=== PATIENT | male | born 1960 | race African-American/Black ===

== ENCOUNTER 2017-07-06 15:54 | Emergency (ER) | payer BC ==
[2017-07-06] MEDS ORDERED: LIDOCAINE 2% JELLY 6ML IN APPLICATOR. (16:34)
[2017-07-06 16:53] LABS: ADD MAN DIFF? NO
[2017-07-06 16:54] LABS: BASO % 1 % (0-3); EOS # 0.1 x10^3/uL (0.0-0.7); EOS % 1 % (0-3); HEMOGLOBIN 13.5 g/dL (13.0-17.5); LYMPH # 1.6 x10^3/uL (1.0-4.8); LYMPH % 26 % (24-48); MEAN CORPUSCULAR HEMOGLOBIN 28 pg (25-35); MEAN CORPUSCULAR HGB CONC 33 g/dL (31-37); MEAN CORPUSCULAR VOLUME 86 fL (79-100); MONO % 16 % (0-9); NEUT # 3.4 x10^3uL (1.8-7.7); NEUT % 56 % (31-73); PLATELET COUNT 221 x10^3/uL (140-400); RED BLOOD COUNT 4.79 x10^6/uL (4.30-5.70); RED CELL DISTRIBUTION WIDTH 14.8 % (11.5-14.5); WHITE BLOOD COUNT 6.2 x10^3/uL (4.0-11.0)
[2017-07-06] MEDS: ONDANSETRON PF 4 MG/2 ML VIAL. IV (16:56)
[2017-07-06] MEDS: fentaNYL PF VIAL 100 MCG/2 ML VIAL IV (16:58)
[2017-07-06] MEDS: LIDOCAINE WITH 8.4% SOD BICARB 3 ML DISP.SYRIN. INJ (17:04)
[2017-07-06 17:08] LABS: ANION GAP 4 (6-14); BLOOD UREA NITROGEN 16 mg/dL (8-26); BUN/CREATININE RATIO 20 (6-20); CALCIUM 9.3 mg/dL (8.5-10.1); CARBON DIOXIDE 34 mmol/L (21-32); CHLORIDE 99 mmol/L (98-107); CREATININE 0.8 mg/dL (0.7-1.3); GFR 120.6; GLUCOSE 297 mg/dL (70-99); POTASSIUM 3.7 mmol/L (3.5-5.1); SODIUM 137 mmol/L (136-145)
[2017-07-06 17:14] LABS: ALBUMIN 3.5 g/dL (3.4-5.0); ALBUMIN/GLOBULIN RATIO 0.7 (1.0-1.7); ALK PHOS 61 U/L (46-116); ALT (SGPT) 31 U/L (16-63); AST (SGOT) 20 U/L (15-37); TOTAL BILIRUBIN 0.6 mg/dL (0.2-1.0); TOTAL PROTEIN 8.4 g/dL (6.4-8.2)
[2017-07-06 18:06] LABS: BILIRUBIN,URINE NEGATIVE (NEG); COLOR,URINE YELLOW; GLUCOSE,URINE 100 mg/dL (NEG); NITRITE,URINE NEGATIVE (NEG); PROTEIN,URINE 30 mg/dL (NEG-TRACE)
[2017-07-06 18:16] LABS: CLARITY,URINE HAZY
[2017-07-06 18:18] LABS: BACTERIA,URINE MODERATE /HPF (0-FEW); RBC,URINE >40 /HPF (0-2); SQUAMOUS EPITHELIAL CELL,UR FEW /LPF
== END 2017-07-06 18:18 | disposition home or self-care (01) ==
LOC: ER 15:54
DX: N47.1 Phimosis (principal); N47.5 Adhesions of prepuce and glans penis; I10 Essential (primary) hypertension; R73.9 Hyperglycemia, unspecified; E66.9 Obesity, unspecified; Z90.49 Acquired absence of other specified parts of digestive tract; Z68.41 Body mass index [BMI] 40.0-44.9, adult
CPT/HCPCS: 36415; 51702; 54450; 80053; 81001; 85025; 87086; 96374; 96375; 99284-25; J2405; J3010

== ENCOUNTER 2017-11-28 12:06 | Inpatient (IN) | payer BC ==
[2017-11-28 14:29] LABS: ADD MAN DIFF? NO
[2017-11-28 14:31] LABS: BASO # 0.1 x10^3/uL (0.0-0.2); BASO % 1 % (0-3); EOS # 0.1 x10^3/uL (0.0-0.7); EOS % 1 % (0-3); HEMATOCRIT 40.7 % (39.0-53.0); HEMOGLOBIN 13.7 g/dL (13.0-17.5); LYMPH # 1.7 x10^3/uL (1.0-4.8); LYMPH % 24 % (24-48); MEAN CORPUSCULAR HEMOGLOBIN 29 pg (25-35); MEAN CORPUSCULAR HGB CONC 34 g/dL (31-37); MEAN CORPUSCULAR VOLUME 85 fL (79-100); MONO % 14 % (0-9); NEUT # 4.2 x10^3uL (1.8-7.7); NEUT % 60 % (31-73); PLATELET COUNT 219 x10^3/uL (140-400); RED BLOOD COUNT 4.77 x10^6/uL (4.30-5.70); RED CELL DISTRIBUTION WIDTH 14.4 % (11.5-14.5)
[2017-11-28 14:38] LABS: ANION GAP 5 (6-14); BLOOD UREA NITROGEN 16 mg/dL (8-26); BUN/CREATININE RATIO 20 (6-20); CALCIUM 9.8 mg/dL (8.5-10.1); CARBON DIOXIDE 30 mmol/L (21-32); CHLORIDE 101 mmol/L (98-107); CREATININE 0.8 mg/dL (0.7-1.3); GFR 120.1; GLUCOSE 267 mg/dL (70-99); POTASSIUM 3.8 mmol/L (3.5-5.1); SODIUM 136 mmol/L (136-145)
[2017-11-28 14:44] LABS: ALBUMIN 3.5 g/dL (3.4-5.0); ALBUMIN/GLOBULIN RATIO 0.7 (1.0-1.7); ALK PHOS 66 U/L (46-116); ALT (SGPT) 24 U/L (16-63); AST (SGOT) 15 U/L (15-37); TOTAL BILIRUBIN 0.7 mg/dL (0.2-1.0); TOTAL PROTEIN 8.5 g/dL (6.4-8.2)
[2017-11-28] MEDS: ONDANSETRON PF 4 MG/2 ML VIAL. IV (14:58)
[2017-11-28] MEDS: MORPHINE SULFATE 10 MG/ML VIAL. IV (14:59)
[2017-11-28] MEDS ORDERED: fentaNYL PF VIAL 100 MCG/2 ML VIAL ×2 (15:33→16:17)
[2017-11-28] MEDS ORDERED: MIDAZOLAM HCL/PF 2 MG/2 ML VIAL. (15:33)
[2017-11-28 15:36] LABS: PROTHROMBIN TIME PATIENT 12.9 SEC (11.7-14.0)
[2017-11-28] MEDS ORDERED: LIDOCAINE WITH 8.4% SOD BICARB 3 ML DISP.SYRIN. (15:41)
[2017-11-28] MEDS ORDERED: IOHEXOL 240 MG/ML 50ML VIAL. (15:41)
[2017-11-28] MEDS: IOHEXOL 240 MG/ML 50ML VIAL. IJ (16:30)
[2017-11-28] MEDS: MIDAZOLAM HCL/PF 2 MG/2 ML VIAL. IV (16:30)
[2017-11-28] MEDS: fentaNYL PF VIAL 100 MCG/2 ML VIAL IV (16:30)
[2017-11-28] MEDS ORDERED: CONTRAST GIVEN. MC (16:30)
[2017-11-28] MEDS: LIDOCAINE WITH 8.4% SOD BICARB 3 ML DISP.SYRIN. IJ (16:30)
[2017-11-28 17:48] LABS: BILIRUBIN,URINE NEGATIVE (NEG); CLARITY,URINE CLEAR; COLOR,URINE YELLOW; GLUCOSE,URINE 500 mg/dL (NEG); NITRITE,URINE NEGATIVE (NEG); PH,URINE 6.5; PROTEIN,URINE NEGATIVE (NEG-TRACE)
[2017-11-28 18:00] LABS: BACTERIA,URINE FEW /HPF (0-FEW); RBC,URINE >40 /HPF (0-2)
[2017-11-28] MEDS ORDERED: ZOLPIDEM 5 MG TABLET. PO (18:00)
[2017-11-28] MEDS ORDERED: DOCUSATE SODIUM 100 MG CAPSULE. PO (18:00)
[2017-11-28] MEDS ORDERED: oxyCODONE IR 5 MG TABLET PO (18:00)
[2017-11-28] MEDS ORDERED: DEXTROSE 50% 25 GM / 50ML DISP.SYRIN. IV (18:00)
[2017-11-28] MEDS ORDERED: fentaNYL PF VIAL 100 MCG/2 ML VIAL IV (18:00)
[2017-11-28 18:19] LABS: POC GLUCOSE 268 mg/dL (70-99)
[2017-11-28] MEDS: amLODIPine BESYLATE 5 MG TABLET PO (18:41)
[2017-11-28 20:54] LABS: POC GLUCOSE 283 mg/dL (70-99)
[2017-11-29 07:40] LABS: ADD MAN DIFF? NO
[2017-11-29 07:46] LABS: BASO % 0 % (0-3); EOS % 1 % (0-3); HEMATOCRIT 40.1 % (39.0-53.0); HEMOGLOBIN 13.8 g/dL (13.0-17.5); LYMPH # 1.4 x10^3/uL (1.0-4.8); LYMPH % 20 % (24-48); MEAN CORPUSCULAR HEMOGLOBIN 30 pg (25-35); MEAN CORPUSCULAR HGB CONC 34 g/dL (31-37); MEAN CORPUSCULAR VOLUME 86 fL (79-100); MONO # 0.9 x10^3/uL (0.0-1.1); MONO % 13 % (0-9); NEUT # 4.8 x10^3uL (1.8-7.7); NEUT % 66 % (31-73); PLATELET COUNT 233 x10^3/uL (140-400); RED BLOOD COUNT 4.68 x10^6/uL (4.30-5.70); RED CELL DISTRIBUTION WIDTH 14.6 % (11.5-14.5); WHITE BLOOD COUNT 7.2 x10^3/uL (4.0-11.0)
[2017-11-29 08:10] LABS: POC GLUCOSE 263 mg/dL (70-99)
[2017-11-29 08:14] LABS: ANION GAP 2 (6-14); BLOOD UREA NITROGEN 12 mg/dL (8-26); CALCIUM 9.5 mg/dL (8.5-10.1); CARBON DIOXIDE 36 mmol/L (21-32); CHLORIDE 101 mmol/L (98-107); CREATININE 0.9 mg/dL (0.7-1.3); GFR 104.9; GLUCOSE 280 mg/dL (70-99); POTASSIUM 3.9 mmol/L (3.5-5.1); SODIUM 139 mmol/L (136-145)
[2017-11-29] MEDS: amLODIPine BESYLATE 5 MG TABLET PO (08:14)
[2017-11-29] MEDS: INSULIN LISPRO 300 UNITS/3 ML INSULN.PEN. SQ ×2 (08:24→12:00)
[2017-11-29 19:37] LABS: POC GLUCOSE 262 mg/dL (70-99)
== END 2017-11-29 13:30 | disposition home or self-care (01) | DRG 696 ==
LOC: 4 NORTH 17:42 → ER 12:06 → 4 NORTH 16:40
PROC: BT101ZZ Fluoroscopy of Bladder using Low Osmolar Contrast (ICD-10-PCS; principal; 2017-11-28)
PROC: 0T9B30Z Drainage of Bladder with Drainage Device, Percutaneous Approach (ICD-10-PCS; 2017-11-28)
DX: R33.9 Retention of urine, unspecified (principal); I10 Essential (primary) hypertension; N13.9 Obstructive and reflux uropathy, unspecified; N47.1 Phimosis
CPT/HCPCS: 36415; 51102; 51600; 51701; 76942; 80048; 80053; 81001; 82962; 85025; 85610; 96374; 96375; 99152; 99153; 99285; 99285-25; C1892; J1815; J1956; J2250; J2270; J2405; J3010; Q9966

== ENCOUNTER → 2018-01-19 | Day surgery (SDC) | payer BC ==
[~2018-01-19] VITALS: Ht 185.4 cm; Wt 147.0 kg
[~2018-01-19] MED LIST: AMLO2.5T2 PO; BACITRACIN TOPICAL OINT 14GM TUBE. TP ONE; BUPIVACAINE 0.5% 50 ML VIAL. ONE; CIPR250T30 PO; DESFLURANE > 120 MINUTES IH ONE; DEXAMETHASONE SOD PHOS 20 MG/5 ML VIAL. ONE; FAMOTIDINE 20 MG/2 ML VIAL ONE; HYDR-971 PO; HYDROcodone/APAP 5/325MG 1 TAB TABLET PO ONE; IV RINGERS,LACTATED 1000ML 1,000 ML IV SCH; LABETALOL 20 MG/4 ML DISP.SYRIN. IVP PRN; LIDOCAINE 1% PF 2 ML VIAL. ID PRN; LIDOCAINE 2% JELLY 6ML IN APPLICATOR. ONE; LIDOCAINE 2% PF Vial for OR 5 ML VIAL. ONE; LISI-338 PO; METF500T9 PO; MIDAZOLAM HCL/PF 2 MG/2 ML VIAL. ONE; MORPHINE SULFATE 2 MG/ML VIAL. IV PRN; ONDANSETRON PF 4 MG/2 ML VIAL. IV PRN; ONDANSETRON PF 4 MG/2 ML VIAL. ONE; OXYB5TAB7 PO; PROCHLORPERAZINE 10 MG/2 ML VIAL. IV PRN; PROPOFOL 20 ML IV ONE; SCOPOLAMINE 1.5MG PATCH. TD ONE; SUCCINYLCHOLINE 200 MG/10 ML VIAL. ONE; SULF1TAB23 PO; fentaNYL PF VIAL 100 MCG/2 ML VIAL IV PRN; fentaNYL PF VIAL 100 MCG/2 ML VIAL ONE
[2018-01-19] MEDS: fentaNYL PF VIAL 100 MCG/2 ML VIAL IV PRN ×2 (15:42→15:59)
--- NOTE | 2018-01-19 15:46 | PDOC ---
BRIEF OPERATIVE NOTE Pre-Op Diagnosis phimosis Post-Op Diagnosis phimosis, urethral strictures Procedure Performed dorsal slit, cystoscopy, suprapubic tube exchange Surgeon Lanre Altamirano Nuclear Medicine Tech none Anesthesia Type: General Blood Loss 20 cc Specimens Obtained prepuce Findings phimosis, dense glanular adhesions, bulbar and membranous urethral stricture, vitiligo vs lichen sclerosis Complications none Operative Note dictated LANRE ALTAMIRANO MD Jan 19, 2018 15:46
--- NOTE | 2018-01-19 15:53 | DISCH ---
DISCHARGE INSTRUCTIONS Condition on Discharge Condition on Discharge: Stable Activity After Discharge Activity Instructions for Disc: Activity as tolerated Bathing Instructions: Shower-keep dressing dry (After your dressing is removed in 48 hrs.) Lifting Instructions after Dis: Add. restrict see below (No restrictions ) Driving Instructions after Dis: Do not drive today, Other, see below (Do not drive if taking narcotic pain medications) Weight Bearing Status after Di: No restrictions Diet after Discharge Diet after Discharge: Regular Wound Incision Care Wound/Incision Care: Ice to area for comfort, Other, see below (Remove dressing in 48 hrs unless it feels too tight. Clean the operative site daily with soap and water. Apply veseline to the incision. ) Wound Care Equipment: Dressings Checks after Discharge DC Comment: Record voided volumes and post-void residuals by uncapping your tube. Contacting the DR. after DC Call your doctor for: Fever, uncontrolled pain, bleeding, concerns for infection, trouble urinating, or other concerns. Follow-Up Follow up with: Dr. Altamirano in 2 weeks. LANRE ALTAMIRANO MD Jan 19, 2018 15:53
--- NOTE | 2018-01-19 16:36 | OP ---
DATE OF SURGERY: 01/19/2018 PREOPERATIVE DIAGNOSIS: Phimosis. POSTOPERATIVE DIAGNOSES: 1. Phimosis. 2. Urethral stricture. ANESTHESIA: General. COMPLICATIONS: None. BLOOD LOSS: 20 mL. INDICATIONS: The patient is a 57-year-old male who presented urgently to the Emergency Room with a very tight phimosis. He underwent a suprapubic tube placement at that time and presents today for the above-mentioned procedures. DESCRIPTION OF PROCEDURE: The patient was met in the preoperative holding area where his procedure, risks, benefits, alternatives were reviewed in detail. Informed consent was obtained. He was brought back to the operating room and placed supine on the operating table. A timeout was called, identifying the correct patient, procedure, preoperative antibiotics. All members of the surgical team were in agreement. General anesthesia was induced and he was repositioned into dorsal lithotomy, prepped and draped in a sterile fashion. Next, Koki clamps were placed at the 12 o'clock position on his prepuce and held in place for roughly 2 minutes. These were then divided sharply. We continue this until we reached as proximally on the glans as possible. He did have very dense adhesions to the glans itself and we were really only able to expose the anterior surface and some of the lateral surfaces towards the meatus. The skin edges were oversewn with 3-0 chromic. Hemostasis was excellent. A piece of the prepuce was sent to pathology labeled prepuce. Next, we placed a 17-Vietnamese rigid cystoscope atraumatically through his meatus into his urethra. There were no abnormalities noted within the anterior urethra. In the distal bulbar urethra, there were some ring-like strictures of which the scope was able to traverse and dilate. Pictures of these were taken. He also had a membranous urethral stricture that was also able to be dilated with the scope. His prostate was nonobstructing; however, he had a very high bladder neck. This made cystoscopy somewhat challenging. The floor of his bladder as well as some of the sidewalls were covered in bullous edema and his bladder was extremely friable and bled very easily as best we can tell from cystoscopy with 30 and 70 degree lenses. There were no mucosal lesions concerning for malignancy. There were no stones or other debris. We were unable to identify his ureteral orifices on the trigone. Attempts at placing an 18-Vietnamese Councill catheter through the suprapubic tube tract were unsuccessful. A sensor wire was then fed through the tract and into the bladder under direct vision. Over the wire, a 16-Vietnamese self-made Councill catheter was placed without difficulty. The balloon was inflated with 10 mL of sterile water and hubbed at the anterior bladder surface. The scope was then looked out under direct vision. Next, we applied Dermabond to his incisions and covered these incisions as well as his glans and bacitracin ointment. A gauze and Coban dressing were applied loosely to the penis and the suprapubic tube was secured with a silk. The suprapubic tube was plugged. He was then awoken and transferred to the PACU in stable condition with plans to undergo a voiding trial at home and if he is able to void without issue, we will remove his suprapubic tube. He has followup appointment in roughly 2 weeks. LANRE ALTAMIRANO MD DR: REGINALDO/mike JOB#: [id number] / [id number] СЕРГЕЙ
[2018-01-19 16:55] VITALS: BP 177/99
--- NOTE | 2018-01-23 09:10 | PATHOLOGY ---
[facility] Accession Number: [id number] . 01 Material submitted: . PREPUCE TISSUE . 02 Diagnosis: Segment of skin, prepuce: - Balanitis xerotica obliterans. [facility]/01/22/2018 . 02 Comment: There is no evidence of malignancy. (JPM/db; 01/22/18) . 02 Electronically signed: . Maurizio Dunn MD, Pathologist NPI- [id number] . 01 Gross description: . The specimen is received in formalin, labeled "Arturo JR, Carlos and prepuce", is a U-shaped soft tissue measuring 3.0 x 1.5 x 0.6 cm. There is a rim of redmond-white skin measuring up to 0.7 cm. One surface is inked blue, opposite black and one tip is inked green. The specimen is serially section and entirely submitted in A1-A3 with tips in A3. Photographs are taken. . . ([facility]; 01/20/2018) [facility]S . 02 Pathologist provided ICD-10: N48.0 . 02 CPT . 093403 Performed at: 01 [facility] [address], [place] [id number] MD Quinton Sunshine MD Phone: [phone] Performed at: 02 [facility] [address] [place], [place] [id number] MD Maurizio Dunn MD Phone: [phone]
== END | disposition home or self-care (01) ==
LOC: SURG 11:09
PROVIDERS: ATTEND Urology
DX: Z46.6 Encounter for fitting and adjustment of urinary device (principal); N48.0 Leukoplakia of penis; N47.1 Phimosis; N35.9 Urethral stricture, unspecified; I10 Essential (primary) hypertension; E11.9 Type 2 diabetes mellitus without complications; Z83.3 Family history of diabetes mellitus; Z82.49 Family history of ischemic heart disease and other diseases of the circulatory system; Z90.49 Acquired absence of other specified parts of digestive tract; E66.9 Obesity, unspecified; Z68.41 Body mass index [BMI] 40.0-44.9, adult; Z72.89 Other problems related to lifestyle; Z98.890 Other specified postprocedural states; Z79.84 Long term (current) use of oral hypoglycemic drugs; Z79.899 Other long term (current) drug therapy
CPT/HCPCS: 51705; 54161; 82962; C1713; J0330; J1100; J2001; J2250; J2405; J2704; J3010; J7120; S0028; 88304; A7015; J3490; A4461

== ENCOUNTER 2018-10-28 18:48 | Inpatient (IN) | payer BC, SELFPAY ==
[~2018-10-28] VITALS: Ht 185.4 cm; Wt 163.5 kg
[~2018-10-28 18:48] MED LIST changes: -BACITRACIN TOPICAL OINT 14GM TUBE. TP ONE; -BUPIVACAINE 0.5% 50 ML VIAL. ONE; -DESFLURANE > 120 MINUTES IH ONE; -DEXAMETHASONE SOD PHOS 20 MG/5 ML VIAL. ONE; -FAMOTIDINE 20 MG/2 ML VIAL ONE; +HYDR-3164 PO; -HYDR-971 PO; -HYDROcodone/APAP 5/325MG 1 TAB TABLET PO ONE; -IV RINGERS,LACTATED 1000ML 1,000 ML IV SCH; -LABETALOL 20 MG/4 ML DISP.SYRIN. IVP PRN; -LIDOCAINE 1% PF 2 ML VIAL. ID PRN; -LIDOCAINE 2% JELLY 6ML IN APPLICATOR. ONE; -LIDOCAINE 2% PF Vial for OR 5 ML VIAL. ONE; -MIDAZOLAM HCL/PF 2 MG/2 ML VIAL. ONE; -MORPHINE SULFATE 2 MG/ML VIAL. IV PRN; -ONDANSETRON PF 4 MG/2 ML VIAL. IV PRN; -ONDANSETRON PF 4 MG/2 ML VIAL. ONE; -PROCHLORPERAZINE 10 MG/2 ML VIAL. IV PRN; -PROPOFOL 20 ML IV ONE; -SCOPOLAMINE 1.5MG PATCH. TD ONE; -SUCCINYLCHOLINE 200 MG/10 ML VIAL. ONE; -fentaNYL PF VIAL 100 MCG/2 ML VIAL IV PRN; -fentaNYL PF VIAL 100 MCG/2 ML VIAL ONE
[2018-10-28] MEDS ORDERED: FUROSEMIDE 40 MG/4 ML VIAL. IVP ONE (19:15)
[2018-10-28 19:22] LABS: BASO % 1 % (0-3); EOS % 1 % (0-3); HEMOGLOBIN 13.2 g/dL (13.0-17.5); LYMPH # 1.2 x10^3/uL (1.0-4.8); LYMPH % 17 % (24-48); MEAN CORPUSCULAR HEMOGLOBIN 27 pg (25-35); MEAN CORPUSCULAR HGB CONC 31 g/dL (31-37); MEAN CORPUSCULAR VOLUME 86 fL (79-100); MONO # 1.4 x10^3/uL (0.0-1.1); MONO % 21 % (0-9); NEUT # 4.3 x10^3uL (1.8-7.7); NEUT % 62 % (31-73); PLATELET COUNT 279 x10^3/uL (140-400); RED BLOOD COUNT 4.86 x10^6/uL (4.30-5.70); RED CELL DISTRIBUTION WIDTH 16.9 % (11.5-14.5)
[2018-10-28 19:30] LABS: CALCIUM 9.3 mg/dL (8.5-10.1); CREATININE 1.4 mg/dL (0.7-1.3); GFR 62.8; POTASSIUM 5.2 mmol/L (3.5-5.1)
[2018-10-28 19:35] LABS: ALBUMIN/GLOBULIN RATIO 0.7 (1.0-1.7); TOTAL BILIRUBIN 1.3 mg/dL (0.2-1.0); TOTAL PROTEIN 7.2 g/dL (6.4-8.2)
--- NOTE | 2018-10-28 19:37 | PHYS DOC ---
Past Medical History Past Medical History: Hypertension, Other Additional Past Medical Histor: URINARY RETENTION Past Surgical History: Appendectomy Additional Past Surgical Histo: RIGHT KNEE Alcohol Use: Rarely Drug Use: None Adult General Chief Complaint Chief Complaint: SHORTNESS OF BREATH HPI HPI Patient is a 58-year-old male who presents with complaint of shortness of breath. Patient states that he feels like the shortness of breath is probably been present for around the last few weeks. He states that shortness of breath is worsened with exertion and he states that he is having to sleep partially sitting up because he becomes so short of breath when he tries to lie flat. He denies any chest pain. He does admit to some fluttery feelings in his chest however. He denies any nausea, vomiting or diaphoresis. He does state that he has noticed increase in swelling in his legs. Patient states that nothing is improving his symptoms.[] Review of Systems Review of Systems Constitutional: Denies fever or chills [] Respiratory: Positive shortness of breath [] Cardiovascular: No additional information not addressed in HPI [] GI: Denies abdominal pain, nausea, vomiting or diarrhea [] Integument: Denies rash or skin lesions [] Neurologic: Denies headache, focal weakness or sensory changes [] All other systems were reviewed and found to be within normal limits, except as documented in this note. Current Medications Current Medications Current Medications Medications (Trade) Dose Ordered Sig/Ayush Start Time Stop Time Status Last Admin Dose Admin Furosemide (Lasix) 60 mg 1X ONCE 10/28/18 19:15 10/28/18 19:16 DC 10/28/18 19:31 60 MG Info (CONTRAST GIVEN -- Rx MONITORING) 1 each PRN DAILY PRN 10/28/18 21:15 10/30/18 21:14 Iohexol (Omnipaque 350 Mg/ml) 100 ml 1X ONCE 10/28/18 21:15 10/28/18 21:16 DC 10/28/18 21:15 100 ML Allergies Allergies Allergies Coded Allergies Type Severity Reaction Last Updated Verified No Known Drug Allergies 01/19/18 No Physical Exam Physical Exam Constitutional: Well developed, well nourished, no acute distress, non-toxic appearance. [] HENT: Normocephalic, atraumatic, bilateral external ears normal, oropharynx moist, no oral exudates, nose normal. [] Eyes: PERRLA, EOMI, conjunctiva normal, no discharge. [] Neck: Normal range of motion, no tenderness, supple, no stridor. [] Cardiovascular:Heart rate regular rhythm, no murmur [] Lungs & Thorax: Rales are noted in the lung bases to auscultation [] Abdomen: Bowel sounds normal, soft, no tenderness. [] Skin: Warm, dry, no erythema, no rash. [] Extremities: No tenderness, no cyanosis, no clubbing, ROM intact, with 3+ lower extremity pitting edema. [] Neurologic: Alert and oriented X 3, no focal deficits noted. [] Current Patient Data Vital Signs Vital Signs Date Time Temp Pulse Resp B/P (MAP) Pulse Ox O2 Delivery O2 Flow Rate FiO2 10/28/18 19:00 97.9 102 24 157/85 (109) 93 Nasal Cannula 4.0 97.9 Lab Values Laboratory Tests Test 10/28/18 19:05 10/28/18 20:07 White Blood Count 7.0 x10^3/uL (4.0-11.0) Red Blood Count 4.86 x10^6/uL (4.30-5.70) Hemoglobin 13.2 g/dL (13.0-17.5) Hematocrit 42.0 % (39.0-53.0) Mean Corpuscular Volume 86 fL (79-100) Mean Corpuscular Hemoglobin 27 pg (25-35) Mean Corpuscular Hemoglobin Concent 31 g/dL (31-37) Red Cell Distribution Width 16.9 % (11.5-14.5) H Platelet Count 279 x10^3/uL (140-400) Neutrophils (%) (Auto) 62 % (31-73) Lymphocytes (%) (Auto) 17 % (24-48) L Monocytes (%) (Auto) 21 % (0-9) H Eosinophils (%) (Auto) 1 % (0-3) Basophils (%) (Auto) 1 % (0-3) Neutrophils # (Auto) 4.3 x10^3uL (1.8-7.7) Lymphocytes # (Auto) 1.2 x10^3/uL (1.0-4.8) Monocytes # (Auto) 1.4 x10^3/uL (0.0-1.1) H Eosinophils # (Auto) 0.0 x10^3/uL (0.0-0.7) Basophils # (Auto) 0.0 x10^3/uL (0.0-0.2) Segmented Neutrophils % 58 % (35-66) Band Neutrophils % 2 % (0-9) Lymphocytes % 22 % (24-48) L Monocytes % 15 % (0-10) H Eosinophils % 2 % (0-5) Basophils % 1 % (0-3) Platelet Estimate Adequate (ADEQUATE) Polychromasia Slight D-Dimer (Melva) 5.30 ug/mlFEU (0.00-0.50) H Sodium Level 141 mmol/L (136-145) Potassium Level 5.2 mmol/L (3.5-5.1) H Chloride Level 100 mmol/L (98-107) Carbon Dioxide Level 35 mmol/L (21-32) H Anion Gap 6 (6-14) Blood Urea Nitrogen 44 mg/dL (8-26) H Creatinine 1.4 mg/dL (0.7-1.3) H Estimated GFR (Cockcroft-Gault) 62.8 BUN/Creatinine Ratio 31 (6-20) H Glucose Level 65 mg/dL (70-99) L Calcium Level 9.3 mg/dL (8.5-10.1) Total Bilirubin 1.3 mg/dL (0.2-1.0) H Aspartate Amino Transferase (AST) 34 U/L (15-37) Alanine Aminotransferase (ALT) 44 U/L (16-63) Alkaline Phosphatase 76 U/L (46-116) Troponin I Quantitative < 0.017 ng/mL (0.000-0.055) QE-Vif-O-Type Natriuretic Peptide 5329 pg/mL (0-124) H Total Protein 7.2 g/dL (6.4-8.2) Albumin 3.0 g/dL (3.4-5.0) L Albumin/Globulin Ratio 0.7 (1.0-1.7) L Urine Collection Type Unknown Urine Color Yellow Urine Clarity Clear Urine pH 5.5 Urine Specific [place] 1.010 Urine Protein Negative mg/dL (NEG-TRACE) Urine Glucose (UA) Negative mg/dL (NEG) Urine Ketones (Stick) Negative mg/dL (NEG) Urine Blood Negative (NEG) Urine Nitrite Negative (NEG) Urine Bilirubin Negative (NEG) Urine Urobilinogen Dipstick 2.0 mg/dL (0.2 mg/dL) Urine Leukocyte Esterase Negative (NEG) Urine RBC 0 /HPF (0-2) Urine WBC 1-4 /HPF (0-4) Urine Squamous Epithelial Cells Mod /LPF Urine Bacteria 0 /HPF (0-FEW) Urine Hyaline Casts Many /HPF Urine Mucus Mod /LPF Laboratory Tests 10/28/18 19:05 Laboratory Tests 10/28/18 19:05 EKG EKG [] Interpretation Time: EKG demonstrates sinus rhythm with rate of 99. Radiology/Procedures Radiology/Procedures [] Impressions: PROCEDURE: CT ANGIOGRAPHY CHEST PQRS Compliance statement: One or more of the following individualized dose reduction techniques were utilized for this examination: 1. Automated exposure control. 2. Adjustment of the mA and/or kV according to patient size. 3. Use of iterative reconstruction technique. Indication:Shortness of breath. TECHNIQUE: CT angiogram of the chest with IV contrast with multiplanar MIP reformats. COMPARISON: None FINDINGS: Suboptimal PE study due to contrast bolus timing. No central filling defects in the pulmonary arteries. Evaluation of segmental and subsegmental pulmonary arteries is limited. Heart is moderately enlarged in size. No pericardial effusion. Moderate right pleural effusion. No enlarged axillary, mediastinal or hilar adenopathy. Motion artifact is seen in the lungs limiting optimal evaluation. Consolidation is seen in the right lung base. Small volume ascites is seen. Small amount of perigastric fluid is seen, nonspecific. No suspicious bony lesion. IMPRESSION: 1. Suboptimal PE study due to contrast bolus timing and breathing motion artifact. No central embolus. Laceration of segmental and subsegmental pulmonary arteries is limited. 2. Small to moderate volume right pleural effusion with consolidation in the right lung base which may be secondary to passive atelectasis from adjacent pleural effusion or pneumonia. 3. Small volume perihepatic ascites, nonspecific. Electronically signed by: Michael Camargo DO (10/28/2018 9:53 PM) [facility] Course & Med Decision Making Course & Med Decision Making Pertinent Labs and Imaging studies reviewed. (See chart for details) [] Dragon Disclaimer Dragon Disclaimer This electronic medical record was generated, in whole or in part, using a voice recognition dictation system. Departure Departure Impression: Primary Impression: CHF (congestive heart failure) Additional Impression: Hypoxemia Disposition: ADMITTED INPATIENT Admitting Physician: Other (Dr. Dean) Condition: IMPROVED Referrals: UNKNOWN PCP NAME (PCP) Problem Qualifiers Primary Impression: CHF (congestive heart failure) Heart failure type: unspecified Heart failure chronicity: unspecified Qualified Codes: I50.9 - Heart failure, unspecified SUNIL REICH Jr. DO October 28, 2018 19:37
--- NOTE | 2018-10-28 19:41 | RAD ---
Single view chest dated 10/28/2018. No comparison available. CLINICAL INDICATION: Dyspnea. FINDINGS: Single upright portable exam performed. Heart size mildly enlarged. Elevation of right hemidiaphragm. Lungs are clear, without focal consolidation. Vascular interstitium within normal limits. No pleural effusion or pneumothorax. IMPRESSION: No acute radiographic abnormality. Electronically signed by: Nathaniel Louise MD (10/28/2018 7:38 PM) [facility]
[2018-10-28 20:08] LABS: % BASOS 1 % (0-3)
[2018-10-28 20:09] LABS: % BANDS 2 % (0-9); % EOS 2 % (0-5); % LYMPHS 22 % (24-48); % MONOS 15 % (0-10); % SEGS 58 % (35-66); PLT ESTIMATE ADEQUATE (ADEQUATE)
[2018-10-28 20:10] LABS: POLYCHROMASIA SLIGHT
[2018-10-28 20:18] LABS: BILIRUBIN,URINE NEGATIVE (NEG); CLARITY,URINE CLEAR; COLOR,URINE YELLOW; NITRITE,URINE NEGATIVE (NEG); PH,URINE 5.5; PROTEIN,URINE NEGATIVE (NEG-TRACE)
[2018-10-28 20:26] LABS: HYALINE CASTS, URINE MANY /HPF; SQUAMOUS EPITHELIAL CELL,UR MOD /LPF
[2018-10-28 20:28] LABS: BACTERIA,URINE 0 /HPF (0-FEW); RBC,URINE 0 /HPF (0-2)
[2018-10-28] MEDS ORDERED: CONTRAST GIVEN. MC PRN (21:15)
[2018-10-28] MEDS ORDERED: IOHEXOL 350 MG/ML 100 ML VIAL. IV ONE (21:15)
--- NOTE | 2018-10-28 21:56 | RAD ---
PQRS Compliance statement: One or more of the following individualized dose reduction techniques were utilized for this examination: 1. Automated exposure control. 2. Adjustment of the mA and/or kV according to patient size. 3. Use of iterative reconstruction technique. Indication:Shortness of breath. TECHNIQUE: CT angiogram of the chest with IV contrast with multiplanar MIP reformats. COMPARISON: None FINDINGS: Suboptimal PE study due to contrast bolus timing. No central filling defects in the pulmonary arteries. Evaluation of segmental and subsegmental pulmonary arteries is limited. Heart is moderately enlarged in size. No pericardial effusion. Moderate right pleural effusion. No enlarged axillary, mediastinal or hilar adenopathy. Motion artifact is seen in the lungs limiting optimal evaluation. Consolidation is seen in the right lung base. Small volume ascites is seen. Small amount of perigastric fluid is seen, nonspecific. No suspicious bony lesion. IMPRESSION: 1. Suboptimal PE study due to contrast bolus timing and breathing motion artifact. No central embolus. Laceration of segmental and subsegmental pulmonary arteries is limited. 2. Small to moderate volume right pleural effusion with consolidation in the right lung base which may be secondary to passive atelectasis from adjacent pleural effusion or pneumonia. 3. Small volume perihepatic ascites, nonspecific. Electronically signed by: Michael Camargo DO (10/28/2018 9:53 PM) [facility]
[2018-10-28] MEDS ORDERED: MORPHINE SULFATE 2 MG/ML VIAL. IV PRN (22:15)
[2018-10-28] MEDS ORDERED: ACETAMINOPHEN 325 MG TABLET. PO PRN (22:15)
[2018-10-28] MEDS ORDERED: ONDANSETRON PF 4 MG/2 ML VIAL. IV PRN (22:15)
[2018-10-29] MEDS ORDERED: hydrALAZINE 20 MG/ML VIAL. IVP ONE (00:30)
[2018-10-29] MEDS ORDERED: GLIM1TAB PO (01:40)
[2018-10-29] MEDS ORDERED: FURO40TA4 PO (01:40)
[2018-10-29] MEDS ORDERED: POTA20TA82 PO (01:40)
[2018-10-29] MEDS ORDERED: METF500T9 PO (01:40)
[2018-10-29] MEDS ORDERED: AMLO5TAB10 PO (01:40)
[2018-10-29] MEDS ORDERED: LISI1TAB5 PO (01:40)
[2018-10-29 04:19] LABS: BASO # 0.1 x10^3/uL (0.0-0.2); BASO % 1 % (0-3); EOS # 0.1 x10^3/uL (0.0-0.7); EOS % 1 % (0-3); HEMATOCRIT 40.7 % (39.0-53.0); HEMOGLOBIN 12.8 g/dL (13.0-17.5); LYMPH # 1.1 x10^3/uL (1.0-4.8); LYMPH % 15 % (24-48); MEAN CORPUSCULAR HEMOGLOBIN 27 pg (25-35); MEAN CORPUSCULAR HGB CONC 31 g/dL (31-37); MEAN CORPUSCULAR VOLUME 86 fL (79-100); MONO # 1.6 x10^3/uL (0.0-1.1); MONO % 21 % (0-9); NEUT # 4.7 x10^3uL (1.8-7.7); NEUT % 62 % (31-73); PLATELET COUNT 272 x10^3/uL (140-400); RED BLOOD COUNT 4.71 x10^6/uL (4.30-5.70); RED CELL DISTRIBUTION WIDTH 16.5 % (11.5-14.5); WHITE BLOOD COUNT 7.5 x10^3/uL (4.0-11.0)
[2018-10-29 04:26] LABS: ALBUMIN/GLOBULIN RATIO 0.7 (1.0-1.7); CALCIUM 9.3 mg/dL (8.5-10.1); CREATININE 1.2 mg/dL (0.7-1.3); POTASSIUM 4.5 mmol/L (3.5-5.1); TOTAL BILIRUBIN 1.3 mg/dL (0.2-1.0); TOTAL PROTEIN 7.2 g/dL (6.4-8.2)
--- NOTE | 2018-10-29 06:55 | EKG ---
[facility] [address] [place] [address] Test Date: 2018-10-28 Test Time: 19:03:08 Pat Name: JOHN MUNOZ Department: Room: Gender: Linux Developer: : 1960 Requested By: SUNIL REICH Order Number: [id number] Reading MD: Measurements Intervals [place] Rate: 99 P: 45 CO: 182 QRS: 104 QRSD: 76 T: 39 QT: 340 QTc: 442 Interpretive Statements SINUS RHYTHM RIGHTWARD AXIS LOW LIMB LEAD VOLTAGE QRS(T) CONTOUR ABNORMALITY CONSIDER INFERIOR MYOCARDIAL DAMAGE POSSIBLY ABNORMAL ECG RI6.01 No previous ECG available for comparison
[2018-10-29 07:00] VITALS: BP 104/76
[2018-10-29 08:33] LABS: MAGNESIUM 2.1 mg/dL (1.8-2.4)
[2018-10-29 08:34] LABS: CHOLESTEROL/HDL RATIO 4.4
[2018-10-29] MEDS ORDERED: PERFLUTREN PROTEIN-A MICROSPHR 0.22 MG/ML 3 ML VIAL. IV ONE ×2 (10:54→11:00)
[2018-10-29 11:00] VITALS: BP 114/70
--- NOTE | 2018-10-29 11:08 | PDOC2 ---
CARDIAC CONSULT DATE OF CONSULT Date of Consult DATE: 10/29/18 TIME: 10:42 REASON FOR CONSULT Reason for Consult: CHF REFERRING PHYSICIAN Referring Physician: Ru SOURCE Source: Chart review, Patient HISTORY OF PRESENT ILLNESS HISTORY OF PRESENT ILLNESS This is a pleasant 58 yo male admitted for complains of shortness of breath, Reports that he has been SOA lately and in the last week he has been more SOA. Positive for KMIBROUGH, orthonea and PND. He has never been tested for FLAKITO. Denies any chest pain, but has occasional palpitations. Denies any dizziness or passing out. He did fall about a week ago without injuries from slipping but no losing consciousness. Reports no past CAD, VTE or any liver disease. He has diabetes and HTN and takes his meds regularly. BG around 140s at home but does not check his BP regularly. He is unemplyed but no disability. No recent pneumonia, no fever or chills. PAST MEDICAL HISTORY Cardiovascular: HTN, Hyperlipidemia Pulmonary: No pertinent hx CENTRAL NERVOUS SYSTEM: Other (No pertinent history) GI: No pertinent hx Heme/Onc: No pertinent hx Hepatobiliary: No pertinent hx Psych: No pertinent hx Musculoskeletal: Osteoarthritis Rheumatologic: No pertinent hx Infectious disease: No pertinent hx ENT: No pertinent hx Renal/: UTI, Other (phimoes, urinary retention) Endocrine: Diabetes (2) Dermatology: No pertinent hx PAST SURGICAL HISTORY Past Surgical History: Total knee replacement (left knee) FAMILY HISTORY Family History noncontributory to CV SOCIAL HISTORY Smoke: No ALCOHOL: none Lives: with Family CURRENT MEDICATIONS CURRENT MEDICATIONS Current Medications Medications (Trade) Dose Ordered Sig/Ayush Route PRN Reason Start Time Stop Time Status Last Admin Dose Admin Furosemide (Lasix) 60 mg 1X ONCE IVP 10/28/18 19:15 10/28/18 19:16 DC 10/28/18 19:31 Iohexol (Omnipaque 350 Mg/ml) 100 ml 1X ONCE IV 10/28/18 21:15 10/28/18 21:16 DC 10/28/18 21:15 Hydralazine HCl (Apresoline Inj) 10 mg 1X ONCE IVP 10/29/18 00:30 10/29/18 00:31 DC 10/29/18 00:32 ALLERGIES ALLERGIES: Coded Allergies: No Known Drug Allergies (Unverified , 01/19/18) ROS Review of System 14 point ROS evaluated with pertinent positives noted per HPI PHYSICAL EXAM General: Alert, Oriented X3, Cooperative, mild distress HEENT: Atraumatic, Mucous membr. moist/pink Lungs: Other (basilar crackles) Heart: Regular rate, Other (distant heart sounds due to body habitus) Abdomen: Soft, Other (anasarca) Extremities: No cyanosis, Other (3-4+ bilateral Le pitting edema) Skin: Other (venous dermatitis) Neuro: Normal speech, Sensation intact Psych/Mental Status: Mood NL MUSCULOSKELETAL: Osteoarthritic changes both hands VITALS VITALS Vital Signs Date Time Temp Pulse Resp B/P (MAP) Pulse Ox O2 Delivery O2 Flow Rate FiO2 10/29/18 07:00 98.8 101 20 104/76 (85) 96 NonRebreather Mask 98.8 10/29/18 00:24 4.0 LABS Lab: Laboratory Tests Test 10/28/18 19:05 10/28/18 20:07 10/29/18 01:10 10/29/18 03:50 White Blood Count 7.0 x10^3/uL (4.0-11.0) 7.5 x10^3/uL (4.0-11.0) Red Blood Count 4.86 x10^6/uL (4.30-5.70) 4.71 x10^6/uL (4.30-5.70) Hemoglobin 13.2 g/dL (13.0-17.5) 12.8 g/dL (13.0-17.5) Hematocrit 42.0 % (39.0-53.0) 40.7 % (39.0-53.0) Mean Corpuscular Volume 86 fL (79-100) 86 fL (79-100) Mean Corpuscular Hemoglobin 27 pg (25-35) 27 pg (25-35) Mean Corpuscular Hemoglobin Concent 31 g/dL (31-37) 31 g/dL (31-37) Red Cell Distribution Width 16.9 % (11.5-14.5) 16.5 % (11.5-14.5) Platelet Count 279 x10^3/uL (140-400) 272 x10^3/uL (140-400) Neutrophils (%) (Auto) 62 % (31-73) 62 % (31-73) Lymphocytes (%) (Auto) 17 % (24-48) 15 % (24-48) Monocytes (%) (Auto) 21 % (0-9) 21 % (0-9) Eosinophils (%) (Auto) 1 % (0-3) 1 % (0-3) Basophils (%) (Auto) 1 % (0-3) 1 % (0-3) Neutrophils # (Auto) 4.3 x10^3uL (1.8-7.7) 4.7 x10^3uL (1.8-7.7) Lymphocytes # (Auto) 1.2 x10^3/uL (1.0-4.8) 1.1 x10^3/uL (1.0-4.8) Monocytes # (Auto) 1.4 x10^3/uL (0.0-1.1) 1.6 x10^3/uL (0.0-1.1) Eosinophils # (Auto) 0.0 x10^3/uL (0.0-0.7) 0.1 x10^3/uL (0.0-0.7) Basophils # (Auto) 0.0 x10^3/uL (0.0-0.2) 0.1 x10^3/uL (0.0-0.2) Segmented Neutrophils % 58 % (35-66) Band Neutrophils % 2 % (0-9) Lymphocytes % 22 % (24-48) Monocytes % 15 % (0-10) Eosinophils % 2 % (0-5) Basophils % 1 % (0-3) Platelet Estimate Adequate (ADEQUATE) Polychromasia Slight D-Dimer (Melva) 5.30 ug/mlFEU (0.00-0.50) Sodium Level 141 mmol/L (136-145) 140 mmol/L (136-145) Potassium Level 5.2 mmol/L (3.5-5.1) 4.5 mmol/L (3.5-5.1) Chloride Level 100 mmol/L (98-107) 101 mmol/L (98-107) Carbon Dioxide Level 35 mmol/L (21-32) 37 mmol/L (21-32) Anion Gap 6 (6-14) 2 (6-14) Blood Urea Nitrogen 44 mg/dL (8-26) 39 mg/dL (8-26) Creatinine 1.4 mg/dL (0.7-1.3) 1.2 mg/dL (0.7-1.3) Estimated GFR (Cockcroft-Gault) 62.8 75.0 BUN/Creatinine Ratio 31 (6-20) 33 (6-20) Glucose Level 65 mg/dL (70-99) 84 mg/dL (70-99) Calcium Level 9.3 mg/dL (8.5-10.1) 9.3 mg/dL (8.5-10.1) Total Bilirubin 1.3 mg/dL (0.2-1.0) 1.3 mg/dL (0.2-1.0) Aspartate Amino Transf (AST/SGOT) 34 U/L (15-37) 31 U/L (15-37) Alanine Aminotransferase (ALT/SGPT) 44 U/L (16-63) 45 U/L (16-63) Alkaline Phosphatase 76 U/L (46-116) 73 U/L (46-116) Troponin I Quantitative < 0.017 ng/mL (0.000-0.055) < 0.017 ng/mL (0.000-0.055) < 0.017 ng/mL (0.000-0.055) JB-Qrn-K-Type Natriuretic Peptide 5329 pg/mL (0-124) Total Protein 7.2 g/dL (6.4-8.2) 7.2 g/dL (6.4-8.2) Albumin 3.0 g/dL (3.4-5.0) 3.0 g/dL (3.4-5.0) Albumin/Globulin Ratio 0.7 (1.0-1.7) 0.7 (1.0-1.7) Urine Collection Type Unknown Urine Color Yellow Urine Clarity Clear Urine pH 5.5 Urine Specific [place] 1.010 Urine Protein Negative mg/dL (NEG-TRACE) Urine Glucose (UA) Negative mg/dL (NEG) Urine Ketones (Stick) Negative mg/dL (NEG) Urine Blood Negative (NEG) Urine Nitrite Negative (NEG) Urine Bilirubin Negative (NEG) Urine Urobilinogen Dipstick 2.0 mg/dL (0.2 mg/dL) Urine Leukocyte Esterase Negative (NEG) Urine RBC 0 /HPF (0-2) Urine WBC 1-4 /HPF (0-4) Urine Squamous Epithelial Cells Mod /LPF Urine Bacteria 0 /HPF (0-FEW) Urine Hyaline Casts Many /HPF Urine Mucus Mod /LPF Magnesium Level 2.1 mg/dL (1.8-2.4) Triglycerides Level 92 mg/dL (0-150) Cholesterol Level 118 mg/dL (0-200) LDL Cholesterol, Calculated 73 mg/dL (0-100) VLDL Cholesterol, Calculated 18 mg/dL (0-40) Non-HDL Cholesterol Calculated 91 mg/dL (0-129) HDL Cholesterol 27 mg/dL (40-60) Cholesterol/HDL Ratio 4.4 Thyroid Stimulating Hormone (TSH) 3.630 uIU/mL (0.358-3.74) Test 10/29/18 07:14 Glucose (Fingerstick) 122 mg/dL (70-99) ASSESSMENT/PLAN ASSESSMENT/PLAN 1. Acute on chronic likely diastolic dysfunction: possibly induced by uncontrolled HTN and FLAKITO. 2. Accelerated HTN: improved. 3. DM2 4. Morbid obesity with likely FLAKITO Recommendations 1. TTE, TSH, lipids, UDS, A1C 2. Will need outpt FLAKITO workup. 3. Lasix therapy. Continue with secondary prevention. May need bipap await ABG. 4. May restart BP_ regimen pending BP trend. BRISA PEDROZA PRIMARY HEALTH CARE NURSE October 29, 2018 11:08
[2018-10-29 11:33] LABS: BASE EXCESS ABG 9 mmol/L (-3-3); HCO3 ABG 41 mmol/L (21-28)
[2018-10-29] MEDS: FUROSEMIDE 40 MG/4 ML VIAL. IVP SCH ×2 (12:56→17:30)
--- NOTE | 2018-10-29 13:28 | NUR ---
SS following for discharge planning. SS reviewed pt chart. Pt is from home with spouse and is currently requiring oxygen. No discharge needs noted at this time. SS will continue to follow for discharge planning.
--- NOTE | 2018-10-29 13:30 | PDOC ---
PULMONARY PROGRESS NOTES Vitals Vital Signs Date Time Temp Pulse Resp B/P (MAP) Pulse Ox O2 Delivery O2 Flow Rate FiO2 10/29/18 11:25 21 Room Air 10/29/18 11:00 98.6 102 20 114/70 (85) 98.6 10/29/18 00:24 4.0 Labs Laboratory Tests Test 10/28/18 19:05 10/28/18 20:07 10/29/18 01:10 10/29/18 03:50 White Blood Count 7.0 x10^3/uL (4.0-11.0) 7.5 x10^3/uL (4.0-11.0) Red Blood Count 4.86 x10^6/uL (4.30-5.70) 4.71 x10^6/uL (4.30-5.70) Hemoglobin 13.2 g/dL (13.0-17.5) 12.8 g/dL (13.0-17.5) Hematocrit 42.0 % (39.0-53.0) 40.7 % (39.0-53.0) Mean Corpuscular Volume 86 fL (79-100) 86 fL (79-100) Mean Corpuscular Hemoglobin 27 pg (25-35) 27 pg (25-35) Mean Corpuscular Hemoglobin Concent 31 g/dL (31-37) 31 g/dL (31-37) Red Cell Distribution Width 16.9 % (11.5-14.5) 16.5 % (11.5-14.5) Platelet Count 279 x10^3/uL (140-400) 272 x10^3/uL (140-400) Neutrophils (%) (Auto) 62 % (31-73) 62 % (31-73) Lymphocytes (%) (Auto) 17 % (24-48) 15 % (24-48) Monocytes (%) (Auto) 21 % (0-9) 21 % (0-9) Eosinophils (%) (Auto) 1 % (0-3) 1 % (0-3) Basophils (%) (Auto) 1 % (0-3) 1 % (0-3) Neutrophils # (Auto) 4.3 x10^3uL (1.8-7.7) 4.7 x10^3uL (1.8-7.7) Lymphocytes # (Auto) 1.2 x10^3/uL (1.0-4.8) 1.1 x10^3/uL (1.0-4.8) Monocytes # (Auto) 1.4 x10^3/uL (0.0-1.1) 1.6 x10^3/uL (0.0-1.1) Eosinophils # (Auto) 0.0 x10^3/uL (0.0-0.7) 0.1 x10^3/uL (0.0-0.7) Basophils # (Auto) 0.0 x10^3/uL (0.0-0.2) 0.1 x10^3/uL (0.0-0.2) Segmented Neutrophils % 58 % (35-66) Band Neutrophils % 2 % (0-9) Lymphocytes % 22 % (24-48) Monocytes % 15 % (0-10) Eosinophils % 2 % (0-5) Basophils % 1 % (0-3) Platelet Estimate Adequate (ADEQUATE) Polychromasia Slight D-Dimer (Melva) 5.30 ug/mlFEU (0.00-0.50) Sodium Level 141 mmol/L (136-145) 140 mmol/L (136-145) Potassium Level 5.2 mmol/L (3.5-5.1) 4.5 mmol/L (3.5-5.1) Chloride Level 100 mmol/L (98-107) 101 mmol/L (98-107) Carbon Dioxide Level 35 mmol/L (21-32) 37 mmol/L (21-32) Anion Gap 6 (6-14) 2 (6-14) Blood Urea Nitrogen 44 mg/dL (8-26) 39 mg/dL (8-26) Creatinine 1.4 mg/dL (0.7-1.3) 1.2 mg/dL (0.7-1.3) Estimated GFR (Cockcroft-Gault) 62.8 75.0 BUN/Creatinine Ratio 31 (6-20) 33 (6-20) Glucose Level 65 mg/dL (70-99) 84 mg/dL (70-99) Calcium Level 9.3 mg/dL (8.5-10.1) 9.3 mg/dL (8.5-10.1) Total Bilirubin 1.3 mg/dL (0.2-1.0) 1.3 mg/dL (0.2-1.0) Aspartate Amino Transf (AST/SGOT) 34 U/L (15-37) 31 U/L (15-37) Alanine Aminotransferase (ALT/SGPT) 44 U/L (16-63) 45 U/L (16-63) Alkaline Phosphatase 76 U/L (46-116) 73 U/L (46-116) Troponin I Quantitative < 0.017 ng/mL (0.000-0.055) < 0.017 ng/mL (0.000-0.055) < 0.017 ng/mL (0.000-0.055) IG-Vjd-G-Type Natriuretic Peptide 5329 pg/mL (0-124) Total Protein 7.2 g/dL (6.4-8.2) 7.2 g/dL (6.4-8.2) Albumin 3.0 g/dL (3.4-5.0) 3.0 g/dL (3.4-5.0) Albumin/Globulin Ratio 0.7 (1.0-1.7) 0.7 (1.0-1.7) Urine Collection Type Unknown Urine Color Yellow Urine Clarity Clear Urine pH 5.5 Urine Specific [place] 1.010 Urine Protein Negative mg/dL (NEG-TRACE) Urine Glucose (UA) Negative mg/dL (NEG) Urine Ketones (Stick) Negative mg/dL (NEG) Urine Blood Negative (NEG) Urine Nitrite Negative (NEG) Urine Bilirubin Negative (NEG) Urine Urobilinogen Dipstick 2.0 mg/dL (0.2 mg/dL) Urine Leukocyte Esterase Negative (NEG) Urine RBC 0 /HPF (0-2) Urine WBC 1-4 /HPF (0-4) Urine Squamous Epithelial Cells Mod /LPF Urine Bacteria 0 /HPF (0-FEW) Urine Hyaline Casts Many /HPF Urine Mucus Mod /LPF Magnesium Level 2.1 mg/dL (1.8-2.4) Triglycerides Level 92 mg/dL (0-150) Cholesterol Level 118 mg/dL (0-200) LDL Cholesterol, Calculated 73 mg/dL (0-100) VLDL Cholesterol, Calculated 18 mg/dL (0-40) Non-HDL Cholesterol Calculated 91 mg/dL (0-129) HDL Cholesterol 27 mg/dL (40-60) Cholesterol/HDL Ratio 4.4 Thyroid Stimulating Hormone (TSH) 3.630 uIU/mL (0.358-3.74) Test 10/29/18 07:14 Glucose (Fingerstick) 122 mg/dL (70-99) Laboratory Tests Test 10/28/18 19:05 10/28/18 20:07 10/29/18 01:10 10/29/18 03:50 White Blood Count 7.0 x10^3/uL (4.0-11.0) 7.5 x10^3/uL (4.0-11.0) Red Blood Count 4.86 x10^6/uL (4.30-5.70) 4.71 x10^6/uL (4.30-5.70) Hemoglobin 13.2 g/dL (13.0-17.5) 12.8 g/dL (13.0-17.5) Hematocrit 42.0 % (39.0-53.0) 40.7 % (39.0-53.0) Mean Corpuscular Volume 86 fL (79-100) 86 fL (79-100) Mean Corpuscular Hemoglobin 27 pg (25-35) 27 pg (25-35) Mean Corpuscular Hemoglobin Concent 31 g/dL (31-37) 31 g/dL (31-37) Red Cell Distribution Width 16.9 % (11.5-14.5) 16.5 % (11.5-14.5) Platelet Count 279 x10^3/uL (140-400) 272 x10^3/uL (140-400) Neutrophils (%) (Auto) 62 % (31-73) 62 % (31-73) Lymphocytes (%) (Auto) 17 % (24-48) 15 % (24-48) Monocytes (%) (Auto) 21 % (0-9) 21 % (0-9) Eosinophils (%) (Auto) 1 % (0-3) 1 % (0-3) Basophils (%) (Auto) 1 % (0-3) 1 % (0-3) Neutrophils # (Auto) 4.3 x10^3uL (1.8-7.7) 4.7 x10^3uL (1.8-7.7) Lymphocytes # (Auto) 1.2 x10^3/uL (1.0-4.8) 1.1 x10^3/uL (1.0-4.8) Monocytes # (Auto) 1.4 x10^3/uL (0.0-1.1) 1.6 x10^3/uL (0.0-1.1) Eosinophils # (Auto) 0.0 x10^3/uL (0.0-0.7) 0.1 x10^3/uL (0.0-0.7) Basophils # (Auto) 0.0 x10^3/uL (0.0-0.2) 0.1 x10^3/uL (0.0-0.2) Segmented Neutrophils % 58 % (35-66) Band Neutrophils % 2 % (0-9) Lymphocytes % 22 % (24-48) Monocytes % 15 % (0-10) Eosinophils % 2 % (0-5) Basophils % 1 % (0-3) Platelet Estimate Adequate (ADEQUATE) Polychromasia Slight D-Dimer (Melva) 5.30 ug/mlFEU (0.00-0.50) Sodium Level 141 mmol/L (136-145) 140 mmol/L (136-145) Potassium Level 5.2 mmol/L (3.5-5.1) 4.5 mmol/L (3.5-5.1) Chloride Level 100 mmol/L (98-107) 101 mmol/L (98-107) Carbon Dioxide Level 35 mmol/L (21-32) 37 mmol/L (21-32) Anion Gap 6 (6-14) 2 (6-14) Blood Urea Nitrogen 44 mg/dL (8-26) 39 mg/dL (8-26) Creatinine 1.4 mg/dL (0.7-1.3) 1.2 mg/dL (0.7-1.3) Estimated GFR (Cockcroft-Gault) 62.8 75.0 BUN/Creatinine Ratio 31 (6-20) 33 (6-20) Glucose Level 65 mg/dL (70-99) 84 mg/dL (70-99) Calcium Level 9.3 mg/dL (8.5-10.1) 9.3 mg/dL (8.5-10.1) Total Bilirubin 1.3 mg/dL (0.2-1.0) 1.3 mg/dL (0.2-1.0) Aspartate Amino Transf (AST/SGOT) 34 U/L (15-37) 31 U/L (15-37) Alanine Aminotransferase (ALT/SGPT) 44 U/L (16-63) 45 U/L (16-63) Alkaline Phosphatase 76 U/L (46-116) 73 U/L (46-116) Troponin I Quantitative < 0.017 ng/mL (0.000-0.055) < 0.017 ng/mL (0.000-0.055) < 0.017 ng/mL (0.000-0.055) XW-Gco-W-Type Natriuretic Peptide 5329 pg/mL (0-124) Total Protein 7.2 g/dL (6.4-8.2) 7.2 g/dL (6.4-8.2) Albumin 3.0 g/dL (3.4-5.0) 3.0 g/dL (3.4-5.0) Albumin/Globulin Ratio 0.7 (1.0-1.7) 0.7 (1.0-1.7) Urine Collection Type Unknown Urine Color Yellow Urine Clarity Clear Urine pH 5.5 Urine Specific [place] 1.010 Urine Protein Negative mg/dL (NEG-TRACE) Urine Glucose (UA) Negative mg/dL (NEG) Urine Ketones (Stick) Negative mg/dL (NEG) Urine Blood Negative (NEG) Urine Nitrite Negative (NEG) Urine Bilirubin Negative (NEG) Urine Urobilinogen Dipstick 2.0 mg/dL (0.2 mg/dL) Urine Leukocyte Esterase Negative (NEG) Urine RBC 0 /HPF (0-2) Urine WBC 1-4 /HPF (0-4) Urine Squamous Epithelial Cells Mod /LPF Urine Bacteria 0 /HPF (0-FEW) Urine Hyaline Casts Many /HPF Urine Mucus Mod /LPF Magnesium Level 2.1 mg/dL (1.8-2.4) Triglycerides Level 92 mg/dL (0-150) Cholesterol Level 118 mg/dL (0-200) LDL Cholesterol, Calculated 73 mg/dL (0-100) VLDL Cholesterol, Calculated 18 mg/dL (0-40) Non-HDL Cholesterol Calculated 91 mg/dL (0-129) HDL Cholesterol 27 mg/dL (40-60) Cholesterol/HDL Ratio 4.4 Thyroid Stimulating Hormone (TSH) 3.630 uIU/mL (0.358-3.74) Test 10/29/18 07:14 Glucose (Fingerstick) 122 mg/dL (70-99) Medications Active Scripts Medications Dose Route/Sig Max Daily Dose Days Date Category Amlodipine Besylate 5 Mg Tablet 5 Mg PO DAILY 10/29/18 Reported Metformin Hcl Er (Metformin Hcl) 500 Mg Tab.er.24h 500 Mg PO DAILYWBKFT 10/29/18 Reported Lisinopril-Hctz 20-12.5 Mg Tab (Lisinopril/Hydrochlorothiazide) 1 Each Tablet 1 Tab PO DAILY 10/29/18 Reported Amaryl (Glimepiride) 1 Mg Tablet 2 Tab PO DAILY 10/29/18 Reported Furosemide 40 Mg Tablet 40 Mg PO DAILY 10/29/18 Reported Potassium Chloride 20 Meq Tablet.er 20 Meq PO DAILY 10/29/18 Reported Metformin Hcl Er (Metformin Hcl) 500 Mg Tab.er.24h 500 Mg PO BIDWMEALS 11/29/17 Rx Lisinopril 5 Mg Tablet 1 Tab PO DAILY 11/29/17 Rx Norvasc (Amlodipine Besylate) 2.5 Mg Tablet 1 Tab PO DAILY 11/29/17 Rx Impression . NOTE DICTATED D/W RT BIPAP DIURESE PER JACQUELIN BAKER MD October 29, 2018 13:30
[2018-10-29 14:05] LABS: PCO2 ABG 98 mmHg (35-46); PO2 ABG < 42 mmHg (65-108); SAT O2 ABG 59 % (92-99)
[2018-10-29 14:07] LABS: FIO2 ABG 21
--- NOTE | 2018-10-29 14:44 | PDOC1 ---
History and Physical Date of Admission Date of Admission DATE: 10/29/18 TIME: 14:31 Identification/Chief Complaint Chief Complaint sob Problems: (1) CHF (congestive heart failure) Source Source: Chart review, Patient History of Present Illness History of Present Illness 58 year old reports sob since 5-6 days especially while walking. more sob while laying flat. no chest pain, nausea vomiting. no prior cardiac hx, dvt or PE. known diabetic and HTN. reports non-compliance with meds. does not check BP or sugars. no other complaints. denies hx of CHF or COPD. no prior hx of FLAKITO. CT chest done showin. Suboptimal PE study due to contrast bolus timing and breathing motion artifact. No central embolus. Laceration of segmental and subsegmental pulmonary arteries is limited. 2. Small to moderate volume right pleural effusion with consolidation in the right lung base which may be secondary to passive atelectasis from adjacent pleural effusion or pneumonia. 3. Small volume perihepatic ascites, nonspecific. bnp>5k. negative troponins. hospitalist called for admission. Past Medical History Cardiovascular: HTN, Hyperlipidemia Pulmonary: No pertinent hx CENTRAL NERVOUS SYSTEM: Other (No pertinent history) GI: No pertinent hx Heme/Onc: No pertinent hx Hepatobiliary: No pertinent hx Psych: No pertinent hx Musculoskeletal: Osteoarthritis Rheumatologic: No pertinent hx Infectious disease: No pertinent hx ENT: No pertinent hx Renal/: UTI, Other (phimoes, urinary retention) Endocrine: Diabetes (2) Dermatology: No pertinent hx Past Surgical History Past Surgical History: Total knee replacement (left knee) Family History Family History DM Social History Smoke: No ALCOHOL: none Drugs: None Current Problem List Problem List Problems Medical Problems: (1) CHF (congestive heart failure) Status: Acute (2) Hypoxemia Status: Acute Current Medications Current Medications Current Medications Furosemide (Lasix) 60 mg 1X ONCE IVP Last administered on 10/28/18at 19:31; Start 10/28/18 at 19:15; Stop 10/28/18 at 19:16; Status DC Iohexol (Omnipaque 350 Mg/ml) 100 ml 1X ONCE IV Last administered on 10/28/18at 21:15; Start 10/28/18 at 21:15; Stop 10/28/18 at 21:16; Status DC Info (CONTRAST GIVEN -- Rx MONITORING) 1 each PRN DAILY PRN MC SEE COMMENTS; Start 10/28/18 at 21:15; Stop 10/30/18 at 21:14 Ondansetron HCl (Zofran) 4 mg PRN Q8HRS PRN IV NAUSEA/VOMITING 1ST CHOICE; Start 10/28/18 at 22:15; Stop 10/29/18 at 22:14 Morphine Sulfate (Morphine Sulfate) 2 mg PRN Q2HR PRN IV SEVERE PAIN; Start 10/28/18 at 22:15; Stop 10/29/18 at 22:14 Acetaminophen (Tylenol) 650 mg PRN Q4HRS PRN PO FEVER; Start 10/28/18 at 22:15; Stop 10/29/18 at 22:14 Hydralazine HCl (Apresoline Inj) 10 mg 1X ONCE IVP Last administered on 10/29/18at 00:32; Start 10/29/18 at 00:30; Stop 10/29/18 at 00:31; Status DC Perflutren Protein Type A Microsphe (Optison) 0.66 mg STK-MED ONCE IV ; Start 10/29/18 at 10:54; Stop 10/29/18 at 10:55; Status DC Furosemide (Lasix) 40 mg BID92 IVP Last administered on 10/29/18at 12:56; Start 10/29/18 at 11:00 Glimepiride (Amaryl) 2 mg DAILY08 PO ; Start 10/29/18 at 17:00 Metformin HCl (Glucophage Xr) 500 mg DAILYWBKFT PO ; Start 11/01/18 at 08:00 Active Scripts Active Metformin Hcl Er (Metformin Hcl) 500 Mg Tab.er.24h 500 Mg PO BIDWMEALS Lisinopril 5 Mg Tablet 1 Tab PO DAILY Norvasc (Amlodipine Besylate) 2.5 Mg Tablet 1 Tab PO DAILY Reported Amlodipine Besylate 5 Mg Tablet 5 Mg PO DAILY Metformin Hcl Er (Metformin Hcl) 500 Mg Tab.er.24h 500 Mg PO DAILYWBKFT Lisinopril-Hctz 20-12.5 Mg Tab (Lisinopril/Hydrochlorothiazide) 1 Each Tablet 1 Tab PO DAILY Amaryl (Glimepiride) 1 Mg Tablet 2 Tab PO DAILY Furosemide 40 Mg Tablet 40 Mg PO DAILY Potassium Chloride 20 Meq Tablet.er 20 Meq PO DAILY Allergies Allergies: Coded Allergies: No Known Drug Allergies (Unverified , 01/19/18) ROS Review of System CONSTITUTIONAL: No fever or chills EYES: No recent changes SKIN: No rash or itching CARDIOVASCULAR: No chest pain, syncope, palpitations, or edema RESPIRATORY: No SOB or cough GASTROINTESTINAL: No nausea, vomiting or abdominal pain NEUROLOGICAL: No headaches or weakness ENDOCRINE: No cold or heat intolerance GENITOURINARY: No urgency or frequency of urination MUSCULOSKELETAL: No back pain or joint pain LYMPHATICS: No enlarged lymph nodes PSYCHIATRIC: No anxiety or depression Physical Exam Physical Exam GENERAL: No apparent distress. Alert and oriented, obese HEENT: Head normocephalic, atraumatic. NECK: Supple LUNGS: Clear to auscultation. HEART: RRR, S1, S2 present, pulses intact ABDOMEN: Soft, positive bowel sounds. EXTREMITIES: b/l le swelling NEUROLOGIC: Normal speech, normal tone PSYCHIATRIC: Normal affect, normal mood. SKIN: No ulceration. Vitals Vitals Vital Signs Date Time Temp Pulse Resp B/P (MAP) Pulse Ox O2 Delivery O2 Flow Rate FiO2 10/29/18 11:25 21 Room Air 10/29/18 11:00 98.6 102 20 114/70 (85) 98.6 10/29/18 00:24 4.0 Labs Labs Laboratory Tests Test 10/28/18 19:05 10/28/18 20:07 10/29/18 01:10 10/29/18 03:50 White Blood Count 7.0 x10^3/uL (4.0-11.0) 7.5 x10^3/uL (4.0-11.0) Red Blood Count 4.86 x10^6/uL (4.30-5.70) 4.71 x10^6/uL (4.30-5.70) Hemoglobin 13.2 g/dL (13.0-17.5) 12.8 g/dL (13.0-17.5) Hematocrit 42.0 % (39.0-53.0) 40.7 % (39.0-53.0) Mean Corpuscular Volume 86 fL (79-100) 86 fL (79-100) Mean Corpuscular Hemoglobin 27 pg (25-35) 27 pg (25-35) Mean Corpuscular Hemoglobin Concent 31 g/dL (31-37) 31 g/dL (31-37) Red Cell Distribution Width 16.9 % (11.5-14.5) 16.5 % (11.5-14.5) Platelet Count 279 x10^3/uL (140-400) 272 x10^3/uL (140-400) Neutrophils (%) (Auto) 62 % (31-73) 62 % (31-73) Lymphocytes (%) (Auto) 17 % (24-48) 15 % (24-48) Monocytes (%) (Auto) 21 % (0-9) 21 % (0-9) Eosinophils (%) (Auto) 1 % (0-3) 1 % (0-3) Basophils (%) (Auto) 1 % (0-3) 1 % (0-3) Neutrophils # (Auto) 4.3 x10^3uL (1.8-7.7) 4.7 x10^3uL (1.8-7.7) Lymphocytes # (Auto) 1.2 x10^3/uL (1.0-4.8) 1.1 x10^3/uL (1.0-4.8) Monocytes # (Auto) 1.4 x10^3/uL (0.0-1.1) 1.6 x10^3/uL (0.0-1.1) Eosinophils # (Auto) 0.0 x10^3/uL (0.0-0.7) 0.1 x10^3/uL (0.0-0.7) Basophils # (Auto) 0.0 x10^3/uL (0.0-0.2) 0.1 x10^3/uL (0.0-0.2) Segmented Neutrophils % 58 % (35-66) Band Neutrophils % 2 % (0-9) Lymphocytes % 22 % (24-48) Monocytes % 15 % (0-10) Eosinophils % 2 % (0-5) Basophils % 1 % (0-3) Platelet Estimate Adequate (ADEQUATE) Polychromasia Slight D-Dimer (Melva) 5.30 ug/mlFEU (0.00-0.50) Sodium Level 141 mmol/L (136-145) 140 mmol/L (136-145) Potassium Level 5.2 mmol/L (3.5-5.1) 4.5 mmol/L (3.5-5.1) Chloride Level 100 mmol/L (98-107) 101 mmol/L (98-107) Carbon Dioxide Level 35 mmol/L (21-32) 37 mmol/L (21-32) Anion Gap 6 (6-14) 2 (6-14) Blood Urea Nitrogen 44 mg/dL (8-26) 39 mg/dL (8-26) Creatinine 1.4 mg/dL (0.7-1.3) 1.2 mg/dL (0.7-1.3) Estimated GFR (Cockcroft-Gault) 62.8 75.0 BUN/Creatinine Ratio 31 (6-20) 33 (6-20) Glucose Level 65 mg/dL (70-99) 84 mg/dL (70-99) Calcium Level 9.3 mg/dL (8.5-10.1) 9.3 mg/dL (8.5-10.1) Total Bilirubin 1.3 mg/dL (0.2-1.0) 1.3 mg/dL (0.2-1.0) Aspartate Amino Transf (AST/SGOT) 34 U/L (15-37) 31 U/L (15-37) Alanine Aminotransferase (ALT/SGPT) 44 U/L (16-63) 45 U/L (16-63) Alkaline Phosphatase 76 U/L (46-116) 73 U/L (46-116) Troponin I Quantitative < 0.017 ng/mL (0.000-0.055) < 0.017 ng/mL (0.000-0.055) < 0.017 ng/mL (0.000-0.055) JU-Hdo-M-Type Natriuretic Peptide 5329 pg/mL (0-124) Total Protein 7.2 g/dL (6.4-8.2) 7.2 g/dL (6.4-8.2) Albumin 3.0 g/dL (3.4-5.0) 3.0 g/dL (3.4-5.0) Albumin/Globulin Ratio 0.7 (1.0-1.7) 0.7 (1.0-1.7) Urine Collection Type Unknown Urine Color Yellow Urine Clarity Clear Urine pH 5.5 Urine Specific [place] 1.010 Urine Protein Negative mg/dL (NEG-TRACE) Urine Glucose (UA) Negative mg/dL (NEG) Urine Ketones (Stick) Negative mg/dL (NEG) Urine Blood Negative (NEG) Urine Nitrite Negative (NEG) Urine Bilirubin Negative (NEG) Urine Urobilinogen Dipstick 2.0 mg/dL (0.2 mg/dL) Urine Leukocyte Esterase Negative (NEG) Urine RBC 0 /HPF (0-2) Urine WBC 1-4 /HPF (0-4) Urine Squamous Epithelial Cells Mod /LPF Urine Bacteria 0 /HPF (0-FEW) Urine Hyaline Casts Many /HPF Urine Mucus Mod /LPF Magnesium Level 2.1 mg/dL (1.8-2.4) Triglycerides Level 92 mg/dL (0-150) Cholesterol Level 118 mg/dL (0-200) LDL Cholesterol, Calculated 73 mg/dL (0-100) VLDL Cholesterol, Calculated 18 mg/dL (0-40) Non-HDL Cholesterol Calculated 91 mg/dL (0-129) HDL Cholesterol 27 mg/dL (40-60) Cholesterol/HDL Ratio 4.4 Thyroid Stimulating Hormone (TSH) 3.630 uIU/mL (0.358-3.74) Test 10/29/18 07:14 10/29/18 10:55 Glucose (Fingerstick) 122 mg/dL (70-99) O2 Saturation 59 % (92-99) Arterial Blood pH 7.24 (7.35-7.45) Arterial Blood pCO2 at Patient Temp 98 mmHg (35-46) Arterial Blood pO2 at Patient Temp < 42 mmHg (65-108) Arterial Blood HCO3 41 mmol/L (21-28) Arterial Blood Base Excess 9 mmol/L (-3-3) FiO2 21 Laboratory Tests Test 10/28/18 19:05 10/28/18 20:07 10/29/18 01:10 10/29/18 03:50 White Blood Count 7.0 x10^3/uL (4.0-11.0) 7.5 x10^3/uL (4.0-11.0) Red Blood Count 4.86 x10^6/uL (4.30-5.70) 4.71 x10^6/uL (4.30-5.70) Hemoglobin 13.2 g/dL (13.0-17.5) 12.8 g/dL (13.0-17.5) Hematocrit 42.0 % (39.0-53.0) 40.7 % (39.0-53.0) Mean Corpuscular Volume 86 fL (79-100) 86 fL (79-100) Mean Corpuscular Hemoglobin 27 pg (25-35) 27 pg (25-35) Mean Corpuscular Hemoglobin Concent 31 g/dL (31-37) 31 g/dL (31-37) Red Cell Distribution Width 16.9 % (11.5-14.5) 16.5 % (11.5-14.5) Platelet Count 279 x10^3/uL (140-400) 272 x10^3/uL (140-400) Neutrophils (%) (Auto) 62 % (31-73) 62 % (31-73) Lymphocytes (%) (Auto) 17 % (24-48) 15 % (24-48) Monocytes (%) (Auto) 21 % (0-9) 21 % (0-9) Eosinophils (%) (Auto) 1 % (0-3) 1 % (0-3) Basophils (%) (Auto) 1 % (0-3) 1 % (0-3) Neutrophils # (Auto) 4.3 x10^3uL (1.8-7.7) 4.7 x10^3uL (1.8-7.7) Lymphocytes # (Auto) 1.2 x10^3/uL (1.0-4.8) 1.1 x10^3/uL (1.0-4.8) Monocytes # (Auto) 1.4 x10^3/uL (0.0-1.1) 1.6 x10^3/uL (0.0-1.1) Eosinophils # (Auto) 0.0 x10^3/uL (0.0-0.7) 0.1 x10^3/uL (0.0-0.7) Basophils # (Auto) 0.0 x10^3/uL (0.0-0.2) 0.1 x10^3/uL (0.0-0.2) Segmented Neutrophils % 58 % (35-66) Band Neutrophils % 2 % (0-9) Lymphocytes % 22 % (24-48) Monocytes % 15 % (0-10) Eosinophils % 2 % (0-5) Basophils % 1 % (0-3) Platelet Estimate Adequate (ADEQUATE) Polychromasia Slight D-Dimer (Melva) 5.30 ug/mlFEU (0.00-0.50) Sodium Level 141 mmol/L (136-145) 140 mmol/L (136-145) Potassium Level 5.2 mmol/L (3.5-5.1) 4.5 mmol/L (3.5-5.1) Chloride Level 100 mmol/L (98-107) 101 mmol/L (98-107) Carbon Dioxide Level 35 mmol/L (21-32) 37 mmol/L (21-32) Anion Gap 6 (6-14) 2 (6-14) Blood Urea Nitrogen 44 mg/dL (8-26) 39 mg/dL (8-26) Creatinine 1.4 mg/dL (0.7-1.3) 1.2 mg/dL (0.7-1.3) Estimated GFR (Cockcroft-Gault) 62.8 75.0 BUN/Creatinine Ratio 31 (6-20) 33 (6-20) Glucose Level 65 mg/dL (70-99) 84 mg/dL (70-99) Calcium Level 9.3 mg/dL (8.5-10.1) 9.3 mg/dL (8.5-10.1) Total Bilirubin 1.3 mg/dL (0.2-1.0) 1.3 mg/dL (0.2-1.0) Aspartate Amino Transf (AST/SGOT) 34 U/L (15-37) 31 U/L (15-37) Alanine Aminotransferase (ALT/SGPT) 44 U/L (16-63) 45 U/L (16-63) Alkaline Phosphatase 76 U/L (46-116) 73 U/L (46-116) Troponin I Quantitative < 0.017 ng/mL (0.000-0.055) < 0.017 ng/mL (0.000-0.055) < 0.017 ng/mL (0.000-0.055) HO-Bpx-N-Type Natriuretic Peptide 5329 pg/mL (0-124) Total Protein 7.2 g/dL (6.4-8.2) 7.2 g/dL (6.4-8.2) Albumin 3.0 g/dL (3.4-5.0) 3.0 g/dL (3.4-5.0) Albumin/Globulin Ratio 0.7 (1.0-1.7) 0.7 (1.0-1.7) Urine Collection Type Unknown Urine Color Yellow Urine Clarity Clear Urine pH 5.5 Urine Specific [place] 1.010 Urine Protein Negative mg/dL (NEG-TRACE) Urine Glucose (UA) Negative mg/dL (NEG) Urine Ketones (Stick) Negative mg/dL (NEG) Urine Blood Negative (NEG) Urine Nitrite Negative (NEG) Urine Bilirubin Negative (NEG) Urine Urobilinogen Dipstick 2.0 mg/dL (0.2 mg/dL) Urine Leukocyte Esterase Negative (NEG) Urine RBC 0 /HPF (0-2) Urine WBC 1-4 /HPF (0-4) Urine Squamous Epithelial Cells Mod /LPF Urine Bacteria 0 /HPF (0-FEW) Urine Hyaline Casts Many /HPF Urine Mucus Mod /LPF Magnesium Level 2.1 mg/dL (1.8-2.4) Triglycerides Level 92 mg/dL (0-150) Cholesterol Level 118 mg/dL (0-200) LDL Cholesterol, Calculated 73 mg/dL (0-100) VLDL Cholesterol, Calculated 18 mg/dL (0-40) Non-HDL Cholesterol Calculated 91 mg/dL (0-129) HDL Cholesterol 27 mg/dL (40-60) Cholesterol/HDL Ratio 4.4 Thyroid Stimulating Hormone (TSH) 3.630 uIU/mL (0.358-3.74) Test 10/29/18 07:14 10/29/18 10:55 Glucose (Fingerstick) 122 mg/dL (70-99) O2 Saturation 59 % (92-99) Arterial Blood pH 7.24 (7.35-7.45) Arterial Blood pCO2 at Patient Temp 98 mmHg (35-46) Arterial Blood pO2 at Patient Temp < 42 mmHg (65-108) Arterial Blood HCO3 41 mmol/L (21-28) Arterial Blood Base Excess 9 mmol/L (-3-3) FiO2 21 VTE Prophylaxis Ordered VTE Prophylaxis Devices: Yes VTE Pharmacological Prophylaxi: Yes Assessment/Plan Assessment/Plan ASSESSMENT Probable Acute on chronic Diastolic Heart Failure in setting of undiagnosed FLAKITO/UC HTN DM2 Morbid obesity Probable FLAKITO PLAN - admit to tele bed - check TTE - continue IV lasix. BP normal, will hold home BP meds as on IV lasix BID - SSI, continue home DM meds - check tsh and a1c - cards and pulm consult - needs outpatient sleep study - dvt ppx: lovenox - full code Problem Qualifiers (1) CHF (congestive heart failure): Heart failure type: unspecified Heart failure chronicity: unspecified Qualified Codes: I50.9 - Heart failure, unspecified BIJU MEAD MD October 29, 2018 14:44
[2018-10-29 15:00] VITALS: BP 115/71
[2018-10-29 16:16] LABS: HEMOGLOBIN A1C 6.4 % (4.8-5.6)
[2018-10-29] MEDS: GLIMEPIRIDE 2 MG TABLET. PO SCH (17:30)
[2018-10-29 19:11] VITALS: BP 157/97
[2018-10-29 20:44] LABS: AMPHETAMINE/METHAMPHETAMINE NEG (NEG); BARBITURATES NEG (NEG); BENZODIAZEPINES NEG (NEG); CANNABINOIDS NEG (NEG); COCAINE NEG (NEG); METHADONE NEG (NEG); OPIATES NEG (NEG); PHENCYCLIDINE NEG (NEG)
[2018-10-29 23:13] VITALS: BP 169/87
[2018-10-30 03:15] VITALS: BP 147/83
--- NOTE | 2018-10-30 03:54 | CONS ---
DATE OF CONSULTATION: 10/29/2018 ATTENDING PHYSICIAN: Sundar Dean. REASON FOR CONSULTATION: The patient seen in Pulmonary consultation at the request of Dr. Dean for abnormal arterial blood gas. HISTORY OF PRESENT ILLNESS: The patient is a 58-year-old morbid obese individual who presented with shortness of air, felt like he was unable to take a deep breath. It has been ongoing now for a few weeks. Worsen with exertion, not been able to sleep. He was partially sitting up and sleeping. He cannot lay down flat. He also had some fluttering in his chest. No nausea, vomiting or diarrhea. No fever. He did have some increasing lower extremity edema. The patient was evaluated in the Emergency Room. A CT angiogram was obtained. Limited views revealed no significant central pulmonary emboli and he did have a small moderate right-sided effusion. He also had some perihepatic ascites. Part of his workup included a blood gas revealing significant acidosis with a pCO2 of 98. The patient is currently on BiPAP. He is sleepy but arousable. He has become more responsive since his BiPAP. This is according to the RN and RT. In fact, he had the BiPAP off to eat. While I was interviewing him, he was back on BiPAP and relatively sleepy but arousable, following commands and instructions. PAST MEDICAL HISTORY: Otherwise remarkable for hypertension and urinary retention. PAST SURGICAL HISTORY: He has had previous appendectomy and right knee surgeries. ALLERGIES: No known drug allergies. REVIEW OF SYSTEMS: As indicated in the history of present illness, otherwise other systems could not be adequately reviewed. CURRENT MEDICATIONS: List was reviewed. SOCIAL HISTORY: Socially, unknown if he is currently smoking. FAMILY HISTORY: Unknown. PHYSICAL EXAMINATION: VITAL SIGNS: Stable. O2 saturation was greater than 92%, currently on BiPAP. HEENT: Eyes, the sclerae were nonicteric. NECK: Jugular venous distention could not be assessed secondary to body habitus. CHEST: Full expansion. LUNGS: Adequate airway flow with no wheezes. CARDIOVASCULAR: Regular rate and rhythm with S1 and S2. No S3. ABDOMEN: Obese. EXTREMITIES: 1+ edema with obesity. NEUROLOGICAL: The patient was sleepy but arousable. Follow commands. LABORATORY STUDIES: Labs were reviewed. White count was normal. Hemoglobin and hematocrit were noted. Electrolytes were noted. BUN is elevated. Creatinine was normal. Albumin was low. RADIOLOGICAL DATA: CT as indicated above. IMPRESSION: 1. Xyouf-sd-xqmwuwn hypoxemic hypercapnic respiratory failure. 2. Morbid obesity. 3. Suspect obstructive sleep apnea. 4. Effusion, right greater than left. 5. Suspect chronic acute cor pulmonale. 6. Protein malnutrition, present upon admission. 7. Morbid obesity. PLAN: 1. Continue current BiPAP. Repeat arterial blood gas. 2. Diurese per Cardiology. 3. Outpatient polysomnogram. I do appreciate the privilege in sharing in the patient's care. JACQUELIN ROCHA MD DR: JH/mike JOB#: [id number] / [id number]
[2018-10-30 05:47] LABS: CALCIUM 9.5 mg/dL (8.5-10.1); GFR 92.5; POTASSIUM 4.1 mmol/L (3.5-5.1)
[2018-10-30] MEDS ORDERED: DEXTROSE 50% 25 GM / 50ML DISP.SYRIN. IV ONE ×2 (06:21→07:00)
[2018-10-30 07:00] VITALS: BP 135/71
[2018-10-30] MEDS: GLIMEPIRIDE 2 MG TABLET. PO SCH (08:00)
[2018-10-30] MEDS: FUROSEMIDE 40 MG/4 ML VIAL. IVP SCH ×2 (09:53→15:31)
--- NOTE | 2018-10-30 09:53 | PDOC ---
PROGRESS NOTES Chief Complaint Chief Complaint Past Medical History Cardiovascular: HTN, Hyperlipidemia Pulmonary: No pertinent hx CENTRAL NERVOUS SYSTEM: Other (No pertinent history) GI: No pertinent hx Heme/Onc: No pertinent hx Hepatobiliary: No pertinent hx Psych: No pertinent hx Musculoskeletal: Osteoarthritis Rheumatologic: No pertinent hx Infectious disease: No pertinent hx ENT: No pertinent hx Renal/: UTI, Other (phimoes, urinary retention) Endocrine: Diabetes (2) Dermatology: No pertinent hx Past Surgical History Past Surgical History: Total knee replacement (left knee) Family History Family History DM Social History Smoke: No ALCOHOL: none Drugs: None History of Present Illness History of Present Illness Assessment/Plan Assessment/Plan ASSESSMENT Probable Acute on chronic Diastolic Heart Failure in setting of undiagnosed FLAKITO/UC HTN Acute on chronic heart failure. Probably diastolic dysfunction. DM2 Morbid obesity Probable FLAKITO SEVERE HYPERCAPNEA PCO2=98 phimosis PLAN - CVC tele bed - check TTE - continue IV lasix. BP normal, will hold home BP meds as on IV lasix BID - SSI, continue home DM meds - check tsh and a1c - cards and pulm consult - needs outpatient sleep study - dvt ppx: lovenox - full code 45 min pt exam, chart review, > 50% of time spent with exam, chart review pt care coordination Vitals Vitals Vital Signs Date Time Temp Pulse Resp B/P (MAP) Pulse Ox O2 Delivery O2 Flow Rate FiO2 10/30/18 07:52 99 BiPAP/CPAP 10/30/18 03:15 97.5 94 24 147/83 (104) 97.5 10/29/18 08:00 5.0 Physical Exam General: Alert, Oriented X3, Cooperative, mild distress Heart: Regular rate, Normal S1, Other (distant heart sounds due to body habitus) Lungs: Clear, Other (diminshed) Abdomen: Soft, Other (anasarca) Extremities: No cyanosis, Other (3-4+ bilateral Le pitting edema) Skin: Other (venous dermatitis/ phimosis) Labs LABS One or more of the following individualized dose reduction techniques were utilized for this examination: 1. Automated exposure control. 2. Adjustment of the mA and/or kV according to patient size. 3. Use of iterative reconstruction technique. Indication:Shortness of breath. TECHNIQUE: CT angiogram of the chest with IV contrast with multiplanar MIP reformats. COMPARISON: None FINDINGS: Suboptimal PE study due to contrast bolus timing. No central filling defects in the pulmonary arteries. Evaluation of segmental and subsegmental pulmonary arteries is limited. Heart is moderately enlarged in size. No pericardial effusion. Moderate right pleural effusion. No enlarged axillary, mediastinal or hilar adenopathy. Motion artifact is seen in the lungs limiting optimal evaluation. Consolidation is seen in the right lung base. Small volume ascites is seen. Small amount of perigastric fluid is seen, nonspecific. No suspicious bony lesion. IMPRESSION: 1. Suboptimal PE study due to contrast bolus timing and breathing motion artifact. No central embolus. Laceration of segmental and subsegmental pulmonary arteries is limited. 2. Small to moderate volume right pleural effusion with consolidation in the right lung base which may be secondary to passive atelectasis from adjacent pleural effusion or pneumonia. 3. Small volume perihepatic ascites, nonspecific. Electronically signed by: Michael Coelho DO (10/28/2018 9:53 PM) [facility] DICTATED and SIGNED BY: MICHAEL COELHO DO DATE: 10/28/182152 Laboratory Tests Test 10/29/18 10:55 10/29/18 17:12 10/29/18 20:20 10/29/18 20:41 O2 Saturation 59 % (92-99) Arterial Blood pH 7.24 (7.35-7.45) Arterial Blood pCO2 at Patient Temp 98 mmHg (35-46) Arterial Blood pO2 at Patient Temp < 42 mmHg (65-108) Arterial Blood HCO3 41 mmol/L (21-28) Arterial Blood Base Excess 9 mmol/L (-3-3) FiO2 21 Glucose (Fingerstick) 92 mg/dL (70-99) 78 mg/dL (70-99) Urine Opiates Screen Neg (NEG) Urine Methadone Screen Neg (NEG) Urine Barbiturates Neg (NEG) Urine Phencyclidine Screen Neg (NEG) Urine Amphetamine/Methamphetamine Neg (NEG) Urine Benzodiazepines Screen Neg (NEG) Urine Cocaine Screen Neg (NEG) Urine Cannabinoids Screen Neg (NEG) Urine Ethyl Alcohol Neg (NEG) Test 10/30/18 05:00 10/30/18 06:17 10/30/18 06:54 10/30/18 07:36 Sodium Level 144 mmol/L (136-145) Potassium Level 4.1 mmol/L (3.5-5.1) Chloride Level 101 mmol/L (98-107) Carbon Dioxide Level 40 mmol/L (21-32) Anion Gap 3 (6-14) Blood Urea Nitrogen 30 mg/dL (8-26) Creatinine 1.0 mg/dL (0.7-1.3) Estimated GFR (Cockcroft-Gault) 92.5 Glucose Level 42 mg/dL (70-99) Calcium Level 9.5 mg/dL (8.5-10.1) Magnesium Level 2.0 mg/dL (1.8-2.4) Glucose (Fingerstick) 55 mg/dL (70-99) 78 mg/dL (70-99) 86 mg/dL (70-99) Assessment and Plan Assessmemt and Plan Problems Medical Problems: (1) CHF (congestive heart failure) Status: Acute (2) Hypoxemia Status: Acute Comment Review of Relevant I have reviewed the following items neil (where applicable) has been applied. Labs Laboratory Tests Test 10/28/18 19:05 10/28/18 20:07 10/29/18 01:10 10/29/18 03:50 White Blood Count 7.0 x10^3/uL (4.0-11.0) 7.5 x10^3/uL (4.0-11.0) Red Blood Count 4.86 x10^6/uL (4.30-5.70) 4.71 x10^6/uL (4.30-5.70) Hemoglobin 13.2 g/dL (13.0-17.5) 12.8 g/dL (13.0-17.5) Hematocrit 42.0 % (39.0-53.0) 40.7 % (39.0-53.0) Mean Corpuscular Volume 86 fL (79-100) 86 fL (79-100) Mean Corpuscular Hemoglobin 27 pg (25-35) 27 pg (25-35) Mean Corpuscular Hemoglobin Concent 31 g/dL (31-37) 31 g/dL (31-37) Red Cell Distribution Width 16.9 % (11.5-14.5) 16.5 % (11.5-14.5) Platelet Count 279 x10^3/uL (140-400) 272 x10^3/uL (140-400) Neutrophils (%) (Auto) 62 % (31-73) 62 % (31-73) Lymphocytes (%) (Auto) 17 % (24-48) 15 % (24-48) Monocytes (%) (Auto) 21 % (0-9) 21 % (0-9) Eosinophils (%) (Auto) 1 % (0-3) 1 % (0-3) Basophils (%) (Auto) 1 % (0-3) 1 % (0-3) Neutrophils # (Auto) 4.3 x10^3uL (1.8-7.7) 4.7 x10^3uL (1.8-7.7) Lymphocytes # (Auto) 1.2 x10^3/uL (1.0-4.8) 1.1 x10^3/uL (1.0-4.8) Monocytes # (Auto) 1.4 x10^3/uL (0.0-1.1) 1.6 x10^3/uL (0.0-1.1) Eosinophils # (Auto) 0.0 x10^3/uL (0.0-0.7) 0.1 x10^3/uL (0.0-0.7) Basophils # (Auto) 0.0 x10^3/uL (0.0-0.2) 0.1 x10^3/uL (0.0-0.2) Segmented Neutrophils % 58 % (35-66) Band Neutrophils % 2 % (0-9) Lymphocytes % 22 % (24-48) Monocytes % 15 % (0-10) Eosinophils % 2 % (0-5) Basophils % 1 % (0-3) Platelet Estimate Adequate (ADEQUATE) Polychromasia Slight D-Dimer (Melva) 5.30 ug/mlFEU (0.00-0.50) Sodium Level 141 mmol/L (136-145) 140 mmol/L (136-145) Potassium Level 5.2 mmol/L (3.5-5.1) 4.5 mmol/L (3.5-5.1) Chloride Level 100 mmol/L (98-107) 101 mmol/L (98-107) Carbon Dioxide Level 35 mmol/L (21-32) 37 mmol/L (21-32) Anion Gap 6 (6-14) 2 (6-14) Blood Urea Nitrogen 44 mg/dL (8-26) 39 mg/dL (8-26) Creatinine 1.4 mg/dL (0.7-1.3) 1.2 mg/dL (0.7-1.3) Estimated GFR (Cockcroft-Gault) 62.8 75.0 BUN/Creatinine Ratio 31 (6-20) 33 (6-20) Glucose Level 65 mg/dL (70-99) 84 mg/dL (70-99) Calcium Level 9.3 mg/dL (8.5-10.1) 9.3 mg/dL (8.5-10.1) Total Bilirubin 1.3 mg/dL (0.2-1.0) 1.3 mg/dL (0.2-1.0) Aspartate Amino Transf (AST/SGOT) 34 U/L (15-37) 31 U/L (15-37) Alanine Aminotransferase (ALT/SGPT) 44 U/L (16-63) 45 U/L (16-63) Alkaline Phosphatase 76 U/L (46-116) 73 U/L (46-116) Troponin I Quantitative < 0.017 ng/mL (0.000-0.055) < 0.017 ng/mL (0.000-0.055) < 0.017 ng/mL (0.000-0.055) VH-Tsa-U-Type Natriuretic Peptide 5329 pg/mL (0-124) Total Protein 7.2 g/dL (6.4-8.2) 7.2 g/dL (6.4-8.2) Albumin 3.0 g/dL (3.4-5.0) 3.0 g/dL (3.4-5.0) Albumin/Globulin Ratio 0.7 (1.0-1.7) 0.7 (1.0-1.7) Urine Collection Type Unknown Urine Color Yellow Urine Clarity Clear Urine pH 5.5 Urine Specific [place] 1.010 Urine Protein Negative mg/dL (NEG-TRACE) Urine Glucose (UA) Negative mg/dL (NEG) Urine Ketones (Stick) Negative mg/dL (NEG) Urine Blood Negative (NEG) Urine Nitrite Negative (NEG) Urine Bilirubin Negative (NEG) Urine Urobilinogen Dipstick 2.0 mg/dL (0.2 mg/dL) Urine Leukocyte Esterase Negative (NEG) Urine RBC 0 /HPF (0-2) Urine WBC 1-4 /HPF (0-4) Urine Squamous Epithelial Cells Mod /LPF Urine Bacteria 0 /HPF (0-FEW) Urine Hyaline Casts Many /HPF Urine Mucus Mod /LPF Hemoglobin A1c 6.4 % (4.8-5.6) Magnesium Level 2.1 mg/dL (1.8-2.4) Triglycerides Level 92 mg/dL (0-150) Cholesterol Level 118 mg/dL (0-200) LDL Cholesterol, Calculated 73 mg/dL (0-100) VLDL Cholesterol, Calculated 18 mg/dL (0-40) Non-HDL Cholesterol Calculated 91 mg/dL (0-129) HDL Cholesterol 27 mg/dL (40-60) Cholesterol/HDL Ratio 4.4 Thyroid Stimulating Hormone (TSH) 3.630 uIU/mL (0.358-3.74) Test 10/29/18 07:14 10/29/18 10:55 10/29/18 17:12 10/29/18 20:20 Glucose (Fingerstick) 122 mg/dL (70-99) 92 mg/dL (70-99) O2 Saturation 59 % (92-99) Arterial Blood pH 7.24 (7.35-7.45) Arterial Blood pCO2 at Patient Temp 98 mmHg (35-46) Arterial Blood pO2 at Patient Temp < 42 mmHg (65-108) Arterial Blood HCO3 41 mmol/L (21-28) Arterial Blood Base Excess 9 mmol/L (-3-3) FiO2 21 Urine Opiates Screen Neg (NEG) Urine Methadone Screen Neg (NEG) Urine Barbiturates Neg (NEG) Urine Phencyclidine Screen Neg (NEG) Urine Amphetamine/Methamphetamine Neg (NEG) Urine Benzodiazepines Screen Neg (NEG) Urine Cocaine Screen Neg (NEG) Urine Cannabinoids Screen Neg (NEG) Urine Ethyl Alcohol Neg (NEG) Test 10/29/18 20:41 10/30/18 05:00 10/30/18 06:17 10/30/18 06:54 Glucose (Fingerstick) 78 mg/dL (70-99) 55 mg/dL (70-99) 78 mg/dL (70-99) Sodium Level 144 mmol/L (136-145) Potassium Level 4.1 mmol/L (3.5-5.1) Chloride Level 101 mmol/L (98-107) Carbon Dioxide Level 40 mmol/L (21-32) Anion Gap 3 (6-14) Blood Urea Nitrogen 30 mg/dL (8-26) Creatinine 1.0 mg/dL (0.7-1.3) Estimated GFR (Cockcroft-Gault) 92.5 Glucose Level 42 mg/dL (70-99) Calcium Level 9.5 mg/dL (8.5-10.1) Magnesium Level 2.0 mg/dL (1.8-2.4) Test 10/30/18 07:36 Glucose (Fingerstick) 86 mg/dL (70-99) Laboratory Tests Test 10/29/18 10:55 10/29/18 17:12 10/29/18 20:20 10/29/18 20:41 O2 Saturation 59 % (92-99) Arterial Blood pH 7.24 (7.35-7.45) Arterial Blood pCO2 at Patient Temp 98 mmHg (35-46) Arterial Blood pO2 at Patient Temp < 42 mmHg (65-108) Arterial Blood HCO3 41 mmol/L (21-28) Arterial Blood Base Excess 9 mmol/L (-3-3) FiO2 21 Glucose (Fingerstick) 92 mg/dL (70-99) 78 mg/dL (70-99) Urine Opiates Screen Neg (NEG) Urine Methadone Screen Neg (NEG) Urine Barbiturates Neg (NEG) Urine Phencyclidine Screen Neg (NEG) Urine Amphetamine/Methamphetamine Neg (NEG) Urine Benzodiazepines Screen Neg (NEG) Urine Cocaine Screen Neg (NEG) Urine Cannabinoids Screen Neg (NEG) Urine Ethyl Alcohol Neg (NEG) Test 10/30/18 05:00 10/30/18 06:17 10/30/18 06:54 10/30/18 07:36 Sodium Level 144 mmol/L (136-145) Potassium Level 4.1 mmol/L (3.5-5.1) Chloride Level 101 mmol/L (98-107) Carbon Dioxide Level 40 mmol/L (21-32) Anion Gap 3 (6-14) Blood Urea Nitrogen 30 mg/dL (8-26) Creatinine 1.0 mg/dL (0.7-1.3) Estimated GFR (Cockcroft-Gault) 92.5 Glucose Level 42 mg/dL (70-99) Calcium Level 9.5 mg/dL (8.5-10.1) Magnesium Level 2.0 mg/dL (1.8-2.4) Glucose (Fingerstick) 55 mg/dL (70-99) 78 mg/dL (70-99) 86 mg/dL (70-99) Medications Current Medications Furosemide (Lasix) 60 mg 1X ONCE IVP Last administered on 10/28/18at 19:31; Start 10/28/18 at 19:15; Stop 10/28/18 at 19:16; Status DC Iohexol (Omnipaque 350 Mg/ml) 100 ml 1X ONCE IV Last administered on 10/28/18at 21:15; Start 10/28/18 at 21:15; Stop 10/28/18 at 21:16; Status DC Info (CONTRAST GIVEN -- Rx MONITORING) 1 each PRN DAILY PRN MC SEE COMMENTS; Start 10/28/18 at 21:15; Stop 10/30/18 at 21:14 Ondansetron HCl (Zofran) 4 mg PRN Q8HRS PRN IV NAUSEA/VOMITING 1ST CHOICE; Start 10/28/18 at 22:15; Stop 10/29/18 at 22:14; Status DC Morphine Sulfate (Morphine Sulfate) 2 mg PRN Q2HR PRN IV SEVERE PAIN; Start 10/28/18 at 22:15; Stop 10/29/18 at 22:14; Status DC Acetaminophen (Tylenol) 650 mg PRN Q4HRS PRN PO FEVER; Start 10/28/18 at 22:15; Stop 10/29/18 at 22:14; Status DC Hydralazine HCl (Apresoline Inj) 10 mg 1X ONCE IVP Last administered on 10/29/18at 00:32; Start 10/29/18 at 00:30; Stop 10/29/18 at 00:31; Status DC Perflutren Protein Type A Microsphe (Optison) 0.66 mg STK-MED ONCE IV ; Start 10/29/18 at 10:54; Stop 10/29/18 at 10:55; Status DC Furosemide (Lasix) 40 mg BID92 IVP Last administered on 10/29/18at 17:30; Start 10/29/18 at 11:00 Glimepiride (Amaryl) 2 mg DAILY08 PO Last administered on 10/29/18at 17:30; Start 10/29/18 at 17:00 Metformin HCl (Glucophage Xr) 500 mg DAILYWBKFT PO ; Start 11/01/18 at 08:00 Enoxaparin Sodium (Lovenox Per Pharmacy Prophylaxis Dosing) 1 each PRN DAILY PRN MC SEE COMMENTS; Start 10/29/18 at 14:45 Enoxaparin Sodium (Lovenox 60mg Syringe) 60 mg Q12HR SQ Last administered on 10/29/18at 20:39; Start 10/29/18 at 21:00 Dextrose (Dextrose 50%-Water Syringe) 25 gm STK-MED ONCE IV ; Start 10/30/18 at 06:21; Stop 10/30/18 at 06:22; Status DC Dextrose (Dextrose 50%-Water Syringe) 25 gm 1X ONCE IV Last administered on 10/30/18at 07:05; Start 10/30/18 at 07:00; Stop 10/30/18 at 07:01; Status DC Perflutren Protein Type A Microsphe (Optison) 0.66 mg STK-MED ONCE IV ; Start 10/29/18 at 11:00; Stop 10/30/18 at 08:46; Status DC Active Scripts Active Metformin Hcl Er (Metformin Hcl) 500 Mg Tab.er.24h 500 Mg PO BIDWMEALS Lisinopril 5 Mg Tablet 1 Tab PO DAILY Norvasc (Amlodipine Besylate) 2.5 Mg Tablet 1 Tab PO DAILY Reported Amlodipine Besylate 5 Mg Tablet 5 Mg PO DAILY Metformin Hcl Er (Metformin Hcl) 500 Mg Tab.er.24h 500 Mg PO DAILYWBKFT Lisinopril-Hctz 20-12.5 Mg Tab (Lisinopril/Hydrochlorothiazide) 1 Each Tablet 1 Tab PO DAILY Amaryl (Glimepiride) 1 Mg Tablet 2 Tab PO DAILY Furosemide 40 Mg Tablet 40 Mg PO DAILY Potassium Chloride 20 Meq Tablet.er 20 Meq PO DAILY Vitals/I & O Vital Sign - Last 24 Hours 10/29/18 10/29/18 10/29/18 10/29/18 11:00 11:25 11:45 15:00 Temp 98.6 98.0 98.6 98.0 Pulse 102 96 Resp 20 20 B/P (MAP) 114/70 (85) 115/71 (86) Pulse Ox 100 21 100 O2 Delivery NonRebreather Mask Room Air BiPAP/CPAP NonRebreather Mask 10/29/18 10/29/18 10/29/18 10/29/18 16:07 19:11 19:43 20:00 Pulse 100 Resp 24 B/P (MAP) 157/97 (117) Pulse Ox 97 O2 Delivery BiPAP/CPAP BiPAP/CPAP BiPAP/CPAP Bi-pap 10/29/18 10/30/18 10/30/18 10/30/18 23:13 00:11 02:37 03:15 Temp 97.5 97.5 97.5 97.5 Pulse 98 94 Resp 24 24 B/P (MAP) 169/87 (114) 147/83 (104) Pulse Ox 99 99 94 O2 Delivery BiPAP/CPAP BiPAP/CPAP BiPAP/CPAP BiPAP/CPAP 10/30/18 10/30/18 04:56 07:52 Pulse Ox 99 O2 Delivery BiPAP/CPAP BiPAP/CPAP Intake and Output 10/29/18 10/29/18 10/30/18 14:59 22:59 06:59 Intake Total 360 ml 474 ml 560 ml Output Total 1000 ml 1300 ml Balance 360 ml -526 ml -740 ml VANDANA BRITO MD October 30, 2018 09:53
[2018-10-30 11:00] VITALS: BP 151/89
--- NOTE | 2018-10-30 12:13 | PDOC ---
PULMONARY PROGRESS NOTES Subjective PT FEELS BETTER MORE AWAKE Vitals Vital Signs Date Time Temp Pulse Resp B/P (MAP) Pulse Ox O2 Delivery O2 Flow Rate FiO2 10/30/18 11:51 97 BiPAP/CPAP 10/30/18 03:15 97.5 94 24 147/83 (104) 97.5 10/29/18 08:00 5.0 ROS: No Nausea, No Chest Pain, No Abdominal Pain, No Increase Cough Lungs: Crackles Cardiovascular: S1, S2 Abdomen: Other (0BESE) Neuro Exam: Alert Extremities: Other (EDEMA) Skin: Warm Labs Laboratory Tests Test 10/28/18 19:05 10/28/18 20:07 10/29/18 01:10 10/29/18 03:50 White Blood Count 7.0 x10^3/uL (4.0-11.0) 7.5 x10^3/uL (4.0-11.0) Red Blood Count 4.86 x10^6/uL (4.30-5.70) 4.71 x10^6/uL (4.30-5.70) Hemoglobin 13.2 g/dL (13.0-17.5) 12.8 g/dL (13.0-17.5) Hematocrit 42.0 % (39.0-53.0) 40.7 % (39.0-53.0) Mean Corpuscular Volume 86 fL (79-100) 86 fL (79-100) Mean Corpuscular Hemoglobin 27 pg (25-35) 27 pg (25-35) Mean Corpuscular Hemoglobin Concent 31 g/dL (31-37) 31 g/dL (31-37) Red Cell Distribution Width 16.9 % (11.5-14.5) 16.5 % (11.5-14.5) Platelet Count 279 x10^3/uL (140-400) 272 x10^3/uL (140-400) Neutrophils (%) (Auto) 62 % (31-73) 62 % (31-73) Lymphocytes (%) (Auto) 17 % (24-48) 15 % (24-48) Monocytes (%) (Auto) 21 % (0-9) 21 % (0-9) Eosinophils (%) (Auto) 1 % (0-3) 1 % (0-3) Basophils (%) (Auto) 1 % (0-3) 1 % (0-3) Neutrophils # (Auto) 4.3 x10^3uL (1.8-7.7) 4.7 x10^3uL (1.8-7.7) Lymphocytes # (Auto) 1.2 x10^3/uL (1.0-4.8) 1.1 x10^3/uL (1.0-4.8) Monocytes # (Auto) 1.4 x10^3/uL (0.0-1.1) 1.6 x10^3/uL (0.0-1.1) Eosinophils # (Auto) 0.0 x10^3/uL (0.0-0.7) 0.1 x10^3/uL (0.0-0.7) Basophils # (Auto) 0.0 x10^3/uL (0.0-0.2) 0.1 x10^3/uL (0.0-0.2) Segmented Neutrophils % 58 % (35-66) Band Neutrophils % 2 % (0-9) Lymphocytes % 22 % (24-48) Monocytes % 15 % (0-10) Eosinophils % 2 % (0-5) Basophils % 1 % (0-3) Platelet Estimate Adequate (ADEQUATE) Polychromasia Slight D-Dimer (Melva) 5.30 ug/mlFEU (0.00-0.50) Sodium Level 141 mmol/L (136-145) 140 mmol/L (136-145) Potassium Level 5.2 mmol/L (3.5-5.1) 4.5 mmol/L (3.5-5.1) Chloride Level 100 mmol/L (98-107) 101 mmol/L (98-107) Carbon Dioxide Level 35 mmol/L (21-32) 37 mmol/L (21-32) Anion Gap 6 (6-14) 2 (6-14) Blood Urea Nitrogen 44 mg/dL (8-26) 39 mg/dL (8-26) Creatinine 1.4 mg/dL (0.7-1.3) 1.2 mg/dL (0.7-1.3) Estimated GFR (Cockcroft-Gault) 62.8 75.0 BUN/Creatinine Ratio 31 (6-20) 33 (6-20) Glucose Level 65 mg/dL (70-99) 84 mg/dL (70-99) Calcium Level 9.3 mg/dL (8.5-10.1) 9.3 mg/dL (8.5-10.1) Total Bilirubin 1.3 mg/dL (0.2-1.0) 1.3 mg/dL (0.2-1.0) Aspartate Amino Transf (AST/SGOT) 34 U/L (15-37) 31 U/L (15-37) Alanine Aminotransferase (ALT/SGPT) 44 U/L (16-63) 45 U/L (16-63) Alkaline Phosphatase 76 U/L (46-116) 73 U/L (46-116) Troponin I Quantitative < 0.017 ng/mL (0.000-0.055) < 0.017 ng/mL (0.000-0.055) < 0.017 ng/mL (0.000-0.055) PP-Dri-W-Type Natriuretic Peptide 5329 pg/mL (0-124) Total Protein 7.2 g/dL (6.4-8.2) 7.2 g/dL (6.4-8.2) Albumin 3.0 g/dL (3.4-5.0) 3.0 g/dL (3.4-5.0) Albumin/Globulin Ratio 0.7 (1.0-1.7) 0.7 (1.0-1.7) Urine Collection Type Unknown Urine Color Yellow Urine Clarity Clear Urine pH 5.5 Urine Specific [place] 1.010 Urine Protein Negative mg/dL (NEG-TRACE) Urine Glucose (UA) Negative mg/dL (NEG) Urine Ketones (Stick) Negative mg/dL (NEG) Urine Blood Negative (NEG) Urine Nitrite Negative (NEG) Urine Bilirubin Negative (NEG) Urine Urobilinogen Dipstick 2.0 mg/dL (0.2 mg/dL) Urine Leukocyte Esterase Negative (NEG) Urine RBC 0 /HPF (0-2) Urine WBC 1-4 /HPF (0-4) Urine Squamous Epithelial Cells Mod /LPF Urine Bacteria 0 /HPF (0-FEW) Urine Hyaline Casts Many /HPF Urine Mucus Mod /LPF Hemoglobin A1c 6.4 % (4.8-5.6) Magnesium Level 2.1 mg/dL (1.8-2.4) Triglycerides Level 92 mg/dL (0-150) Cholesterol Level 118 mg/dL (0-200) LDL Cholesterol, Calculated 73 mg/dL (0-100) VLDL Cholesterol, Calculated 18 mg/dL (0-40) Non-HDL Cholesterol Calculated 91 mg/dL (0-129) HDL Cholesterol 27 mg/dL (40-60) Cholesterol/HDL Ratio 4.4 Thyroid Stimulating Hormone (TSH) 3.630 uIU/mL (0.358-3.74) Test 10/29/18 07:14 10/29/18 10:55 10/29/18 17:12 10/29/18 20:20 Glucose (Fingerstick) 122 mg/dL (70-99) 92 mg/dL (70-99) O2 Saturation 59 % (92-99) Arterial Blood pH 7.24 (7.35-7.45) Arterial Blood pCO2 at Patient Temp 98 mmHg (35-46) Arterial Blood pO2 at Patient Temp < 42 mmHg (65-108) Arterial Blood HCO3 41 mmol/L (21-28) Arterial Blood Base Excess 9 mmol/L (-3-3) FiO2 21 Urine Opiates Screen Neg (NEG) Urine Methadone Screen Neg (NEG) Urine Barbiturates Neg (NEG) Urine Phencyclidine Screen Neg (NEG) Urine Amphetamine/Methamphetamine Neg (NEG) Urine Benzodiazepines Screen Neg (NEG) Urine Cocaine Screen Neg (NEG) Urine Cannabinoids Screen Neg (NEG) Urine Ethyl Alcohol Neg (NEG) Test 10/29/18 20:41 10/30/18 05:00 10/30/18 06:17 10/30/18 06:54 Glucose (Fingerstick) 78 mg/dL (70-99) 55 mg/dL (70-99) 78 mg/dL (70-99) Sodium Level 144 mmol/L (136-145) Potassium Level 4.1 mmol/L (3.5-5.1) Chloride Level 101 mmol/L (98-107) Carbon Dioxide Level 40 mmol/L (21-32) Anion Gap 3 (6-14) Blood Urea Nitrogen 30 mg/dL (8-26) Creatinine 1.0 mg/dL (0.7-1.3) Estimated GFR (Cockcroft-Gault) 92.5 Glucose Level 42 mg/dL (70-99) Calcium Level 9.5 mg/dL (8.5-10.1) Magnesium Level 2.0 mg/dL (1.8-2.4) Test 10/30/18 07:36 Glucose (Fingerstick) 86 mg/dL (70-99) Laboratory Tests Test 10/29/18 17:12 10/29/18 20:20 10/29/18 20:41 10/30/18 05:00 Glucose (Fingerstick) 92 mg/dL (70-99) 78 mg/dL (70-99) Urine Opiates Screen Neg (NEG) Urine Methadone Screen Neg (NEG) Urine Barbiturates Neg (NEG) Urine Phencyclidine Screen Neg (NEG) Urine Amphetamine/Methamphetamine Neg (NEG) Urine Benzodiazepines Screen Neg (NEG) Urine Cocaine Screen Neg (NEG) Urine Cannabinoids Screen Neg (NEG) Urine Ethyl Alcohol Neg (NEG) Sodium Level 144 mmol/L (136-145) Potassium Level 4.1 mmol/L (3.5-5.1) Chloride Level 101 mmol/L (98-107) Carbon Dioxide Level 40 mmol/L (21-32) Anion Gap 3 (6-14) Blood Urea Nitrogen 30 mg/dL (8-26) Creatinine 1.0 mg/dL (0.7-1.3) Estimated GFR (Cockcroft-Gault) 92.5 Glucose Level 42 mg/dL (70-99) Calcium Level 9.5 mg/dL (8.5-10.1) Magnesium Level 2.0 mg/dL (1.8-2.4) Test 10/30/18 06:17 10/30/18 06:54 10/30/18 07:36 Glucose (Fingerstick) 55 mg/dL (70-99) 78 mg/dL (70-99) 86 mg/dL (70-99) Medications Active Scripts Medications Dose Route/Sig Max Daily Dose Days Date Category Amlodipine Besylate 5 Mg Tablet 5 Mg PO DAILY 10/29/18 Reported Metformin Hcl Er (Metformin Hcl) 500 Mg Tab.er.24h 500 Mg PO DAILYWBKFT 10/29/18 Reported Lisinopril-Hctz 20-12.5 Mg Tab (Lisinopril/Hydrochlorothiazide) 1 Each Tablet 1 Tab PO DAILY 10/29/18 Reported Amaryl (Glimepiride) 1 Mg Tablet 2 Tab PO DAILY 10/29/18 Reported Furosemide 40 Mg Tablet 40 Mg PO DAILY 10/29/18 Reported Potassium Chloride 20 Meq Tablet.er 20 Meq PO DAILY 10/29/18 Reported Metformin Hcl Er (Metformin Hcl) 500 Mg Tab.er.24h 500 Mg PO BIDWMEALS 11/29/17 Rx Lisinopril 5 Mg Tablet 1 Tab PO DAILY 11/29/17 Rx Norvasc (Amlodipine Besylate) 2.5 Mg Tablet 1 Tab PO DAILY 11/29/17 Rx Impression . IMPRESSION: 1. Ianvu-oa-ifdnxdn hypoxemic hypercapnic respiratory failure. 2. Morbid obesity. 3. Suspect obstructive sleep apnea. 4. Effusion, right greater than left. 5. Suspect chronic acute cor pulmonale. 6. Protein malnutrition, present upon admission. 7. Morbid obesity. Plan . BIPAP 02 N/C FOR MEALS AND POOR DEPUTY SHERIFF K9 [employer] JACQUELIN FREEDMAN MD October 30, 2018 12:13
--- NOTE | 2018-10-30 12:47 | PDOC2 ---
PALLIATIVE CARE Palliative Care Note Palliative Care Consult requested by Dr. De La Paz to address goals of care Medical Assessment per medical record; Probable Acute on chronic Diastolic Heart Failure in setting of undiagnosed FLAKITO/UC HTN Acute on chronic heart failure. Probably diastolic dysfunction. DM2 Morbid obesity Probable FLAKITO SEVERE HYPERCAPNEA PCO2=98 phimosis Patient alert. Sitting up in chair. Discussed Code Status; Full Code. Plan family meeting Friday LIV SAAVEDRA October 30, 2018 12:47
--- NOTE | 2018-10-30 13:26 | PDOC2 ---
MARLENY GALLAGHER [employer]IST 10/30/18 1326: UROLOGY CONSULT Date of Consult Date of Consult DATE: 10/30/18 TIME: 13:15 Reason for Consult Reason for Consult: PT has history of retention, urinating on floor for staff currently. Abnormal phallic exam. Identification/Chief Complaint Chief Complaint Pt has history of retention, urinating on floor currently. Abnormal phallic exam. Source Source: Caregiver, Chart review, Patient History of Present Illness Reason for Visit: Pt admitted to [facility] for s CHF exacerbation. This gentleman is known to us, having presented to [facility] in January for acute urinary retention. At that time, his anatomy limited ability to place traditional Tamayo and an SP tube had to be placed by IR. He had this for about a month and [place] [facility] [place] [facility] removed it when he was able to urinate through his urethra again. He also had a dorsal slit done on 02/02/18 for troublesome foreskin. Since this time, he has had no problems voiding or with retention. He denies dysuria, hematuria or abd/flank pain. His main concern is he is having a lot of trouble with incontinence, unable to use the urinal, and having to use a bed cifuentes. Nurses have concern for retention since he has had this in the past. He does have some swelling in his private area, but this is not really painful or bothersome to him at this time. Past Medical History Cardiovascular: HTN, Hyperlipidemia Pulmonary: No pertinent hx CENTRAL NERVOUS SYSTEM: Other (No pertinent history) GI: No pertinent hx Heme/Onc: No pertinent hx Hepatobiliary: No pertinent hx Psych: No pertinent hx Musculoskeletal: Osteoarthritis Rheumatologic: No pertinent hx Infectious disease: No pertinent hx ENT: No pertinent hx Renal/: UTI, Other (phimoes, urinary retention) Endocrine: Diabetes (2) Dermatology: No pertinent hx Past Surgical History Past Surgical History: Total knee replacement (left knee) Social History No ALCOHOL: none Drugs: None Lives: with Family Current Medications Current Medications Current Medications Dextrose (Dextrose 50%-Water Syringe) 25 gm 1X ONCE IV Last administered on 10/30/18at 07:05; Start 10/30/18 at 07:00; Stop 10/30/18 at 07:01; Status DC Dextrose (Dextrose 50%-Water Syringe) 25 gm STK-MED ONCE IV ; Start 10/30/18 at 06:21; Stop 10/30/18 at 06:22; Status DC Enoxaparin Sodium (Lovenox 60mg Syringe) 60 mg Q12HR SQ Last administered on 10/30/18at 09:52; Start 10/29/18 at 21:00 Enoxaparin Sodium (Lovenox Per Pharmacy Prophylaxis Dosing) 1 each PRN DAILY PRN MC SEE COMMENTS; Start 10/29/18 at 14:45 Glimepiride (Amaryl) 2 mg DAILY08 PO Last administered on 10/29/18at 17:30; Start 10/29/18 at 17:00 Metformin HCl (Glucophage Xr) 500 mg DAILYWBKFT PO ; Start 11/01/18 at 08:00 Allergies Allergies: Coded Allergies: No Known Drug Allergies (Unverified , 01/19/18) ROS Review Of Systems: CONSTITUTIONAL: No fever or chills EYES: No recent changes SKIN: No rash or itching CARDIOVASCULAR: No chest pain, syncope, palpitations, or edema RESPIRATORY: + SOB GASTROINTESTINAL: No nausea, vomiting or abdominal pain NEUROLOGICAL: No headaches or weakness ENDOCRINE: No cold or heat intolerance GENITOURINARY: + incontinence, frequency MUSCULOSKELETAL: No back pain or joint pain LYMPHATICS: No enlarged lymph nodes PSYCHIATRIC: No anxiety or depression Physical Exam Physical Exam: General: Pleasant, no acute distress, well groomed Eyes: conjunctiva anicteric, eyes full range of motion ENT: moist oral mucosa, normal dentition Neck: Trachea midline, no masses Respiratory: unlabored breathing, not using accessory muscles, Abdomen: morbid obesity, nontender on exam, nondistended, no hepatosplenomegaly, no masses : phallus has severe phimosis and mod swelling secondary to generalized third spacing of fluid. Unable to visualize urethral meatus. Non tender with palpation. Bladder scan is 17 ml times two= no retention. Vitals VITALS Vital Signs Date Time Temp Pulse Resp B/P (MAP) Pulse Ox O2 Delivery O2 Flow Rate FiO2 10/30/18 11:51 97 BiPAP/CPAP 10/30/18 11:00 98.6 100 20 151/89 (109) 98.6 10/29/18 08:00 5.0 Labs Labs Laboratory Tests Test 10/28/18 19:05 10/28/18 20:07 10/29/18 01:10 10/29/18 03:50 White Blood Count 7.0 x10^3/uL (4.0-11.0) 7.5 x10^3/uL (4.0-11.0) Red Blood Count 4.86 x10^6/uL (4.30-5.70) 4.71 x10^6/uL (4.30-5.70) Hemoglobin 13.2 g/dL (13.0-17.5) 12.8 g/dL (13.0-17.5) Hematocrit 42.0 % (39.0-53.0) 40.7 % (39.0-53.0) Mean Corpuscular Volume 86 fL (79-100) 86 fL (79-100) Mean Corpuscular Hemoglobin 27 pg (25-35) 27 pg (25-35) Mean Corpuscular Hemoglobin Concent 31 g/dL (31-37) 31 g/dL (31-37) Red Cell Distribution Width 16.9 % (11.5-14.5) 16.5 % (11.5-14.5) Platelet Count 279 x10^3/uL (140-400) 272 x10^3/uL (140-400) Neutrophils (%) (Auto) 62 % (31-73) 62 % (31-73) Lymphocytes (%) (Auto) 17 % (24-48) 15 % (24-48) Monocytes (%) (Auto) 21 % (0-9) 21 % (0-9) Eosinophils (%) (Auto) 1 % (0-3) 1 % (0-3) Basophils (%) (Auto) 1 % (0-3) 1 % (0-3) Neutrophils # (Auto) 4.3 x10^3uL (1.8-7.7) 4.7 x10^3uL (1.8-7.7) Lymphocytes # (Auto) 1.2 x10^3/uL (1.0-4.8) 1.1 x10^3/uL (1.0-4.8) Monocytes # (Auto) 1.4 x10^3/uL (0.0-1.1) 1.6 x10^3/uL (0.0-1.1) Eosinophils # (Auto) 0.0 x10^3/uL (0.0-0.7) 0.1 x10^3/uL (0.0-0.7) Basophils # (Auto) 0.0 x10^3/uL (0.0-0.2) 0.1 x10^3/uL (0.0-0.2) Segmented Neutrophils % 58 % (35-66) Band Neutrophils % 2 % (0-9) Lymphocytes % 22 % (24-48) Monocytes % 15 % (0-10) Eosinophils % 2 % (0-5) Basophils % 1 % (0-3) Platelet Estimate Adequate (ADEQUATE) Polychromasia Slight D-Dimer (Melva) 5.30 ug/mlFEU (0.00-0.50) Sodium Level 141 mmol/L (136-145) 140 mmol/L (136-145) Potassium Level 5.2 mmol/L (3.5-5.1) 4.5 mmol/L (3.5-5.1) Chloride Level 100 mmol/L (98-107) 101 mmol/L (98-107) Carbon Dioxide Level 35 mmol/L (21-32) 37 mmol/L (21-32) Anion Gap 6 (6-14) 2 (6-14) Blood Urea Nitrogen 44 mg/dL (8-26) 39 mg/dL (8-26) Creatinine 1.4 mg/dL (0.7-1.3) 1.2 mg/dL (0.7-1.3) Estimated GFR (Cockcroft-Gault) 62.8 75.0 BUN/Creatinine Ratio 31 (6-20) 33 (6-20) Glucose Level 65 mg/dL (70-99) 84 mg/dL (70-99) Calcium Level 9.3 mg/dL (8.5-10.1) 9.3 mg/dL (8.5-10.1) Total Bilirubin 1.3 mg/dL (0.2-1.0) 1.3 mg/dL (0.2-1.0) Aspartate Amino Transf (AST/SGOT) 34 U/L (15-37) 31 U/L (15-37) Alanine Aminotransferase (ALT/SGPT) 44 U/L (16-63) 45 U/L (16-63) Alkaline Phosphatase 76 U/L (46-116) 73 U/L (46-116) Troponin I Quantitative < 0.017 ng/mL (0.000-0.055) < 0.017 ng/mL (0.000-0.055) < 0.017 ng/mL (0.000-0.055) OI-Xve-C-Type Natriuretic Peptide 5329 pg/mL (0-124) Total Protein 7.2 g/dL (6.4-8.2) 7.2 g/dL (6.4-8.2) Albumin 3.0 g/dL (3.4-5.0) 3.0 g/dL (3.4-5.0) Albumin/Globulin Ratio 0.7 (1.0-1.7) 0.7 (1.0-1.7) Urine Collection Type Unknown Urine Color Yellow Urine Clarity Clear Urine pH 5.5 Urine Specific [place] 1.010 Urine Protein Negative mg/dL (NEG-TRACE) Urine Glucose (UA) Negative mg/dL (NEG) Urine Ketones (Stick) Negative mg/dL (NEG) Urine Blood Negative (NEG) Urine Nitrite Negative (NEG) Urine Bilirubin Negative (NEG) Urine Urobilinogen Dipstick 2.0 mg/dL (0.2 mg/dL) Urine Leukocyte Esterase Negative (NEG) Urine RBC 0 /HPF (0-2) Urine WBC 1-4 /HPF (0-4) Urine Squamous Epithelial Cells Mod /LPF Urine Bacteria 0 /HPF (0-FEW) Urine Hyaline Casts Many /HPF Urine Mucus Mod /LPF Hemoglobin A1c 6.4 % (4.8-5.6) Magnesium Level 2.1 mg/dL (1.8-2.4) Triglycerides Level 92 mg/dL (0-150) Cholesterol Level 118 mg/dL (0-200) LDL Cholesterol, Calculated 73 mg/dL (0-100) VLDL Cholesterol, Calculated 18 mg/dL (0-40) Non-HDL Cholesterol Calculated 91 mg/dL (0-129) HDL Cholesterol 27 mg/dL (40-60) Cholesterol/HDL Ratio 4.4 Thyroid Stimulating Hormone (TSH) 3.630 uIU/mL (0.358-3.74) Test 10/29/18 07:14 10/29/18 10:55 10/29/18 17:12 10/29/18 20:20 Glucose (Fingerstick) 122 mg/dL (70-99) 92 mg/dL (70-99) O2 Saturation 59 % (92-99) Arterial Blood pH 7.24 (7.35-7.45) Arterial Blood pCO2 at Patient Temp 98 mmHg (35-46) Arterial Blood pO2 at Patient Temp < 42 mmHg (65-108) Arterial Blood HCO3 41 mmol/L (21-28) Arterial Blood Base Excess 9 mmol/L (-3-3) FiO2 21 Urine Opiates Screen Neg (NEG) Urine Methadone Screen Neg (NEG) Urine Barbiturates Neg (NEG) Urine Phencyclidine Screen Neg (NEG) Urine Amphetamine/Methamphetamine Neg (NEG) Urine Benzodiazepines Screen Neg (NEG) Urine Cocaine Screen Neg (NEG) Urine Cannabinoids Screen Neg (NEG) Urine Ethyl Alcohol Neg (NEG) Test 10/29/18 20:41 10/30/18 05:00 10/30/18 06:17 10/30/18 06:54 Glucose (Fingerstick) 78 mg/dL (70-99) 55 mg/dL (70-99) 78 mg/dL (70-99) Sodium Level 144 mmol/L (136-145) Potassium Level 4.1 mmol/L (3.5-5.1) Chloride Level 101 mmol/L (98-107) Carbon Dioxide Level 40 mmol/L (21-32) Anion Gap 3 (6-14) Blood Urea Nitrogen 30 mg/dL (8-26) Creatinine 1.0 mg/dL (0.7-1.3) Estimated GFR (Cockcroft-Gault) 92.5 Glucose Level 42 mg/dL (70-99) Calcium Level 9.5 mg/dL (8.5-10.1) Magnesium Level 2.0 mg/dL (1.8-2.4) Test 10/30/18 07:36 Glucose (Fingerstick) 86 mg/dL (70-99) Laboratory Tests Test 10/29/18 17:12 10/29/18 20:20 10/29/18 20:41 10/30/18 05:00 Glucose (Fingerstick) 92 mg/dL (70-99) 78 mg/dL (70-99) Urine Opiates Screen Neg (NEG) Urine Methadone Screen Neg (NEG) Urine Barbiturates Neg (NEG) Urine Phencyclidine Screen Neg (NEG) Urine Amphetamine/Methamphetamine Neg (NEG) Urine Benzodiazepines Screen Neg (NEG) Urine Cocaine Screen Neg (NEG) Urine Cannabinoids Screen Neg (NEG) Urine Ethyl Alcohol Neg (NEG) Sodium Level 144 mmol/L (136-145) Potassium Level 4.1 mmol/L (3.5-5.1) Chloride Level 101 mmol/L (98-107) Carbon Dioxide Level 40 mmol/L (21-32) Anion Gap 3 (6-14) Blood Urea Nitrogen 30 mg/dL (8-26) Creatinine 1.0 mg/dL (0.7-1.3) Estimated GFR (Cockcroft-Gault) 92.5 Glucose Level 42 mg/dL (70-99) Calcium Level 9.5 mg/dL (8.5-10.1) Magnesium Level 2.0 mg/dL (1.8-2.4) Test 10/30/18 06:17 10/30/18 06:54 10/30/18 07:36 Glucose (Fingerstick) 55 mg/dL (70-99) 78 mg/dL (70-99) 86 mg/dL (70-99) Assessment/Plan Assessment/Plan Discussed timed voiding and double voiding with each void patient and spouse and attending RN and staff. All questions answered. PVR is just 17=No retention currently. Severe phimosis and swelling limits ability to place indwelling Tamayo, not recommended currently in light of no retention. With regard to abnormal exam, he had severe phimosis in February when we first met this gentleman. Phimosis is swollen secondary to third spacing of fluid, but he is still able to urinate and eliminate well, as PVR is just 17 ml. Also, phallus is non tender on exam. Repeat UA to rule out infection. Last UA done on not concerning for infection. Recommend bariatric bedside commode to assist with elimination. All questions answered. Dr. Salinas to round on patient over the weekend. CHRISTIANO SALINAS MD 10/31/18 1633: UROLOGY CONSULT Assessment/Plan Assessment/Plan Low PVR, continue med magmt. Avoid urethra tamayo. MARLENY GALLAGHER [employer] October 30, 2018 13:26 CHRISTIANO SALINAS MD October 31, 2018 16:33
[2018-10-30 15:00] VITALS: BP 154/98
[2018-10-30 15:52] LABS: BASE EXCESS COOX 13 mmol/L (-3-3); HCO3 COOX 43 mmol/L (21-28); METHEMOGLOBIN 0.3 % (0.0-1.9); OXYHEMOGLOBIN 92.5 %; PO2 COOX 73 mmHg (65-108); SAT O2 COOX 94 % (92-99)
[2018-10-30 16:07] LABS: PCO2 COOX 80 mmHg (35-46)
--- NOTE | 2018-10-30 17:07 | PDOC ---
PROGRESS NOTES Subjective Subjective Patient seen and examined Mildly less short of breath. Objective Objective Vital Signs Date Time Temp Pulse Resp B/P (MAP) Pulse Ox O2 Delivery O2 Flow Rate FiO2 10/30/18 15:50 93 Nasal Cannula 6.0 10/30/18 15:00 98.6 94 19 154/98 (116) 98.6 Intake and Output 10/30/18 07:00 Intake Total 1394 ml Output Total 2300 ml Balance -906 ml Intake Oral 1394 ml Output Urine Total 2300 ml # Voids 1 Physical Exam Abdomen: Normal bowel sounds Heart: Regular rate General: mild distress Lungs: Other (mildly decreased breath sounds) Assessment Assessment Problems Medical Problems: (1) CHF (congestive heart failure) Status: Acute (2) Hypoxemia Status: Acute Acute on chronic heart failure. Probably diastolic dysfunction. Mildly improved on present medications. Echo download was not available. Limited images suggest normal LV systolic function. Awaiting right-sided pressures. Accelerated hypertension. Improved. We'll continue present medical treatment. Diabetes mellitus. As per the primary service. Morbid obesity. Probable obstructive sleep apnea. Followed by the pulmonary service and workup in progress. Comment Review of Relevant I have reviewed the following items neil (where applicable) has been applied. Labs Laboratory Tests Test 10/28/18 19:05 10/28/18 20:07 10/29/18 01:10 10/29/18 03:50 White Blood Count 7.0 x10^3/uL (4.0-11.0) 7.5 x10^3/uL (4.0-11.0) Red Blood Count 4.86 x10^6/uL (4.30-5.70) 4.71 x10^6/uL (4.30-5.70) Hemoglobin 13.2 g/dL (13.0-17.5) 12.8 g/dL (13.0-17.5) Hematocrit 42.0 % (39.0-53.0) 40.7 % (39.0-53.0) Mean Corpuscular Volume 86 fL (79-100) 86 fL (79-100) Mean Corpuscular Hemoglobin 27 pg (25-35) 27 pg (25-35) Mean Corpuscular Hemoglobin Concent 31 g/dL (31-37) 31 g/dL (31-37) Red Cell Distribution Width 16.9 % (11.5-14.5) 16.5 % (11.5-14.5) Platelet Count 279 x10^3/uL (140-400) 272 x10^3/uL (140-400) Neutrophils (%) (Auto) 62 % (31-73) 62 % (31-73) Lymphocytes (%) (Auto) 17 % (24-48) 15 % (24-48) Monocytes (%) (Auto) 21 % (0-9) 21 % (0-9) Eosinophils (%) (Auto) 1 % (0-3) 1 % (0-3) Basophils (%) (Auto) 1 % (0-3) 1 % (0-3) Neutrophils # (Auto) 4.3 x10^3uL (1.8-7.7) 4.7 x10^3uL (1.8-7.7) Lymphocytes # (Auto) 1.2 x10^3/uL (1.0-4.8) 1.1 x10^3/uL (1.0-4.8) Monocytes # (Auto) 1.4 x10^3/uL (0.0-1.1) 1.6 x10^3/uL (0.0-1.1) Eosinophils # (Auto) 0.0 x10^3/uL (0.0-0.7) 0.1 x10^3/uL (0.0-0.7) Basophils # (Auto) 0.0 x10^3/uL (0.0-0.2) 0.1 x10^3/uL (0.0-0.2) Segmented Neutrophils % 58 % (35-66) Band Neutrophils % 2 % (0-9) Lymphocytes % 22 % (24-48) Monocytes % 15 % (0-10) Eosinophils % 2 % (0-5) Basophils % 1 % (0-3) Platelet Estimate Adequate (ADEQUATE) Polychromasia Slight D-Dimer (Melva) 5.30 ug/mlFEU (0.00-0.50) Sodium Level 141 mmol/L (136-145) 140 mmol/L (136-145) Potassium Level 5.2 mmol/L (3.5-5.1) 4.5 mmol/L (3.5-5.1) Chloride Level 100 mmol/L (98-107) 101 mmol/L (98-107) Carbon Dioxide Level 35 mmol/L (21-32) 37 mmol/L (21-32) Anion Gap 6 (6-14) 2 (6-14) Blood Urea Nitrogen 44 mg/dL (8-26) 39 mg/dL (8-26) Creatinine 1.4 mg/dL (0.7-1.3) 1.2 mg/dL (0.7-1.3) Estimated GFR (Cockcroft-Gault) 62.8 75.0 BUN/Creatinine Ratio 31 (6-20) 33 (6-20) Glucose Level 65 mg/dL (70-99) 84 mg/dL (70-99) Calcium Level 9.3 mg/dL (8.5-10.1) 9.3 mg/dL (8.5-10.1) Total Bilirubin 1.3 mg/dL (0.2-1.0) 1.3 mg/dL (0.2-1.0) Aspartate Amino Transf (AST/SGOT) 34 U/L (15-37) 31 U/L (15-37) Alanine Aminotransferase (ALT/SGPT) 44 U/L (16-63) 45 U/L (16-63) Alkaline Phosphatase 76 U/L (46-116) 73 U/L (46-116) Troponin I Quantitative < 0.017 ng/mL (0.000-0.055) < 0.017 ng/mL (0.000-0.055) < 0.017 ng/mL (0.000-0.055) JF-[id number]-[id number]-Type Natriuretic Peptide 5329 pg/mL (0-124) Total Protein 7.2 g/dL (6.4-8.2) 7.2 g/dL (6.4-8.2) Albumin 3.0 g/dL (3.4-5.0) 3.0 g/dL (3.4-5.0) Albumin/Globulin Ratio 0.7 (1.0-1.7) 0.7 (1.0-1.7) Urine Collection Type Unknown Urine Color Yellow Urine Clarity Clear Urine pH 5.5 Urine Specific Wayne 1.010 Urine Protein Negative mg/dL (NEG-TRACE) Urine Glucose (UA) Negative mg/dL (NEG) Urine Ketones (Stick) Negative mg/dL (NEG) Urine Blood Negative (NEG) Urine Nitrite Negative (NEG) Urine Bilirubin Negative (NEG) Urine Urobilinogen Dipstick 2.0 mg/dL (0.2 mg/dL) Urine Leukocyte Esterase Negative (NEG) Urine RBC 0 /HPF (0-2) Urine WBC 1-4 /HPF (0-4) Urine Squamous Epithelial Cells Mod /LPF Urine Bacteria 0 /HPF (0-FEW) Urine Hyaline Casts Many /HPF Urine Mucus Mod /LPF Hemoglobin A1c 6.4 % (4.8-5.6) Magnesium Level 2.1 mg/dL (1.8-2.4) Triglycerides Level 92 mg/dL (0-150) Cholesterol Level 118 mg/dL (0-200) LDL Cholesterol, Calculated 73 mg/dL (0-100) VLDL Cholesterol, Calculated 18 mg/dL (0-40) Non-HDL Cholesterol Calculated 91 mg/dL (0-129) HDL Cholesterol 27 mg/dL (40-60) Cholesterol/HDL Ratio 4.4 Thyroid Stimulating Hormone (TSH) 3.630 uIU/mL (0.358-3.74) Test 10/29/18 07:14 10/29/18 10:55 10/29/18 17:12 10/29/18 20:20 Glucose (Fingerstick) 122 mg/dL (70-99) 92 mg/dL (70-99) O2 Saturation 59 % (92-99) Arterial Blood pH 7.24 (7.35-7.45) Arterial Blood pCO2 at Patient Temp 98 mmHg (35-46) Arterial Blood pO2 at Patient Temp < 42 mmHg (65-108) Arterial Blood HCO3 41 mmol/L (21-28) Arterial Blood Base Excess 9 mmol/L (-3-3) FiO2 21 Urine Opiates Screen Neg (NEG) Urine Methadone Screen Neg (NEG) Urine Barbiturates Neg (NEG) Urine Phencyclidine Screen Neg (NEG) Urine Amphetamine/Methamphetamine Neg (NEG) Urine Benzodiazepines Screen Neg (NEG) Urine Cocaine Screen Neg (NEG) Urine Cannabinoids Screen Neg (NEG) Urine Ethyl Alcohol Neg (NEG) Test 10/29/18 20:41 10/30/18 05:00 10/30/18 06:17 10/30/18 06:54 Glucose (Fingerstick) 78 mg/dL (70-99) 55 mg/dL (70-99) 78 mg/dL (70-99) Sodium Level 144 mmol/L (136-145) Potassium Level 4.1 mmol/L (3.5-5.1) Chloride Level 101 mmol/L (98-107) Carbon Dioxide Level 40 mmol/L (21-32) Anion Gap 3 (6-14) Blood Urea Nitrogen 30 mg/dL (8-26) Creatinine 1.0 mg/dL (0.7-1.3) Estimated GFR (Cockcroft-Gault) 92.5 Glucose Level 42 mg/dL (70-99) Calcium Level 9.5 mg/dL (8.5-10.1) Magnesium Level 2.0 mg/dL (1.8-2.4) Test 10/30/18 07:36 10/30/18 11:57 10/30/18 15:15 Glucose (Fingerstick) 86 mg/dL (70-99) 68 mg/dL (70-99) O2 Saturation 94 % (92-99) Arterial Blood pH 7.35 (7.35-7.45) Arterial Blood pCO2 at Patient Temp 80 mmHg (35-46) Arterial Blood pO2 at Patient Temp 73 mmHg (65-108) Arterial Blood HCO3 43 mmol/L (21-28) Arterial Blood Base Excess 13 mmol/L (-3-3) Oxyhemoglobin 92.5 % Methemoglobin 0.3 % (0.0-1.9) Carbon Monoxide, Quantitative 0.9 % (0.0-1.9) FiO2 44 Laboratory Tests Test 10/29/18 17:12 10/29/18 20:20 10/29/18 20:41 10/30/18 05:00 Glucose (Fingerstick) 92 mg/dL (70-99) 78 mg/dL (70-99) Urine Opiates Screen Neg (NEG) Urine Methadone Screen Neg (NEG) Urine Barbiturates Neg (NEG) Urine Phencyclidine Screen Neg (NEG) Urine Amphetamine/Methamphetamine Neg (NEG) Urine Benzodiazepines Screen Neg (NEG) Urine Cocaine Screen Neg (NEG) Urine Cannabinoids Screen Neg (NEG) Urine Ethyl Alcohol Neg (NEG) Sodium Level 144 mmol/L (136-145) Potassium Level 4.1 mmol/L (3.5-5.1) Chloride Level 101 mmol/L (98-107) Carbon Dioxide Level 40 mmol/L (21-32) Anion Gap 3 (6-14) Blood Urea Nitrogen 30 mg/dL (8-26) Creatinine 1.0 mg/dL (0.7-1.3) Estimated GFR (Cockcroft-Gault) 92.5 Glucose Level 42 mg/dL (70-99) Calcium Level 9.5 mg/dL (8.5-10.1) Magnesium Level 2.0 mg/dL (1.8-2.4) Test 10/30/18 06:17 10/30/18 06:54 10/30/18 07:36 10/30/18 11:57 Glucose (Fingerstick) 55 mg/dL (70-99) 78 mg/dL (70-99) 86 mg/dL (70-99) O2 Saturation 94 % (92-99) Arterial Blood pH 7.35 (7.35-7.45) Arterial Blood pCO2 at Patient Temp 80 mmHg (35-46) Arterial Blood pO2 at Patient Temp 73 mmHg (65-108) Arterial Blood HCO3 43 mmol/L (21-28) Arterial Blood Base Excess 13 mmol/L (-3-3) Oxyhemoglobin 92.5 % Methemoglobin 0.3 % (0.0-1.9) Carbon Monoxide, Quantitative 0.9 % (0.0-1.9) FiO2 44 Test 10/30/18 15:15 Glucose (Fingerstick) 68 mg/dL (70-99) Medications Current Medications Furosemide (Lasix) 60 mg 1X ONCE IVP Last administered on 10/28/18at 19:31; Start 10/28/18 at 19:15; Stop 10/28/18 at 19:16; Status DC Iohexol (Omnipaque 350 Mg/ml) 100 ml 1X ONCE IV Last administered on 10/28/18at 21:15; Start 10/28/18 at 21:15; Stop 10/28/18 at 21:16; Status DC Info (CONTRAST GIVEN -- Rx MONITORING) 1 each PRN DAILY PRN MC SEE COMMENTS; Start 10/28/18 at 21:15; Stop 10/30/18 at 21:14 Ondansetron HCl (Zofran) 4 mg PRN Q8HRS PRN IV NAUSEA/VOMITING 1ST CHOICE; Start 10/28/18 at 22:15; Stop 10/29/18 at 22:14; Status DC Morphine Sulfate (Morphine Sulfate) 2 mg PRN Q2HR PRN IV SEVERE PAIN; Start 10/28/18 at 22:15; Stop 10/29/18 at 22:14; Status DC Acetaminophen (Tylenol) 650 mg PRN Q4HRS PRN PO FEVER; Start 10/28/18 at 22:15; Stop 10/29/18 at 22:14; Status DC Hydralazine HCl (Apresoline Inj) 10 mg 1X ONCE IVP Last administered on 10/29/18at 00:32; Start 10/29/18 at 00:30; Stop 10/29/18 at 00:31; Status DC Perflutren Protein Type A Microsphe (Optison) 0.66 mg STK-MED ONCE IV ; Start 10/29/18 at 10:54; Stop 10/29/18 at 10:55; Status DC Furosemide (Lasix) 40 mg BID92 IVP Last administered on 10/30/18at 15:31; Start 10/29/18 at 11:00 Glimepiride (Amaryl) 2 mg DAILY08 PO Last administered on 10/29/18at 17:30; Start 10/29/18 at 17:00 Metformin HCl (Glucophage Xr) 500 mg DAILYWBKFT PO ; Start 11/01/18 at 08:00 Enoxaparin Sodium (Lovenox Per Pharmacy Prophylaxis Dosing) 1 each PRN DAILY PRN MC SEE COMMENTS; Start 10/29/18 at 14:45 Enoxaparin Sodium (Lovenox 60mg Syringe) 60 mg Q12HR SQ Last administered on 10/30/18at 09:52; Start 10/29/18 at 21:00 Dextrose (Dextrose 50%-Water Syringe) 25 gm STK-MED ONCE IV ; Start 10/30/18 at 06:21; Stop 10/30/18 at 06:22; Status DC Dextrose (Dextrose 50%-Water Syringe) 25 gm 1X ONCE IV Last administered on 10/30/18at 07:05; Start 10/30/18 at 07:00; Stop 10/30/18 at 07:01; Status DC Perflutren Protein Type A Microsphe (Optison) 0.66 mg STK-MED ONCE IV ; Start 10/29/18 at 11:00; Stop 10/30/18 at 08:46; Status DC Active Scripts Active Metformin Hcl Er (Metformin Hcl) 500 Mg Tab.er.24h 500 Mg PO BIDWMEALS Lisinopril 5 Mg Tablet 1 Tab PO DAILY Norvasc (Amlodipine Besylate) 2.5 Mg Tablet 1 Tab PO DAILY Reported Amlodipine Besylate 5 Mg Tablet 5 Mg PO DAILY Metformin Hcl Er (Metformin Hcl) 500 Mg Tab.er.24h 500 Mg PO DAILYWBKFT Lisinopril-Hctz 20-12.5 Mg Tab (Lisinopril/Hydrochlorothiazide) 1 Each Tablet 1 Tab PO DAILY Amaryl (Glimepiride) 1 Mg Tablet 2 Tab PO DAILY Furosemide 40 Mg Tablet 40 Mg PO DAILY Potassium Chloride 20 Meq Tablet.er 20 Meq PO DAILY Vitals/I & O Vital Sign - Last 24 Hours 10/29/18 10/29/18 10/29/18 10/29/18 19:11 19:43 20:00 23:13 Temp 97.5 97.5 Pulse 100 98 Resp 24 B/P (MAP) 157/97 (117) 169/87 (114) Pulse Ox 97 99 O2 Delivery BiPAP/CPAP BiPAP/CPAP Bi-pap BiPAP/CPAP 10/30/18 10/30/18 10/30/18 10/30/18 00:11 02:37 03:15 04:56 Temp 97.5 97.5 Pulse 94 Resp 24 B/P (MAP) 147/83 (104) Pulse Ox 99 94 O2 Delivery BiPAP/CPAP BiPAP/CPAP BiPAP/CPAP BiPAP/CPAP 10/30/18 10/30/18 10/30/18 10/30/18 07:00 07:52 08:00 11:00 Temp 98.7 98.6 98.7 98.6 Pulse 93 100 Resp 20 B/P (MAP) 135/71 (92) 151/89 (109) Pulse Ox 98 99 97 O2 Delivery BiPAP/CPAP BiPAP/CPAP Bi-pap Room Air 10/30/18 10/30/18 10/30/18 10/30/18 11:51 13:00 15:00 15:50 Temp 98.6 98.6 Pulse 94 Resp 19 B/P (MAP) 154/98 (116) Pulse Ox 97 98 96 93 O2 Delivery BiPAP/CPAP BiPAP/CPAP Nasal Cannula Nasal Cannula O2 Flow Rate 2.0 6.0 Intake and Output 10/29/18 10/29/18 10/30/18 15:00 23:00 07:00 Intake Total 360 ml 474 ml 560 ml Output Total 1000 ml 1300 ml Balance 360 ml -526 ml -740 ml MYRANDA HASKINS MD October 30, 2018 17:07
[2018-10-30 19:06] VITALS: BP 117/75
[2018-10-30 22:54] VITALS: BP 119/76
[2018-10-31 03:59] VITALS: BP 146/83
[2018-10-31 07:00] VITALS: BP 108/59
--- NOTE | 2018-10-31 07:43 | PDOC ---
PULMONARY PROGRESS NOTES Subjective sob better, used bipap last night, has occ cough, not on home 02, Vitals Vital Signs Date Time Temp Pulse Resp B/P (MAP) Pulse Ox O2 Delivery O2 Flow Rate FiO2 10/31/18 03:59 98.5 105 24 146/83 (104) 96 BiPAP/CPAP 98.5 10/30/18 22:54 5.0 ROS: No Nausea, No Chest Pain, No Abdominal Pain, No Increase Cough Lungs: Crackles Cardiovascular: S1, S2 Abdomen: Other (0BESE) Neuro Exam: Alert Extremities: Other (EDEMA) Skin: Warm Labs Laboratory Tests Test 10/29/18 10:55 10/29/18 17:12 10/29/18 20:20 10/29/18 20:41 O2 Saturation 59 % (92-99) Arterial Blood pH 7.24 (7.35-7.45) Arterial Blood pCO2 at Patient Temp 98 mmHg (35-46) Arterial Blood pO2 at Patient Temp < 42 mmHg (65-108) Arterial Blood HCO3 41 mmol/L (21-28) Arterial Blood Base Excess 9 mmol/L (-3-3) FiO2 21 Glucose (Fingerstick) 92 mg/dL (70-99) 78 mg/dL (70-99) Urine Opiates Screen Neg (NEG) Urine Methadone Screen Neg (NEG) Urine Barbiturates Neg (NEG) Urine Phencyclidine Screen Neg (NEG) Urine Amphetamine/Methamphetamine Neg (NEG) Urine Benzodiazepines Screen Neg (NEG) Urine Cocaine Screen Neg (NEG) Urine Cannabinoids Screen Neg (NEG) Urine Ethyl Alcohol Neg (NEG) Test 10/30/18 05:00 10/30/18 06:17 10/30/18 06:54 10/30/18 07:36 Sodium Level 144 mmol/L (136-145) Potassium Level 4.1 mmol/L (3.5-5.1) Chloride Level 101 mmol/L (98-107) Carbon Dioxide Level 40 mmol/L (21-32) Anion Gap 3 (6-14) Blood Urea Nitrogen 30 mg/dL (8-26) Creatinine 1.0 mg/dL (0.7-1.3) Estimated GFR (Cockcroft-Gault) 92.5 Glucose Level 42 mg/dL (70-99) Calcium Level 9.5 mg/dL (8.5-10.1) Magnesium Level 2.0 mg/dL (1.8-2.4) Glucose (Fingerstick) 55 mg/dL (70-99) 78 mg/dL (70-99) 86 mg/dL (70-99) Test 10/30/18 11:57 10/30/18 15:15 10/30/18 18:34 10/30/18 20:24 O2 Saturation 94 % (92-99) Arterial Blood pH 7.35 (7.35-7.45) Arterial Blood pCO2 at Patient Temp 80 mmHg (35-46) Arterial Blood pO2 at Patient Temp 73 mmHg (65-108) Arterial Blood HCO3 43 mmol/L (21-28) Arterial Blood Base Excess 13 mmol/L (-3-3) Oxyhemoglobin 92.5 % Methemoglobin 0.3 % (0.0-1.9) Carbon Monoxide, Quantitative 0.9 % (0.0-1.9) FiO2 44 Glucose (Fingerstick) 68 mg/dL (70-99) 91 mg/dL (70-99) 87 mg/dL (70-99) Laboratory Tests Test 10/30/18 11:57 10/30/18 15:15 10/30/18 18:34 10/30/18 20:24 O2 Saturation 94 % (92-99) Arterial Blood pH 7.35 (7.35-7.45) Arterial Blood pCO2 at Patient Temp 80 mmHg (35-46) Arterial Blood pO2 at Patient Temp 73 mmHg (65-108) Arterial Blood HCO3 43 mmol/L (21-28) Arterial Blood Base Excess 13 mmol/L (-3-3) Oxyhemoglobin 92.5 % Methemoglobin 0.3 % (0.0-1.9) Carbon Monoxide, Quantitative 0.9 % (0.0-1.9) FiO2 44 Glucose (Fingerstick) 68 mg/dL (70-99) 91 mg/dL (70-99) 87 mg/dL (70-99) Medications Active Scripts Medications Dose Route/Sig Max Daily Dose Days Date Category Amlodipine Besylate 5 Mg Tablet 5 Mg PO DAILY 10/29/18 Reported Metformin Hcl Er (Metformin Hcl) 500 Mg Tab.er.24h 500 Mg PO DAILYWBKFT 10/29/18 Reported Lisinopril-Hctz 20-12.5 Mg Tab (Lisinopril/Hydrochlorothiazide) 1 Each Tablet 1 Tab PO DAILY 10/29/18 Reported Amaryl (Glimepiride) 1 Mg Tablet 2 Tab PO DAILY 10/29/18 Reported Furosemide 40 Mg Tablet 40 Mg PO DAILY 10/29/18 Reported Potassium Chloride 20 Meq Tablet.er 20 Meq PO DAILY 10/29/18 Reported Metformin Hcl Er (Metformin Hcl) 500 Mg Tab.er.24h 500 Mg PO BIDWMEALS 11/29/17 Rx Lisinopril 5 Mg Tablet 1 Tab PO DAILY 11/29/17 Rx Norvasc (Amlodipine Besylate) 2.5 Mg Tablet 1 Tab PO DAILY 11/29/17 Rx Impression . IMPRESSION: 1. [id number] hypoxemic hypercapnic respiratory failure. 2. Morbid obesity. 3. Suspect obstructive sleep apnea. 4. Effusion, right greater than left. 5. Suspect chronic acute cor pulmonale. 6. Protein malnutrition, present upon admission. 7. Morbid obesity. Plan . BIPAP qhs, setting reviewed dvt prophylaxis elevate hob [employer], monitor k, cr sleep study as out pt lose wt 02 titration, 6 min walk prior to discharge discussed w pt CESAR TERRELL MD October 31, 2018 07:43
[2018-10-31] MEDS: GLIMEPIRIDE 2 MG TABLET. PO SCH (09:55)
[2018-10-31] MEDS: FUROSEMIDE 40 MG/4 ML VIAL. IVP SCH ×2 (09:57→15:30)
[2018-10-31 09:59] LABS: BASO % 1 % (0-3); EOS # 0.1 x10^3/uL (0.0-0.7); EOS % 3 % (0-3); HEMATOCRIT 37.2 % (39.0-53.0); HEMOGLOBIN 11.7 g/dL (13.0-17.5); LYMPH # 0.8 x10^3/uL (1.0-4.8); LYMPH % 16 % (24-48); MEAN CORPUSCULAR HEMOGLOBIN 27 pg (25-35); MEAN CORPUSCULAR HGB CONC 32 g/dL (31-37); MEAN CORPUSCULAR VOLUME 86 fL (79-100); MONO # 1.3 x10^3/uL (0.0-1.1); MONO % 24 % (0-9); NEUT # 2.9 x10^3uL (1.8-7.7); NEUT % 56 % (31-73); PLATELET COUNT 223 x10^3/uL (140-400); RED BLOOD COUNT 4.34 x10^6/uL (4.30-5.70); RED CELL DISTRIBUTION WIDTH 16.4 % (11.5-14.5); WHITE BLOOD COUNT 5.1 x10^3/uL (4.0-11.0)
--- NOTE | 2018-10-31 10:00 | PDOC ---
PROGRESS NOTES Chief Complaint Chief Complaint Past Medical History Cardiovascular: HTN, Hyperlipidemia Pulmonary: No pertinent hx CENTRAL NERVOUS SYSTEM: Other (No pertinent history) GI: No pertinent hx Heme/Onc: No pertinent hx Hepatobiliary: No pertinent hx Psych: No pertinent hx Musculoskeletal: Osteoarthritis Rheumatologic: No pertinent hx Infectious disease: No pertinent hx ENT: No pertinent hx Renal/: UTI, Other (phimoes, urinary retention) Endocrine: Diabetes (2) Dermatology: No pertinent hx Past Surgical History Past Surgical History: Total knee replacement (left knee) Family History Family History DM Social History Smoke: No ALCOHOL: none Drugs: None History of Present Illness History of Present Illness Assessment/Plan Assessment/Plan ASSESSMENT Probable Acute on chronic Diastolic Heart Failure in setting of undiagnosed FLAKITO/UC HTN Acute on chronic heart failure. Probably diastolic dysfunction. DM2 Morbid obesity Probable FLAKITO SEVERE HYPERCAPNEA PCO2=98 phimosis // phallus has severe phimosis and mod swelling secondary to generalized third spacing of fluid. PLAN - CVC tele bed - check TTE - continue IV lasix. BP normal, will hold home BP meds as on IV lasix BID - SSI, continue home DM meds - check tsh and a1c - cards and pulm consult - needs outpatient sleep study - dvt ppx: lovenox - full code 42 min pt exam, chart review, > 50% of time spent with exam, chart review pt care coordination poor long term care social worker prognosis per my chart review Vitals Vitals Vital Signs Date Time Temp Pulse Resp B/P (MAP) Pulse Ox O2 Delivery O2 Flow Rate FiO2 10/31/18 08:14 Nasal Cannula 5.0 10/31/18 07:00 98.2 107 20 108/59 (75) 96 98.2 Physical Exam General: Alert, Oriented X3, Cooperative, mild distress Heart: Regular rate Lungs: Crackles Abdomen: Normal bowel sounds Extremities: No cyanosis, Other (3-4+ bilateral Le pitting edema) Skin: No breakdown, Other (venous dermatitis/ phimosis) Labs LABS Laboratory Tests Test 10/30/18 11:57 10/30/18 15:15 10/30/18 18:34 10/30/18 20:24 O2 Saturation 94 % (92-99) Arterial Blood pH 7.35 (7.35-7.45) Arterial Blood pCO2 at Patient Temp 80 mmHg (35-46) Arterial Blood pO2 at Patient Temp 73 mmHg (65-108) Arterial Blood HCO3 43 mmol/L (21-28) Arterial Blood Base Excess 13 mmol/L (-3-3) Oxyhemoglobin 92.5 % Methemoglobin 0.3 % (0.0-1.9) Carbon Monoxide, Quantitative 0.9 % (0.0-1.9) FiO2 44 Glucose (Fingerstick) 68 mg/dL (70-99) 91 mg/dL (70-99) 87 mg/dL (70-99) Test 10/31/18 07:24 Glucose (Fingerstick) 103 mg/dL (70-99) Assessment and Plan Assessmemt and Plan Problems Medical Problems: (1) CHF (congestive heart failure) Status: Acute (2) Hypoxemia Status: Acute Comment Review of Relevant I have reviewed the following items neil (where applicable) has been applied. Labs Laboratory Tests Test 10/29/18 10:55 10/29/18 17:12 10/29/18 20:20 10/29/18 20:41 O2 Saturation 59 % (92-99) Arterial Blood pH 7.24 (7.35-7.45) Arterial Blood pCO2 at Patient Temp 98 mmHg (35-46) Arterial Blood pO2 at Patient Temp < 42 mmHg (65-108) Arterial Blood HCO3 41 mmol/L (21-28) Arterial Blood Base Excess 9 mmol/L (-3-3) FiO2 21 Glucose (Fingerstick) 92 mg/dL (70-99) 78 mg/dL (70-99) Urine Opiates Screen Neg (NEG) Urine Methadone Screen Neg (NEG) Urine Barbiturates Neg (NEG) Urine Phencyclidine Screen Neg (NEG) Urine Amphetamine/Methamphetamine Neg (NEG) Urine Benzodiazepines Screen Neg (NEG) Urine Cocaine Screen Neg (NEG) Urine Cannabinoids Screen Neg (NEG) Urine Ethyl Alcohol Neg (NEG) Test 10/30/18 05:00 10/30/18 06:17 10/30/18 06:54 10/30/18 07:36 Sodium Level 144 mmol/L (136-145) Potassium Level 4.1 mmol/L (3.5-5.1) Chloride Level 101 mmol/L (98-107) Carbon Dioxide Level 40 mmol/L (21-32) Anion Gap 3 (6-14) Blood Urea Nitrogen 30 mg/dL (8-26) Creatinine 1.0 mg/dL (0.7-1.3) Estimated GFR (Cockcroft-Gault) 92.5 Glucose Level 42 mg/dL (70-99) Calcium Level 9.5 mg/dL (8.5-10.1) Magnesium Level 2.0 mg/dL (1.8-2.4) Glucose (Fingerstick) 55 mg/dL (70-99) 78 mg/dL (70-99) 86 mg/dL (70-99) Test 10/30/18 11:57 10/30/18 15:15 10/30/18 18:34 10/30/18 20:24 O2 Saturation 94 % (92-99) Arterial Blood pH 7.35 (7.35-7.45) Arterial Blood pCO2 at Patient Temp 80 mmHg (35-46) Arterial Blood pO2 at Patient Temp 73 mmHg (65-108) Arterial Blood HCO3 43 mmol/L (21-28) Arterial Blood Base Excess 13 mmol/L (-3-3) Oxyhemoglobin 92.5 % Methemoglobin 0.3 % (0.0-1.9) Carbon Monoxide, Quantitative 0.9 % (0.0-1.9) FiO2 44 Glucose (Fingerstick) 68 mg/dL (70-99) 91 mg/dL (70-99) 87 mg/dL (70-99) Test 10/31/18 07:24 Glucose (Fingerstick) 103 mg/dL (70-99) Laboratory Tests Test 10/30/18 11:57 10/30/18 15:15 10/30/18 18:34 10/30/18 20:24 O2 Saturation 94 % (92-99) Arterial Blood pH 7.35 (7.35-7.45) Arterial Blood pCO2 at Patient Temp 80 mmHg (35-46) Arterial Blood pO2 at Patient Temp 73 mmHg (65-108) Arterial Blood HCO3 43 mmol/L (21-28) Arterial Blood Base Excess 13 mmol/L (-3-3) Oxyhemoglobin 92.5 % Methemoglobin 0.3 % (0.0-1.9) Carbon Monoxide, Quantitative 0.9 % (0.0-1.9) FiO2 44 Glucose (Fingerstick) 68 mg/dL (70-99) 91 mg/dL (70-99) 87 mg/dL (70-99) Test 10/31/18 07:24 Glucose (Fingerstick) 103 mg/dL (70-99) Medications Current Medications Furosemide (Lasix) 60 mg 1X ONCE IVP Last administered on 10/28/18at 19:31; Start 10/28/18 at 19:15; Stop 10/28/18 at 19:16; Status DC Iohexol (Omnipaque 350 Mg/ml) 100 ml 1X ONCE IV Last administered on 10/28/18at 21:15; Start 10/28/18 at 21:15; Stop 10/28/18 at 21:16; Status DC Info (CONTRAST GIVEN -- Rx MONITORING) 1 each PRN DAILY PRN MC SEE COMMENTS; Start 10/28/18 at 21:15; Stop 10/30/18 at 21:14; Status DC Ondansetron HCl (Zofran) 4 mg PRN Q8HRS PRN IV NAUSEA/VOMITING 1ST CHOICE; Start 10/28/18 at 22:15; Stop 10/29/18 at 22:14; Status DC Morphine Sulfate (Morphine Sulfate) 2 mg PRN Q2HR PRN IV SEVERE PAIN; Start 10/28/18 at 22:15; Stop 10/29/18 at 22:14; Status DC Acetaminophen (Tylenol) 650 mg PRN Q4HRS PRN PO FEVER; Start 10/28/18 at 22:15; Stop 10/29/18 at 22:14; Status DC Hydralazine HCl (Apresoline Inj) 10 mg 1X ONCE IVP Last administered on 10/29/18at 00:32; Start 10/29/18 at 00:30; Stop 10/29/18 at 00:31; Status DC Perflutren Protein Type A Microsphe (Optison) 0.66 mg STK-MED ONCE IV ; Start 10/29/18 at 10:54; Stop 10/29/18 at 10:55; Status DC Furosemide (Lasix) 40 mg BID92 IVP Last administered on 10/31/18at 09:57; Start 10/29/18 at 11:00 Glimepiride (Amaryl) 2 mg DAILY08 PO Last administered on 10/31/18at 09:55; Start 10/29/18 at 17:00 Metformin HCl (Glucophage Xr) 500 mg DAILYWBKFT PO ; Start 11/01/18 at 08:00 Enoxaparin Sodium (Lovenox Per Pharmacy Prophylaxis Dosing) 1 each PRN DAILY P RN MC SEE COMMENTS; Start 10/29/18 at 14:45 Enoxaparin Sodium (Lovenox 60mg Syringe) 60 mg Q12HR SQ Last administered on 10/31/18at 09:56; Start 10/29/18 at 21:00 Dextrose (Dextrose 50%-Water Syringe) 25 gm STK-MED ONCE IV ; Start 10/30/18 at 06:21; Stop 10/30/18 at 06:22; Status DC Dextrose (Dextrose 50%-Water Syringe) 25 gm 1X ONCE IV Last administered on 10/30/18at 07:05; Start 10/30/18 at 07:00; Stop 10/30/18 at 07:01; Status DC Perflutren Protein Type A Microsphe (Optison) 0.66 mg STK-MED ONCE IV ; Start 10/29/18 at 11:00; Stop 10/30/18 at 08:46; Status DC Active Scripts Active Metformin Hcl Er (Metformin Hcl) 500 Mg Tab.er.24h 500 Mg PO BIDWMEALS Lisinopril 5 Mg Tablet 1 Tab PO DAILY Norvasc (Amlodipine Besylate) 2.5 Mg Tablet 1 Tab PO DAILY Reported Amlodipine Besylate 5 Mg Tablet 5 Mg PO DAILY Metformin Hcl Er (Metformin Hcl) 500 Mg Tab.er.24h 500 Mg PO DAILYWBKFT Lisinopril-Hctz 20-12.5 Mg Tab (Lisinopril/Hydrochlorothiazide) 1 Each Tablet 1 Tab PO DAILY Amaryl (Glimepiride) 1 Mg Tablet 2 Tab PO DAILY Furosemide 40 Mg Tablet 40 Mg PO DAILY Potassium Chloride 20 Meq Tablet.er 20 Meq PO DAILY Vitals/I & O Vital Sign - Last 24 Hours 10/30/18 10/30/18 10/30/18 10/30/18 11:00 11:51 13:00 15:00 Temp 98.6 98.6 98.6 98.6 Pulse 100 94 Resp 20 19 B/P (MAP) 151/89 (109) 154/98 (116) Pulse Ox 97 97 98 96 O2 Delivery Room Air BiPAP/CPAP BiPAP/CPAP Nasal Cannula O2 Flow Rate 2.0 10/30/18 10/30/18 10/30/1819 15:50 19:06 19:35 22:54 Temp 98.5 98.8 98.5 98.8 Pulse 104 110 Resp 18 B/P (MAP) 117/75 (89) 119/76 (90) Pulse Ox 93 97 90 O2 Delivery Nasal Cannula Nasal Cannula Nasal Cannula O2 Flow Rate 6.0 5.0 5.0 10/30/18 10/31/18 10/31/18 10/31/18 23:49 03:09 03:59 07:00 Temp 98.5 98.2 98.5 98.2 Pulse 105 107 Resp 20 B/P (MAP) 146/83 (104) 108/59 (75) Pulse Ox 98 98 96 96 O2 Delivery BiPAP/CPAP BiPAP/CPAP BiPAP/CPAP Nasal Cannula O2 Flow Rate 5.0 10/31/18 08:14 O2 Delivery Nasal Cannula O2 Flow Rate 5.0 Intake and Output 10/30/18 10/30/18 10/31/18 15:00 23:00 07:00 Intake Total 500 ml Output Total 1200 ml 400 ml Balance -1200 ml -400 ml 500 ml VANDANA BRITO MD October 31, 2018 10:00
[2018-10-31 10:15] LABS: ALBUMIN 2.5 g/dL (3.4-5.0); ALBUMIN/GLOBULIN RATIO 0.6 (1.0-1.7); CALCIUM 8.9 mg/dL (8.5-10.1); CREATININE 0.8 mg/dL (0.7-1.3); GFR 119.7; TOTAL BILIRUBIN 1.1 mg/dL (0.2-1.0); TOTAL PROTEIN 6.4 g/dL (6.4-8.2)
[2018-10-31 11:00] VITALS: BP 139/85
--- NOTE | 2018-10-31 11:39 | PDOC ---
CARDIOLOGY PROGRESS NOTE SUBJECTIVE: He feels better. Still emotional about his current medical situation. Denies any angina. OBJECTIVE: Vital SIgns: Vital Signs Date Time Temp Pulse Resp B/P (MAP) Pulse Ox O2 Delivery O2 Flow Rate FiO2 10/31/18 08:14 Nasal Cannula 5.0 10/31/18 07:00 98.2 107 20 108/59 (75) 96 98.2 I & O Intake and Output 10/31/18 07:00 Intake Total 500 ml Output Total 1600 ml Balance -1100 ml Intake Oral 500 ml Output Urine Total 1600 ml # Voids 2 # Bowel Movements 2 Objective: morbidly obese bilateral wheezing 3+ edema normal heart sounds 3/6 systolc murmur CURRENT MEDICATIONS: Current Medications Medications (Trade) Dose Ordered Sig/Ayush Start Time Stop Time Status Last Admin Dose Admin Acetaminophen (Tylenol) 650 mg PRN Q4HRS PRN 10/28/18 22:15 10/29/18 22:14 DC Dextrose (Dextrose 50%-Water Syringe) 25 gm 1X ONCE 10/30/18 07:00 10/30/18 07:01 DC 10/30/18 07:05 25 GM Enoxaparin Sodium (Lovenox 60mg Syringe) 60 mg Q12HR 10/29/18 21:00 10/31/18 09:56 60 MG Enoxaparin Sodium (Lovenox Per Pharmacy Prophylaxis Dosing) 1 each PRN DAILY PRN 10/29/18 14:45 Furosemide (Lasix) 40 mg BID92 10/29/18 11:00 10/31/18 09:57 40 MG Glimepiride (Amaryl) 2 mg DAILY08 10/29/18 17:00 10/31/18 09:55 2 MG Hydralazine HCl (Apresoline Inj) 10 mg 1X ONCE 10/29/18 00:30 10/29/18 00:31 DC 10/29/18 00:32 10 MG Info (CONTRAST GIVEN -- Rx MONITORING) 1 each PRN DAILY PRN 10/28/18 21:15 10/30/18 21:14 DC Iohexol (Omnipaque 350 Mg/ml) 100 ml 1X ONCE 10/28/18 21:15 10/28/18 21:16 DC 10/28/18 21:15 100 ML Metformin HCl (Glucophage Xr) 500 mg DAILYWBKFT 11/01/18 08:00 Morphine Sulfate (Morphine Sulfate) 2 mg PRN Q2HR PRN 10/28/18 22:15 10/29/18 22:14 DC Ondansetron HCl (Zofran) 4 mg PRN Q8HRS PRN 10/28/18 22:15 10/29/18 22:14 DC Perflutren Protein Type A Microsphe (Optison) 0.66 mg STK-MED ONCE 10/29/18 11:00 10/30/18 08:46 DC DIAGNOSTIC TESTING: echo with moderate to severe pulm htn cr, hgb, plts stable ASSESSMENT: 1. Acute on chronic diastolic HF 2. Cor pulmonale, secondary pulm HTN 3. HTN 4. Obesity, hypoventilation 5. Acute on chronic hypercapneic resp failure. PLAN: 1. Continue diuresis. Goal of 2-3L net negative by a.m. 2. continue bipap at night. 3. Likely needs weight loss surgery, but has no insurance. RO DAILEY MD October 31, 2018 11:39
[2018-10-31 15:00] VITALS: BP 144/84
[2018-10-31 19:55] VITALS: BP 161/108
[2018-10-31 22:00] VITALS: BP 138/87
[2018-10-31 23:52] LABS: BILIRUBIN,URINE SMALL (NEG); CLARITY,URINE CLEAR; COLOR,URINE AMBER; NITRITE,URINE NEGATIVE (NEG); PROTEIN,URINE 100 mg/dL (NEG-TRACE)
[2018-10-31 23:59] LABS: BACTERIA,URINE 0 /HPF (0-FEW); RBC,URINE OCC /HPF (0-2); SQUAMOUS EPITHELIAL CELL,UR FEW /LPF; WBC,URINE OCC /HPF (0-4)
[2018-11-01] LABS: HYALINE CASTS, URINE FEW /HPF
[2018-11-01 03:48] VITALS: BP 171/101
--- NOTE | 2018-11-01 04:00 | NUR ---
Pt had 22 beat run of v-tach while sleeping. VS remain stable. Pt denies SOA or CP. Will notify cardiology in a.m.
[2018-11-01 07:00] VITALS: BP 130/78
--- NOTE | 2018-11-01 07:42 | PDOC ---
PULMONARY PROGRESS NOTES Subjective sob better, used bipap last night, has occ cough, not on home 02, Vitals Vital Signs Date Time Temp Pulse Resp B/P (MAP) Pulse Ox O2 Delivery O2 Flow Rate FiO2 11/01/18 03:48 99.0 97 22 171/101 (124) 94 Nasal Cannula 5.0 99.0 ROS: No Nausea, No Chest Pain, No Abdominal Pain, No Increase Cough Lungs: Crackles Cardiovascular: S1, S2 Abdomen: Other (0BESE) Neuro Exam: Alert Extremities: Other (EDEMA) Skin: Warm Labs Laboratory Tests Test 10/30/18 11:57 10/30/18 15:15 10/30/18 18:34 10/30/18 20:24 O2 Saturation 94 % (92-99) Arterial Blood pH 7.35 (7.35-7.45) Arterial Blood pCO2 at Patient Temp 80 mmHg (35-46) Arterial Blood pO2 at Patient Temp 73 mmHg (65-108) Arterial Blood HCO3 43 mmol/L (21-28) Arterial Blood Base Excess 13 mmol/L (-3-3) Oxyhemoglobin 92.5 % Methemoglobin 0.3 % (0.0-1.9) Carbon Monoxide, Quantitative 0.9 % (0.0-1.9) FiO2 44 Glucose (Fingerstick) 68 mg/dL (70-99) 91 mg/dL (70-99) 87 mg/dL (70-99) Test 10/31/18 07:24 10/31/18 09:25 10/31/18 09:35 10/31/18 11:10 Glucose (Fingerstick) 103 mg/dL (70-99) 121 mg/dL (70-99) Sodium Level 144 mmol/L (136-145) Potassium Level 4.0 mmol/L (3.5-5.1) Chloride Level 102 mmol/L (98-107) Carbon Dioxide Level 42 mmol/L (21-32) Anion Gap 0 (6-14) Blood Urea Nitrogen 18 mg/dL (8-26) Creatinine 0.8 mg/dL (0.7-1.3) Estimated GFR (Cockcroft-Gault) 119.7 BUN/Creatinine Ratio 23 (6-20) Glucose Level 132 mg/dL (70-99) Calcium Level 8.9 mg/dL (8.5-10.1) Total Bilirubin 1.1 mg/dL (0.2-1.0) Aspartate Amino Transf (AST/SGOT) 21 U/L (15-37) Alanine Aminotransferase (ALT/SGPT) 30 U/L (16-63) Alkaline Phosphatase 55 U/L (46-116) Total Protein 6.4 g/dL (6.4-8.2) Albumin 2.5 g/dL (3.4-5.0) Albumin/Globulin Ratio 0.6 (1.0-1.7) White Blood Count 5.1 x10^3/uL (4.0-11.0) Red Blood Count 4.34 x10^6/uL (4.30-5.70) Hemoglobin 11.7 g/dL (13.0-17.5) Hematocrit 37.2 % (39.0-53.0) Mean Corpuscular Volume 86 fL (79-100) Mean Corpuscular Hemoglobin 27 pg (25-35) Mean Corpuscular Hemoglobin Concent 32 g/dL (31-37) Red Cell Distribution Width 16.4 % (11.5-14.5) Platelet Count 223 x10^3/uL (140-400) Neutrophils (%) (Auto) 56 % (31-73) Lymphocytes (%) (Auto) 16 % (24-48) Monocytes (%) (Auto) 24 % (0-9) Eosinophils (%) (Auto) 3 % (0-3) Basophils (%) (Auto) 1 % (0-3) Neutrophils # (Auto) 2.9 x10^3uL (1.8-7.7) Lymphocytes # (Auto) 0.8 x10^3/uL (1.0-4.8) Monocytes # (Auto) 1.3 x10^3/uL (0.0-1.1) Eosinophils # (Auto) 0.1 x10^3/uL (0.0-0.7) Basophils # (Auto) 0.0 x10^3/uL (0.0-0.2) Test 10/31/18 17:11 10/31/18 20:23 10/31/18 23:30 Glucose (Fingerstick) 125 mg/dL (70-99) 128 mg/dL (70-99) Urine Collection Type Unknown Urine Color Ally Urine Clarity Clear Urine pH 6.0 Urine Specific [place] 1.020 Urine Protein 100 mg/dL (NEG-TRACE) Urine Glucose (UA) Negative mg/dL (NEG) Urine Ketones (Stick) Negative mg/dL (NEG) Urine Blood Negative (NEG) Urine Nitrite Negative (NEG) Urine Bilirubin Small (NEG) Urine Urobilinogen Dipstick 1.0 mg/dL (0.2 mg/dL) Urine Leukocyte Esterase Negative (NEG) Urine RBC Occ /HPF (0-2) Urine WBC Occ /HPF (0-4) Urine Squamous Epithelial Cells Few /LPF Urine Bacteria 0 /HPF (0-FEW) Urine Hyaline Casts Few /HPF Urine Mucus Mod /LPF Laboratory Tests Test 10/31/18 09:25 10/31/18 09:35 10/31/18 11:10 10/31/18 17:11 Sodium Level 144 mmol/L (136-145) Potassium Level 4.0 mmol/L (3.5-5.1) Chloride Level 102 mmol/L (98-107) Carbon Dioxide Level 42 mmol/L (21-32) Anion Gap 0 (6-14) Blood Urea Nitrogen 18 mg/dL (8-26) Creatinine 0.8 mg/dL (0.7-1.3) Estimated GFR (Cockcroft-Gault) 119.7 BUN/Creatinine Ratio 23 (6-20) Glucose Level 132 mg/dL (70-99) Calcium Level 8.9 mg/dL (8.5-10.1) Total Bilirubin 1.1 mg/dL (0.2-1.0) Aspartate Amino Transf (AST/SGOT) 21 U/L (15-37) Alanine Aminotransferase (ALT/SGPT) 30 U/L (16-63) Alkaline Phosphatase 55 U/L (46-116) Total Protein 6.4 g/dL (6.4-8.2) Albumin 2.5 g/dL (3.4-5.0) Albumin/Globulin Ratio 0.6 (1.0-1.7) White Blood Count 5.1 x10^3/uL (4.0-11.0) Red Blood Count 4.34 x10^6/uL (4.30-5.70) Hemoglobin 11.7 g/dL (13.0-17.5) Hematocrit 37.2 % (39.0-53.0) Mean Corpuscular Volume 86 fL (79-100) Mean Corpuscular Hemoglobin 27 pg (25-35) Mean Corpuscular Hemoglobin Concent 32 g/dL (31-37) Red Cell Distribution Width 16.4 % (11.5-14.5) Platelet Count 223 x10^3/uL (140-400) Neutrophils (%) (Auto) 56 % (31-73) Lymphocytes (%) (Auto) 16 % (24-48) Monocytes (%) (Auto) 24 % (0-9) Eosinophils (%) (Auto) 3 % (0-3) Basophils (%) (Auto) 1 % (0-3) Neutrophils # (Auto) 2.9 x10^3uL (1.8-7.7) Lymphocytes # (Auto) 0.8 x10^3/uL (1.0-4.8) Monocytes # (Auto) 1.3 x10^3/uL (0.0-1.1) Eosinophils # (Auto) 0.1 x10^3/uL (0.0-0.7) Basophils # (Auto) 0.0 x10^3/uL (0.0-0.2) Glucose (Fingerstick) 121 mg/dL (70-99) 125 mg/dL (70-99) Test 10/31/18 20:23 10/31/18 23:30 Glucose (Fingerstick) 128 mg/dL (70-99) Urine Collection Type Unknown Urine Color Ally Urine Clarity Clear Urine pH 6.0 Urine Specific [place] 1.020 Urine Protein 100 mg/dL (NEG-TRACE) Urine Glucose (UA) Negative mg/dL (NEG) Urine Ketones (Stick) Negative mg/dL (NEG) Urine Blood Negative (NEG) Urine Nitrite Negative (NEG) Urine Bilirubin Small (NEG) Urine Urobilinogen Dipstick 1.0 mg/dL (0.2 mg/dL) Urine Leukocyte Esterase Negative (NEG) Urine RBC Occ /HPF (0-2) Urine WBC Occ /HPF (0-4) Urine Squamous Epithelial Cells Few /LPF Urine Bacteria 0 /HPF (0-FEW) Urine Hyaline Casts Few /HPF Urine Mucus Mod /LPF Medications Active Scripts Medications Dose Route/Sig Max Daily Dose Days Date Category Amlodipine Besylate 5 Mg Tablet 5 Mg PO DAILY 10/29/18 Reported Metformin Hcl Er (Metformin Hcl) 500 Mg Tab.er.24h 500 Mg PO DAILYWBKFT 10/29/18 Reported Lisinopril-Hctz 20-12.5 Mg Tab (Lisinopril/Hydrochlorothiazide) 1 Each Tablet 1 Tab PO DAILY 10/29/18 Reported Amaryl (Glimepiride) 1 Mg Tablet 2 Tab PO DAILY 10/29/18 Reported Furosemide 40 Mg Tablet 40 Mg PO DAILY 10/29/18 Reported Potassium Chloride 20 Meq Tablet.er 20 Meq PO DAILY 10/29/18 Reported Metformin Hcl Er (Metformin Hcl) 500 Mg Tab.er.24h 500 Mg PO BIDWMEALS 11/29/17 Rx Lisinopril 5 Mg Tablet 1 Tab PO DAILY 11/29/17 Rx Norvasc (Amlodipine Besylate) 2.5 Mg Tablet 1 Tab PO DAILY 11/29/17 Rx Impression . IMPRESSION: 1. [id number] hypoxemic hypercapnic respiratory failure. 2. Morbid obesity. 3. Suspect obstructive sleep apnea/OHS. 4. Effusion, right greater than left. 5. Suspect chronic acute cor pulmonale. 6. Protein malnutrition, present upon admission. Plan . BIPAP qhs, setting reviewed dvt prophylaxis elevate hob [employer], monitor k, cr sleep study as out pt lose wt 02 titration, 6 min walk prior to discharge increase activity discussed w pt, rn CESAR TERRELL MD November 01, 2018 07:42
[2018-11-01 07:44] LABS: BASO % 1 % (0-3); EOS # 0.2 x10^3/uL (0.0-0.7); EOS % 4 % (0-3); HEMATOCRIT 37.3 % (39.0-53.0); HEMOGLOBIN 11.8 g/dL (13.0-17.5); LYMPH # 0.9 x10^3/uL (1.0-4.8); LYMPH % 20 % (24-48); MEAN CORPUSCULAR HEMOGLOBIN 27 pg (25-35); MEAN CORPUSCULAR HGB CONC 32 g/dL (31-37); MEAN CORPUSCULAR VOLUME 86 fL (79-100); MONO # 1.1 x10^3/uL (0.0-1.1); MONO % 25 % (0-9); NEUT # 2.2 x10^3uL (1.8-7.7); NEUT % 50 % (31-73); PLATELET COUNT 216 x10^3/uL (140-400); RED BLOOD COUNT 4.36 x10^6/uL (4.30-5.70); RED CELL DISTRIBUTION WIDTH 16.5 % (11.5-14.5); WHITE BLOOD COUNT 4.4 x10^3/uL (4.0-11.0)
[2018-11-01 08:04] LABS: ALBUMIN 2.5 g/dL (3.4-5.0); ALBUMIN/GLOBULIN RATIO 0.6 (1.0-1.7); CREATININE 0.8 mg/dL (0.7-1.3); GFR 119.7; POTASSIUM 3.9 mmol/L (3.5-5.1); TOTAL BILIRUBIN 1.1 mg/dL (0.2-1.0); TOTAL PROTEIN 6.9 g/dL (6.4-8.2)
--- NOTE | 2018-11-01 08:39 | PDOC ---
CARDIOLOGY PROGRESS NOTE SUBJECTIVE: No acute events Had one run of NSVT OBJECTIVE: Vital SIgns: Vital Signs Date Time Temp Pulse Resp B/P (MAP) Pulse Ox O2 Delivery O2 Flow Rate FiO2 11/01/18 03:48 99.0 97 22 171/101 (124) 94 Nasal Cannula 5.0 99.0 I & O Intake and Output 11/01/18 07:00 Intake Total 1450 ml Output Total 1000 ml Balance 450 ml Intake Oral 1450 ml Output Urine Total 1000 ml Objective: No significant changes to physical exam 2+ LE edema persists Decreased breath sounds with exp wheezing. Normal heart tones. CURRENT MEDICATIONS: Lasix 40mg IVP BID DIAGNOSTIC TESTING: Cr wnl Mg 2.0 K wnl ASSESSMENT: 1. Cor Pulmonale, secondary pulm HTN 2. Acute on chronic diastolic HF 3. Hypercapneic resp failure. PLAN: 1. Will add metolazone to lasix. 2. Give K and mag supplementation. Supportive care. Aim for more aggressive diuresis. Continue daily weights. RO DAILEY MD November 01, 2018 08:39
[2018-11-01] MEDS ORDERED: MAGNESIUM SULFATE 2GM 50 ML IV ONE (09:00)
[2018-11-01] MEDS ORDERED: POTASSIUM CHLORIDE 20 MEQ TABLET.ER. PO ONE (09:00)
[2018-11-01] MEDS: metFORMIN XR 500 MG TAB.ER.24H PO SCH (10:09)
[2018-11-01] MEDS: GLIMEPIRIDE 2 MG TABLET. PO SCH (10:10)
[2018-11-01] MEDS: metOLazone 2.5 MG TABLET PO SCH (10:10)
[2018-11-01] MEDS: FUROSEMIDE 40 MG/4 ML VIAL. IVP SCH ×2 (10:11→15:57)
[2018-11-01 11:00] VITALS: BP 125/84
--- NOTE | 2018-11-01 13:05 | PDOC ---
[employer] PROGRESS NOTE Chief Complaint Chief Complaint Past Medical History Cardiovascular: HTN, Hyperlipidemia Pulmonary: No pertinent hx CENTRAL NERVOUS SYSTEM: Other (No pertinent history) GI: No pertinent hx Heme/Onc: No pertinent hx Hepatobiliary: No pertinent hx Psych: No pertinent hx Musculoskeletal: Osteoarthritis Rheumatologic: No pertinent hx Infectious disease: No pertinent hx ENT: No pertinent hx Renal/: UTI, Other (phimoes, urinary retention) Endocrine: Diabetes (2) Dermatology: No pertinent hx Past Surgical History Past Surgical History: Total knee replacement (left knee) Family History Family History DM Social History Smoke: No ALCOHOL: none Drugs: None History of Present Illness History of Present Illness Patient seen and examined Patient in NAD Discussed with nurse Vitals Vitals Vital Signs Date Time Temp Pulse Resp B/P (MAP) Pulse Ox O2 Delivery O2 Flow Rate FiO2 11/01/18 07:00 97.8 99 16 130/78 (95) 91 Room Air 97.8 11/01/18 03:48 5.0 Physical Exam General: Alert, Oriented X3, Cooperative, No acute distress Heart: Regular rate Lungs: Crackles Abdomen: Normal bowel sounds Extremities: No cyanosis, Other (3-4+ bilateral Le pitting edema) Skin: No breakdown, Other (venous dermatitis/ phimosis) Labs Labs: Laboratory Tests Test 10/31/18 17:11 10/31/18 20:23 10/31/18 23:30 11/01/18 07:12 Glucose (Fingerstick) 125 mg/dL (70-99) 128 mg/dL (70-99) Urine Collection Type Unknown Urine Color Ally Urine Clarity Clear Urine pH 6.0 Urine Specific Crocker 1.020 Urine Protein 100 mg/dL (NEG-TRACE) Urine Glucose (UA) Negative mg/dL (NEG) Urine Ketones (Stick) Negative mg/dL (NEG) Urine Blood Negative (NEG) Urine Nitrite Negative (NEG) Urine Bilirubin Small (NEG) Urine Urobilinogen Dipstick 1.0 mg/dL (0.2 mg/dL) Urine Leukocyte Esterase Negative (NEG) Urine RBC Occ /HPF (0-2) Urine WBC Occ /HPF (0-4) Urine Squamous Epithelial Cells Few /LPF Urine Bacteria 0 /HPF (0-FEW) Urine Hyaline Casts Few /HPF Urine Mucus Mod /LPF White Blood Count 4.4 x10^3/uL (4.0-11.0) Red Blood Count 4.36 x10^6/uL (4.30-5.70) Hemoglobin 11.8 g/dL (13.0-17.5) Hematocrit 37.3 % (39.0-53.0) Mean Corpuscular Volume 86 fL (79-100) Mean Corpuscular Hemoglobin 27 pg (25-35) Mean Corpuscular Hemoglobin Concent 32 g/dL (31-37) Red Cell Distribution Width 16.5 % (11.5-14.5) Platelet Count 216 x10^3/uL (140-400) Neutrophils (%) (Auto) 50 % (31-73) Lymphocytes (%) (Auto) 20 % (24-48) Monocytes (%) (Auto) 25 % (0-9) Eosinophils (%) (Auto) 4 % (0-3) Basophils (%) (Auto) 1 % (0-3) Neutrophils # (Auto) 2.2 x10^3uL (1.8-7.7) Lymphocytes # (Auto) 0.9 x10^3/uL (1.0-4.8) Monocytes # (Auto) 1.1 x10^3/uL (0.0-1.1) Eosinophils # (Auto) 0.2 x10^3/uL (0.0-0.7) Basophils # (Auto) 0.0 x10^3/uL (0.0-0.2) Sodium Level 143 mmol/L (136-145) Potassium Level 3.9 mmol/L (3.5-5.1) Chloride Level 99 mmol/L (98-107) Carbon Dioxide Level 43 mmol/L (21-32) Anion Gap 1 (6-14) Blood Urea Nitrogen 15 mg/dL (8-26) Creatinine 0.8 mg/dL (0.7-1.3) Estimated GFR (Cockcroft-Gault) 119.7 BUN/Creatinine Ratio 19 (6-20) Glucose Level 95 mg/dL (70-99) Calcium Level 9.0 mg/dL (8.5-10.1) Total Bilirubin 1.1 mg/dL (0.2-1.0) Aspartate Amino Transf (AST/SGOT) 20 U/L (15-37) Alanine Aminotransferase (ALT/SGPT) 30 U/L (16-63) Alkaline Phosphatase 50 U/L (46-116) Total Protein 6.9 g/dL (6.4-8.2) Albumin 2.5 g/dL (3.4-5.0) Albumin/Globulin Ratio 0.6 (1.0-1.7) Test 11/01/18 08:07 11/01/18 12:05 Glucose (Fingerstick) 91 mg/dL (70-99) 125 mg/dL (70-99) Review of Systems Review of Systems L eye irritation- states he was poked in the eye Denies GLOVER Assessment and Plan Assessmemt and Plan Problems Medical Problems: (1) CHF (congestive heart failure) Status: Acute (2) Hypoxemia Status: Acute Assessment: Probable Acute on chronic Diastolic Heart Failure in setting of undiagnosed FLAKITO/UC HTN Acute on chronic heart failure. Probably diastolic dysfunction. DM2 Morbid obesity Probable FLAKITO SEVERE HYPERCAPNEA PCO2=98 phimosis // phallus has severe phimosis and mod swelling secondary to generalized third spacing of fluid. Plan: Cardiac monitoring Diurese- IV lasix BIPAP at night PT/OT Home meds Labs Podiatry referral Cards and Pulm following Code status: Full Comment Review of Relevant I have reviewed the following items neil (where applicable) has been applied. Labs Laboratory Tests Test 10/30/18 15:15 10/30/18 18:34 10/30/18 20:24 10/31/18 07:24 Glucose (Fingerstick) 68 mg/dL (70-99) 91 mg/dL (70-99) 87 mg/dL (70-99) 103 mg/dL (70-99) Test 10/31/18 09:25 10/31/18 09:35 10/31/18 11:10 10/31/18 17:11 Sodium Level 144 mmol/L (136-145) Potassium Level 4.0 mmol/L (3.5-5.1) Chloride Level 102 mmol/L (98-107) Carbon Dioxide Level 42 mmol/L (21-32) Anion Gap 0 (6-14) Blood Urea Nitrogen 18 mg/dL (8-26) Creatinine 0.8 mg/dL (0.7-1.3) Estimated GFR (Cockcroft-Gault) 119.7 BUN/Creatinine Ratio 23 (6-20) Glucose Level 132 mg/dL (70-99) Calcium Level 8.9 mg/dL (8.5-10.1) Total Bilirubin 1.1 mg/dL (0.2-1.0) Aspartate Amino Transf (AST/SGOT) 21 U/L (15-37) Alanine Aminotransferase (ALT/SGPT) 30 U/L (16-63) Alkaline Phosphatase 55 U/L (46-116) Total Protein 6.4 g/dL (6.4-8.2) Albumin 2.5 g/dL (3.4-5.0) Albumin/Globulin Ratio 0.6 (1.0-1.7) White Blood Count 5.1 x10^3/uL (4.0-11.0) Red Blood Count 4.34 x10^6/uL (4.30-5.70) Hemoglobin 11.7 g/dL (13.0-17.5) Hematocrit 37.2 % (39.0-53.0) Mean Corpuscular Volume 86 fL (79-100) Mean Corpuscular Hemoglobin 27 pg (25-35) Mean Corpuscular Hemoglobin Concent 32 g/dL (31-37) Red Cell Distribution Width 16.4 % (11.5-14.5) Platelet Count 223 x10^3/uL (140-400) Neutrophils (%) (Auto) 56 % (31-73) Lymphocytes (%) (Auto) 16 % (24-48) Monocytes (%) (Auto) 24 % (0-9) Eosinophils (%) (Auto) 3 % (0-3) Basophils (%) (Auto) 1 % (0-3) Neutrophils # (Auto) 2.9 x10^3uL (1.8-7.7) Lymphocytes # (Auto) 0.8 x10^3/uL (1.0-4.8) Monocytes # (Auto) 1.3 x10^3/uL (0.0-1.1) Eosinophils # (Auto) 0.1 x10^3/uL (0.0-0.7) Basophils # (Auto) 0.0 x10^3/uL (0.0-0.2) Glucose (Fingerstick) 121 mg/dL (70-99) 125 mg/dL (70-99) Test 10/31/18 20:23 10/31/18 23:30 11/01/18 07:12 11/01/18 08:07 Glucose (Fingerstick) 128 mg/dL (70-99) 91 mg/dL (70-99) Urine Collection Type Unknown Urine Color Ally Urine Clarity Clear Urine pH 6.0 Urine Specific Crocker 1.020 Urine Protein 100 mg/dL (NEG-TRACE) Urine Glucose (UA) Negative mg/dL (NEG) Urine Ketones (Stick) Negative mg/dL (NEG) Urine Blood Negative (NEG) Urine Nitrite Negative (NEG) Urine Bilirubin Small (NEG) Urine Urobilinogen Dipstick 1.0 mg/dL (0.2 mg/dL) Urine Leukocyte Esterase Negative (NEG) Urine RBC Occ /HPF (0-2) Urine WBC Occ /HPF (0-4) Urine Squamous Epithelial Cells Few /LPF Urine Bacteria 0 /HPF (0-FEW) Urine Hyaline Casts Few /HPF Urine Mucus Mod /LPF White Blood Count 4.4 x10^3/uL (4.0-11.0) Red Blood Count 4.36 x10^6/uL (4.30-5.70) Hemoglobin 11.8 g/dL (13.0-17.5) Hematocrit 37.3 % (39.0-53.0) Mean Corpuscular Volume 86 fL (79-100) Mean Corpuscular Hemoglobin 27 pg (25-35) Mean Corpuscular Hemoglobin Concent 32 g/dL (31-37) Red Cell Distribution Width 16.5 % (11.5-14.5) Platelet Count 216 x10^3/uL (140-400) Neutrophils (%) (Auto) 50 % (31-73) Lymphocytes (%) (Auto) 20 % (24-48) Monocytes (%) (Auto) 25 % (0-9) Eosinophils (%) (Auto) 4 % (0-3) Basophils (%) (Auto) 1 % (0-3) Neutrophils # (Auto) 2.2 x10^3uL (1.8-7.7) Lymphocytes # (Auto) 0.9 x10^3/uL (1.0-4.8) Monocytes # (Auto) 1.1 x10^3/uL (0.0-1.1) Eosinophils # (Auto) 0.2 x10^3/uL (0.0-0.7) Basophils # (Auto) 0.0 x10^3/uL (0.0-0.2) Sodium Level 143 mmol/L (136-145) Potassium Level 3.9 mmol/L (3.5-5.1) Chloride Level 99 mmol/L (98-107) Carbon Dioxide Level 43 mmol/L (21-32) Anion Gap 1 (6-14) Blood Urea Nitrogen 15 mg/dL (8-26) Creatinine 0.8 mg/dL (0.7-1.3) Estimated GFR (Cockcroft-Gault) 119.7 BUN/Creatinine Ratio 19 (6-20) Glucose Level 95 mg/dL (70-99) Calcium Level 9.0 mg/dL (8.5-10.1) Total Bilirubin 1.1 mg/dL (0.2-1.0) Aspartate Amino Transf (AST/SGOT) 20 U/L (15-37) Alanine Aminotransferase (ALT/SGPT) 30 U/L (16-63) Alkaline Phosphatase 50 U/L (46-116) Total Protein 6.9 g/dL (6.4-8.2) Albumin 2.5 g/dL (3.4-5.0) Albumin/Globulin Ratio 0.6 (1.0-1.7) Test 11/01/18 12:05 Glucose (Fingerstick) 125 mg/dL (70-99) Laboratory Tests Test 10/31/18 17:11 10/31/18 20:23 10/31/18 23:30 11/01/18 07:12 Glucose (Fingerstick) 125 mg/dL (70-99) 128 mg/dL (70-99) Urine Collection Type Unknown Urine Color Ally Urine Clarity Clear Urine pH 6.0 Urine Specific Crocker 1.020 Urine Protein 100 mg/dL (NEG-TRACE) Urine Glucose (UA) Negative mg/dL (NEG) Urine Ketones (Stick) Negative mg/dL (NEG) Urine Blood Negative (NEG) Urine Nitrite Negative (NEG) Urine Bilirubin Small (NEG) Urine Urobilinogen Dipstick 1.0 mg/dL (0.2 mg/dL) Urine Leukocyte Esterase Negative (NEG) Urine RBC Occ /HPF (0-2) Urine WBC Occ /HPF (0-4) Urine Squamous Epithelial Cells Few /LPF Urine Bacteria 0 /HPF (0-FEW) Urine Hyaline Casts Few /HPF Urine Mucus Mod /LPF White Blood Count 4.4 x10^3/uL (4.0-11.0) Red Blood Count 4.36 x10^6/uL (4.30-5.70) Hemoglobin 11.8 g/dL (13.0-17.5) Hematocrit 37.3 % (39.0-53.0) Mean Corpuscular Volume 86 fL (79-100) Mean Corpuscular Hemoglobin 27 pg (25-35) Mean Corpuscular Hemoglobin Concent 32 g/dL (31-37) Red Cell Distribution Width 16.5 % (11.5-14.5) Platelet Count 216 x10^3/uL (140-400) Neutrophils (%) (Auto) 50 % (31-73) Lymphocytes (%) (Auto) 20 % (24-48) Monocytes (%) (Auto) 25 % (0-9) Eosinophils (%) (Auto) 4 % (0-3) Basophils (%) (Auto) 1 % (0-3) Neutrophils # (Auto) 2.2 x10^3uL (1.8-7.7) Lymphocytes # (Auto) 0.9 x10^3/uL (1.0-4.8) Monocytes # (Auto) 1.1 x10^3/uL (0.0-1.1) Eosinophils # (Auto) 0.2 x10^3/uL (0.0-0.7) Basophils # (Auto) 0.0 x10^3/uL (0.0-0.2) Sodium Level 143 mmol/L (136-145) Potassium Level 3.9 mmol/L (3.5-5.1) Chloride Level 99 mmol/L (98-107) Carbon Dioxide Level 43 mmol/L (21-32) Anion Gap 1 (6-14) Blood Urea Nitrogen 15 mg/dL (8-26) Creatinine 0.8 mg/dL (0.7-1.3) Estimated GFR (Cockcroft-Gault) 119.7 BUN/Creatinine Ratio 19 (6-20) Glucose Level 95 mg/dL (70-99) Calcium Level 9.0 mg/dL (8.5-10.1) Total Bilirubin 1.1 mg/dL (0.2-1.0) Aspartate Amino Transf (AST/SGOT) 20 U/L (15-37) Alanine Aminotransferase (ALT/SGPT) 30 U/L (16-63) Alkaline Phosphatase 50 U/L (46-116) Total Protein 6.9 g/dL (6.4-8.2) Albumin 2.5 g/dL (3.4-5.0) Albumin/Globulin Ratio 0.6 (1.0-1.7) Test 11/01/18 08:07 11/01/18 12:05 Glucose (Fingerstick) 91 mg/dL (70-99) 125 mg/dL (70-99) Medications Current Medications Furosemide (Lasix) 60 mg 1X ONCE IVP Last administered on 10/28/18at 19:31; Start 10/28/18 at 19:15; Stop 10/28/18 at 19:16; Status DC Iohexol (Omnipaque 350 Mg/ml) 100 ml 1X ONCE IV Last administered on 10/28/18at 21:15; Start 10/28/18 at 21:15; Stop 10/28/18 at 21:16; Status DC Info (CONTRAST GIVEN -- Rx MONITORING) 1 each PRN DAILY PRN MC SEE COMMENTS; Start 10/28/18 at 21:15; Stop 10/30/18 at 21:14; Status DC Ondansetron HCl (Zofran) 4 mg PRN Q8HRS PRN IV NAUSEA/VOMITING 1ST CHOICE; Start 10/28/18 at 22:15; Stop 10/29/18 at 22:14; Status DC Morphine Sulfate (Morphine Sulfate) 2 mg PRN Q2HR PRN IV SEVERE PAIN; Start 10/28/18 at 22:15; Stop 10/29/18 at 22:14; Status DC Acetaminophen (Tylenol) 650 mg PRN Q4HRS PRN PO FEVER; Start 10/28/18 at 22:15; Stop 10/29/18 at 22:14; Status DC Hydralazine HCl (Apresoline Inj) 10 mg 1X ONCE IVP Last administered on 10/29/18at 00:32; Start 10/29/18 at 00:30; Stop 10/29/18 at 00:31; Status DC Perflutren Protein Type A Microsphe (Optison) 0.66 mg STK-MED ONCE IV ; Start 10/29/18 at 10:54; Stop 10/29/18 at 10:55; Status DC Furosemide (Lasix) 40 mg [id number] IVP Last administered on 11/01/18 10:11; Start 10/29/18 at 11:00 Glimepiride (Amaryl) 2 mg DAILY08 PO Last administered on 11/01/18at 10:10; Start 10/29/18 at 17:00 Metformin HCl (Glucophage Xr) 500 mg DAILYWBKFT PO Last administered on 11/01/18at 10:09; Start 11/01/18 at 08:00 Enoxaparin Sodium (Lovenox Per Pharmacy Prophylaxis Dosing) 1 each PRN DAILY PRN MC SEE COMMENTS; Start 10/29/18 at 14:45 Enoxaparin Sodium (Lovenox 60mg Syringe) 60 mg Q12HR SQ Last administered on 11/01/18at 10:11; Start 10/29/18 at 21:00 Dextrose (Dextrose 50%-Water Syringe) 25 gm STK-MED ONCE IV ; Start 10/30/18 at 06:21; Stop 10/30/18 at 06:22; Status DC Dextrose (Dextrose 50%-Water Syringe) 25 gm 1X ONCE IV Last administered on 10/30/18at 07:05; Start 10/30/18 at 07:00; Stop 10/30/18 at 07:01; Status DC Perflutren Protein Type A Microsphe (Optison) 0.66 mg STK-MED ONCE IV ; Start 10/29/18 at 11:00; Stop 10/30/18 at 08:46; Status DC Potassium Chloride (Klor-Con) 40 meq 1X ONCE PO Last administered on 11/01/18at 10:10; Start 11/01/18 at 09:00; Stop 11/01/18 at 09:01; Status DC Magnesium Sulfate 50 ml @ 25 mls/hr 1X ONCE IV Last administered on 11/01/18at 10:12; Start 11/01/18 at 09:00; Stop 11/01/18 at 10:59; Status DC Metolazone (Zaroxolyn) 5 mg DAILY PO Last administered on 11/01/18at 10:10; Start 11/01/18 at 09:00 Active Scripts Active Metformin Hcl Er (Metformin Hcl) 500 Mg Tab.er.24h 500 Mg PO BIDWMEALS Lisinopril 5 Mg Tablet 1 Tab PO DAILY Norvasc (Amlodipine Besylate) 2.5 Mg Tablet 1 Tab PO DAILY Reported Amlodipine Besylate 5 Mg Tablet 5 Mg PO DAILY Metformin Hcl Er (Metformin Hcl) 500 Mg Tab.er.24h 500 Mg PO DAILYWBKFT Lisinopril-Hctz 20-12.5 Mg Tab (Lisinopril/Hydrochlorothiazide) 1 Each Tablet 1 Tab PO DAILY Amaryl (Glimepiride) 1 Mg Tablet 2 Tab PO DAILY Furosemide 40 Mg Tablet 40 Mg PO DAILY Potassium Chloride 20 Meq Tablet.er 20 Meq PO DAILY Vitals/I & O Vital Sign - Last 24 Hours 10/31/18 10/31/18 10/31/18 10/31/18 15:00 16:00 19:55 20:00 Temp 98.8 99.0 98.8 99.0 Pulse 103 101 Resp 20 20 B/P (MAP) 144/84 (104) 161/108 (125) Pulse Ox 96 97 O2 Delivery Nasal Cannula Nasal Cannula Nasal Cannula Nasal Cannula O2 Flow Rate 5.0 5.0 5.0 5.0 10/31/18 11/01/18 11/01/18 11/01/18 22:00 00:00 02:39 03:48 Temp 98.3 99.0 98.3 99.0 Pulse 106 97 Resp 18 22 B/P (MAP) 138/87 (104) 171/101 (124) Pulse Ox 91 98 98 94 O2 Delivery Nasal Cannula BiPAP/CPAP BiPAP/CPAP Nasal Cannula O2 Flow Rate 5.0 5.0 11/01/18 07:00 Temp 97.8 97.8 Pulse 99 Resp 16 B/P (MAP) 130/78 (95) Pulse Ox 91 O2 Delivery Room Air Intake and Output 10/31/18 10/31/18 11/01/18 14:59 22:59 06:59 Intake Total 240 ml 400 ml 810 ml Output Total 400 ml 600 ml Balance -160 ml 400 ml 210 ml CASTLE,NIAL K III DO November 01, 2018 13:05
[2018-11-01 15:00] VITALS: BP 124/77
[2018-11-01 21:52] VITALS: BP 184/114
[2018-11-01 23:08] VITALS: BP 150/90
[2018-11-01] MEDS ORDERED: hydrALAZINE 20 MG/ML VIAL. IVP PRN (23:15)
[2018-11-02 03:50] VITALS: BP 121/83
[2018-11-02 04:44] LABS: BASO % 1 % (0-3); EOS # 0.2 x10^3/uL (0.0-0.7); EOS % 5 % (0-3); HEMATOCRIT 39.2 % (39.0-53.0); HEMOGLOBIN 12.5 g/dL (13.0-17.5); LYMPH # 1.1 x10^3/uL (1.0-4.8); LYMPH % 22 % (24-48); MEAN CORPUSCULAR HEMOGLOBIN 27 pg (25-35); MEAN CORPUSCULAR HGB CONC 32 g/dL (31-37); MEAN CORPUSCULAR VOLUME 86 fL (79-100); MONO # 1.2 x10^3/uL (0.0-1.1); MONO % 25 % (0-9); NEUT # 2.4 x10^3uL (1.8-7.7); NEUT % 48 % (31-73); PLATELET COUNT 223 x10^3/uL (140-400); RED BLOOD COUNT 4.58 x10^6/uL (4.30-5.70); RED CELL DISTRIBUTION WIDTH 16.3 % (11.5-14.5); WHITE BLOOD COUNT 4.9 x10^3/uL (4.0-11.0)
[2018-11-02 05:18] LABS: CALCIUM 9.5 mg/dL (8.5-10.1); CREATININE 0.7 mg/dL (0.7-1.3); GFR 139.7; POTASSIUM 3.8 mmol/L (3.5-5.1)
[2018-11-02 07:00] VITALS: BP 124/79
--- NOTE | 2018-11-02 08:30 | PDOC ---
PROGRESS NOTES Chief Complaint Chief Complaint [id number] hypoxemic hypercapnic respiratory failure. Morbid obesity. Suspect obstructive sleep apnea/OHS. Pleural effusion, right greater than left. Suspect chronic acute cor pulmonale. Protein malnutrition, present upon admission. History of Present Illness History of Present Illness Mr Morris is a 58 yo M w/ PMHx OA, HTN, Hyperlipidemia, phimosis with urinary retention, Diabetes 2 admitted for shortness of breath, found in hypercapnic respiratory failure with acute CHF exacerbation, right pleural effusion. Seen by cardiology and pulmonology, started on aggressive diuresis and BIPAP. Patient seen and examined Patient in NAD. Used BIPAP last night. UOP has been excellent, K stable. Still very swollen, up to chair today, still not able to lay flat. D/w family bedside need for further diuresis. Vitals Vitals Vital Signs Date Time Temp Pulse Resp B/P (MAP) Pulse Ox O2 Delivery O2 Flow Rate FiO2 11/02/18 07:00 98.8 103 22 124/79 (94) 96 Nasal Cannula 5.0 98.8 Physical Exam General: Alert, Oriented X3, Cooperative, No acute distress Heart: Regular rate Lungs: Crackles Abdomen: Normal bowel sounds Extremities: No cyanosis, Other (3-4+ bilateral Le pitting edema) Skin: No breakdown, Other (venous dermatitis/ phimosis) Labs LABS Laboratory Tests Test 11/01/18 12:05 11/01/18 17:19 11/01/18 22:24 11/02/18 03:30 Glucose (Fingerstick) 125 mg/dL (70-99) 89 mg/dL (70-99) 123 mg/dL (70-99) White Blood Count 4.9 x10^3/uL (4.0-11.0) Red Blood Count 4.58 x10^6/uL (4.30-5.70) Hemoglobin 12.5 g/dL (13.0-17.5) Hematocrit 39.2 % (39.0-53.0) Mean Corpuscular Volume 86 fL (79-100) Mean Corpuscular Hemoglobin 27 pg (25-35) Mean Corpuscular Hemoglobin Concent 32 g/dL (31-37) Red Cell Distribution Width 16.3 % (11.5-14.5) Platelet Count 223 x10^3/uL (140-400) Neutrophils (%) (Auto) 48 % (31-73) Lymphocytes (%) (Auto) 22 % (24-48) Monocytes (%) (Auto) 25 % (0-9) Eosinophils (%) (Auto) 5 % (0-3) Basophils (%) (Auto) 1 % (0-3) Neutrophils # (Auto) 2.4 x10^3uL (1.8-7.7) Lymphocytes # (Auto) 1.1 x10^3/uL (1.0-4.8) Monocytes # (Auto) 1.2 x10^3/uL (0.0-1.1) Eosinophils # (Auto) 0.2 x10^3/uL (0.0-0.7) Basophils # (Auto) 0.0 x10^3/uL (0.0-0.2) Test 11/02/18 03:35 11/02/18 07:07 Sodium Level 142 mmol/L (136-145) Potassium Level 3.8 mmol/L (3.5-5.1) Chloride Level 98 mmol/L (98-107) Carbon Dioxide Level 43 mmol/L (21-32) Anion Gap 1 (6-14) Blood Urea Nitrogen 11 mg/dL (8-26) Creatinine 0.7 mg/dL (0.7-1.3) Estimated GFR (Cockcroft-Gault) 139.7 Glucose Level 74 mg/dL (70-99) Calcium Level 9.5 mg/dL (8.5-10.1) Glucose (Fingerstick) 90 mg/dL (70-99) Assessment and Plan Assessmemt and Plan Problems Medical Problems: (1) CHF (congestive heart failure) Status: Acute (2) Hypoxemia Status: Acute Comment Review of Relevant I have reviewed the following items neil (where applicable) has been applied. Labs Laboratory Tests Test 10/31/18 09:25 10/31/18 09:35 10/31/18 11:10 10/31/18 17:11 Sodium Level 144 mmol/L (136-145) Potassium Level 4.0 mmol/L (3.5-5.1) Chloride Level 102 mmol/L (98-107) Carbon Dioxide Level 42 mmol/L (21-32) Anion Gap 0 (6-14) Blood Urea Nitrogen 18 mg/dL (8-26) Creatinine 0.8 mg/dL (0.7-1.3) Estimated GFR (Cockcroft-Gault) 119.7 BUN/Creatinine Ratio 23 (6-20) Glucose Level 132 mg/dL (70-99) Calcium Level 8.9 mg/dL (8.5-10.1) Total Bilirubin 1.1 mg/dL (0.2-1.0) Aspartate Amino Transf (AST/SGOT) 21 U/L (15-37) Alanine Aminotransferase (ALT/SGPT) 30 U/L (16-63) Alkaline Phosphatase 55 U/L (46-116) Total Protein 6.4 g/dL (6.4-8.2) Albumin 2.5 g/dL (3.4-5.0) Albumin/Globulin Ratio 0.6 (1.0-1.7) White Blood Count 5.1 x10^3/uL (4.0-11.0) Red Blood Count 4.34 x10^6/uL (4.30-5.70) Hemoglobin 11.7 g/dL (13.0-17.5) Hematocrit 37.2 % (39.0-53.0) Mean Corpuscular Volume 86 fL (79-100) Mean Corpuscular Hemoglobin 27 pg (25-35) Mean Corpuscular Hemoglobin Concent 32 g/dL (31-37) Red Cell Distribution Width 16.4 % (11.5-14.5) Platelet Count 223 x10^3/uL (140-400) Neutrophils (%) (Auto) 56 % (31-73) Lymphocytes (%) (Auto) 16 % (24-48) Monocytes (%) (Auto) 24 % (0-9) Eosinophils (%) (Auto) 3 % (0-3) Basophils (%) (Auto) 1 % (0-3) Neutrophils # (Auto) 2.9 x10^3uL (1.8-7.7) Lymphocytes # (Auto) 0.8 x10^3/uL (1.0-4.8) Monocytes # (Auto) 1.3 x10^3/uL (0.0-1.1) Eosinophils # (Auto) 0.1 x10^3/uL (0.0-0.7) Basophils # (Auto) 0.0 x10^3/uL (0.0-0.2) Glucose (Fingerstick) 121 mg/dL (70-99) 125 mg/dL (70-99) Test 10/31/18 20:23 10/31/18 23:30 11/01/18 07:12 11/01/18 08:07 Glucose (Fingerstick) 128 mg/dL (70-99) 91 mg/dL (70-99) Urine Collection Type Unknown Urine Color Ally Urine Clarity Clear Urine pH 6.0 Urine Specific [place] 1.020 Urine Protein 100 mg/dL (NEG-TRACE) Urine Glucose (UA) Negative mg/dL (NEG) Urine Ketones (Stick) Negative mg/dL (NEG) Urine Blood Negative (NEG) Urine Nitrite Negative (NEG) Urine Bilirubin Small (NEG) Urine Urobilinogen Dipstick 1.0 mg/dL (0.2 mg/dL) Urine Leukocyte Esterase Negative (NEG) Urine RBC Occ /HPF (0-2) Urine WBC Occ /HPF (0-4) Urine Squamous Epithelial Cells Few /LPF Urine Bacteria 0 /HPF (0-FEW) Urine Hyaline Casts Few /HPF Urine Mucus Mod /LPF White Blood Count 4.4 x10^3/uL (4.0-11.0) Red Blood Count 4.36 x10^6/uL (4.30-5.70) Hemoglobin 11.8 g/dL (13.0-17.5) Hematocrit 37.3 % (39.0-53.0) Mean Corpuscular Volume 86 fL (79-100) Mean Corpuscular Hemoglobin 27 pg (25-35) Mean Corpuscular Hemoglobin Concent 32 g/dL (31-37) Red Cell Distribution Width 16.5 % (11.5-14.5) Platelet Count 216 x10^3/uL (140-400) Neutrophils (%) (Auto) 50 % (31-73) Lymphocytes (%) (Auto) 20 % (24-48) Monocytes (%) (Auto) 25 % (0-9) Eosinophils (%) (Auto) 4 % (0-3) Basophils (%) (Auto) 1 % (0-3) Neutrophils # (Auto) 2.2 x10^3uL (1.8-7.7) Lymphocytes # (Auto) 0.9 x10^3/uL (1.0-4.8) Monocytes # (Auto) 1.1 x10^3/uL (0.0-1.1) Eosinophils # (Auto) 0.2 x10^3/uL (0.0-0.7) Basophils # (Auto) 0.0 x10^3/uL (0.0-0.2) Sodium Level 143 mmol/L (136-145) Potassium Level 3.9 mmol/L (3.5-5.1) Chloride Level 99 mmol/L (98-107) Carbon Dioxide Level 43 mmol/L (21-32) Anion Gap 1 (6-14) Blood Urea Nitrogen 15 mg/dL (8-26) Creatinine 0.8 mg/dL (0.7-1.3) Estimated GFR (Cockcroft-Gault) 119.7 BUN/Creatinine Ratio 19 (6-20) Glucose Level 95 mg/dL (70-99) Calcium Level 9.0 mg/dL (8.5-10.1) Total Bilirubin 1.1 mg/dL (0.2-1.0) Aspartate Amino Transf (AST/SGOT) 20 U/L (15-37) Alanine Aminotransferase (ALT/SGPT) 30 U/L (16-63) Alkaline Phosphatase 50 U/L (46-116) Total Protein 6.9 g/dL (6.4-8.2) Albumin 2.5 g/dL (3.4-5.0) Albumin/Globulin Ratio 0.6 (1.0-1.7) Test 11/01/18 12:05 11/01/18 17:19 11/01/18 22:24 11/02/18 03:30 Glucose (Fingerstick) 125 mg/dL (70-99) 89 mg/dL (70-99) 123 mg/dL (70-99) White Blood Count 4.9 x10^3/uL (4.0-11.0) Red Blood Count 4.58 x10^6/uL (4.30-5.70) Hemoglobin 12.5 g/dL (13.0-17.5) Hematocrit 39.2 % (39.0-53.0) Mean Corpuscular Volume 86 fL (79-100) Mean Corpuscular Hemoglobin 27 pg (25-35) Mean Corpuscular Hemoglobin Concent 32 g/dL (31-37) Red Cell Distribution Width 16.3 % (11.5-14.5) Platelet Count 223 x10^3/uL (140-400) Neutrophils (%) (Auto) 48 % (31-73) Lymphocytes (%) (Auto) 22 % (24-48) Monocytes (%) (Auto) 25 % (0-9) Eosinophils (%) (Auto) 5 % (0-3) Basophils (%) (Auto) 1 % (0-3) Neutrophils # (Auto) 2.4 x10^3uL (1.8-7.7) Lymphocytes # (Auto) 1.1 x10^3/uL (1.0-4.8) Monocytes # (Auto) 1.2 x10^3/uL (0.0-1.1) Eosinophils # (Auto) 0.2 x10^3/uL (0.0-0.7) Basophils # (Auto) 0.0 x10^3/uL (0.0-0.2) Test 11/02/18 03:35 11/02/18 07:07 Sodium Level 142 mmol/L (136-145) Potassium Level 3.8 mmol/L (3.5-5.1) Chloride Level 98 mmol/L (98-107) Carbon Dioxide Level 43 mmol/L (21-32) Anion Gap 1 (6-14) Blood Urea Nitrogen 11 mg/dL (8-26) Creatinine 0.7 mg/dL (0.7-1.3) Estimated GFR (Cockcroft-Gault) 139.7 Glucose Level 74 mg/dL (70-99) Calcium Level 9.5 mg/dL (8.5-10.1) Glucose (Fingerstick) 90 mg/dL (70-99) Laboratory Tests Test 11/01/18 12:05 11/01/18 17:19 11/01/18 22:24 11/02/18 03:30 Glucose (Fingerstick) 125 mg/dL (70-99) 89 mg/dL (70-99) 123 mg/dL (70-99) White Blood Count 4.9 x10^3/uL (4.0-11.0) Red Blood Count 4.58 x10^6/uL (4.30-5.70) Hemoglobin 12.5 g/dL (13.0-17.5) Hematocrit 39.2 % (39.0-53.0) Mean Corpuscular Volume 86 fL (79-100) Mean Corpuscular Hemoglobin 27 pg (25-35) Mean Corpuscular Hemoglobin Concent 32 g/dL (31-37) Red Cell Distribution Width 16.3 % (11.5-14.5) Platelet Count 223 x10^3/uL (140-400) Neutrophils (%) (Auto) 48 % (31-73) Lymphocytes (%) (Auto) 22 % (24-48) Monocytes (%) (Auto) 25 % (0-9) Eosinophils (%) (Auto) 5 % (0-3) Basophils (%) (Auto) 1 % (0-3) Neutrophils # (Auto) 2.4 x10^3uL (1.8-7.7) Lymphocytes # (Auto) 1.1 x10^3/uL (1.0-4.8) Monocytes # (Auto) 1.2 x10^3/uL (0.0-1.1) Eosinophils # (Auto) 0.2 x10^3/uL (0.0-0.7) Basophils # (Auto) 0.0 x10^3/uL (0.0-0.2) Test 11/02/18 03:35 11/02/18 07:07 Sodium Level 142 mmol/L (136-145) Potassium Level 3.8 mmol/L (3.5-5.1) Chloride Level 98 mmol/L (98-107) Carbon Dioxide Level 43 mmol/L (21-32) Anion Gap 1 (6-14) Blood Urea Nitrogen 11 mg/dL (8-26) Creatinine 0.7 mg/dL (0.7-1.3) Estimated GFR (Cockcroft-Gault) 139.7 Glucose Level 74 mg/dL (70-99) Calcium Level 9.5 mg/dL (8.5-10.1) Glucose (Fingerstick) 90 mg/dL (70-99) Medications Current Medications Furosemide (Lasix) 60 mg 1X ONCE IVP Last administered on 10/28/18at 19:31; Start 10/28/18 at 19:15; Stop 10/28/18 at 19:16; Status DC Iohexol (Omnipaque 350 Mg/ml) 100 ml 1X ONCE IV Last administered on 10/28/18at 21:15; Start 10/28/18 at 21:15; Stop 10/28/18 at 21:16; Status DC Info (CONTRAST GIVEN -- Rx MONITORING) 1 each PRN DAILY PRN MC SEE COMMENTS; Start 10/28/18 at 21:15; Stop 10/30/18 at 21:14; Status DC Ondansetron HCl (Zofran) 4 mg PRN Q8HRS PRN IV NAUSEA/VOMITING 1ST CHOICE; Start 10/28/18 at 22:15; Stop 10/29/18 at 22:14; Status DC Morphine Sulfate (Morphine Sulfate) 2 mg PRN Q2HR PRN IV SEVERE PAIN; Start 10/28/18 at 22:15; Stop 10/29/18 at 22:14; Status DC Acetaminophen (Tylenol) 650 mg PRN Q4HRS PRN PO FEVER; Start 10/28/18 at 22:15; Stop 10/29/18 at 22:14; Status DC Hydralazine HCl (Apresoline Inj) 10 mg 1X ONCE IVP Last administered on 10/29/18at 00:32; Start 10/29/18 at 00:30; Stop 10/29/18 at 00:31; Status DC Perflutren Protein Type A Microsphe (Optison) 0.66 mg STK-MED ONCE IV ; Start 10/29/18 at 10:54; Stop 10/29/18 at 10:55; Status DC Furosemide (Lasix) 40 mg BID92 IVP Last administered on 11/01/18at 15:57; Start 10/29/18 at 11:00 Glimepiride (Amaryl) 2 mg DAILY08 PO Last administered on 11/01/18at 10:10; Start 10/29/18 at 17:00 Metformin HCl (Glucophage Xr) 500 mg DAILYWBKFT PO Last administered on 11/01/18at 10:09; Start 11/01/18 at 08:00 Enoxaparin Sodium (Lovenox Per Pharmacy Prophylaxis Dosing) 1 each PRN DAILY PRN MC SEE COMMENTS; Start 10/29/18 at 14:45 Enoxaparin Sodium (Lovenox 60mg Syringe) 60 mg Q12HR SQ Last administered on 11/01/18at 21:53; Start 10/29/18 at 21:00 Dextrose (Dextrose 50%-Water Syringe) 25 gm STK-MED ONCE IV ; Start 10/30/18 at 06:21; Stop 10/30/18 at 06:22; Status DC Dextrose (Dextrose 50%-Water Syringe) 25 gm 1X ONCE IV Last administered on 10/30/18at 07:05; Start 10/30/18 at 07:00; Stop 10/30/18 at 07:01; Status DC Perflutren Protein Type A Microsphe (Optison) 0.66 mg STK-MED ONCE IV ; Start 10/29/18 at 11:00; Stop 10/30/18 at 08:46; Status DC Potassium Chloride (Klor-Con) 40 meq 1X ONCE PO Last administered on 11/01/18at 10:10; Start 11/01/18 at 09:00; Stop 11/01/18 at 09:01; Status DC Magnesium Sulfate 50 ml @ 25 mls/hr 1X ONCE IV Last administered on 11/01/18at 10:12; Start 11/01/18 at 09:00; Stop 11/01/18 at 10:59; Status DC Metolazone (Zaroxolyn) 5 mg DAILY PO Last administered on 11/01/18at 10:10; Start 11/01/18 at 09:00 Hydralazine HCl (Apresoline Inj) 10 mg PRN Q4HRS PRN IVP ELEVATED BP, SEE COMMENTS Last administered on 11/01/18at 23:33; Start 11/01/18 at 23:15 Active Scripts Active Metformin Hcl Er (Metformin Hcl) 500 Mg Tab.er.24h 500 Mg PO BIDWMEALS Lisinopril 5 Mg Tablet 1 Tab PO DAILY Norvasc (Amlodipine Besylate) 2.5 Mg Tablet 1 Tab PO DAILY Reported Amlodipine Besylate 5 Mg Tablet 5 Mg PO DAILY Metformin Hcl Er (Metformin Hcl) 500 Mg Tab.er.24h 500 Mg PO DAILYWBKFT Lisinopril-Hctz 20-12.5 Mg Tab (Lisinopril/Hydrochlorothiazide) 1 Each Tablet 1 Tab PO DAILY Amaryl (Glimepiride) 1 Mg Tablet 2 Tab PO DAILY Furosemide 40 Mg Tablet 40 Mg PO DAILY Potassium Chloride 20 Meq Tablet.er 20 Meq PO DAILY Vitals/I & O Vital Sign - Last 24 Hours 11/01/18 11/01/18 11/01/18 11/01/18 11:00 15:00 19:00 20:00 Temp 97.9 97.9 97.9 97.9 Pulse 96 96 92 Resp 14 16 B/P (MAP) 125/84 (98) 124/77 (93) Pulse Ox 99 96 O2 Delivery Nasal Cannula Nasal Cannula Nasal Cannula O2 Flow Rate 5.0 5.0 5.0 11/01/18 11/01/18 11/01/18 11/02/18 21:52 23:08 23:33 01:25 Temp 97.9 98.3 97.9 98.3 Pulse 97 85 85 Resp 20 20 B/P (MAP) 184/114 (137) 150/90 (110) 184/114 Pulse Ox 96 96 98 O2 Delivery Nasal Cannula Nasal Cannula BiPAP/CPAP O2 Flow Rate 5.0 5.0 11/02/18 11/02/18 03:50 07:00 Temp 98.1 98.8 98.1 98.8 Pulse 99 103 Resp 20 22 B/P (MAP) 121/83 (96) 124/79 (94) Pulse Ox 99 96 O2 Delivery Nasal Cannula Nasal Cannula O2 Flow Rate 5.0 5.0 Intake and Output 11/01/18 11/01/18 11/02/18 14:59 22:59 06:59 Intake Total 236 ml 250 ml Output Total 200 ml 2400 ml 2250 ml Balance 36 ml -2400 ml -2000 ml Images CTPA - 1. Suboptimal PE study due to contrast bolus timing and breathing motion artifact. No central embolus. Laceration of segmental and subsegmental pulmonary arteries is limited. 2. Small to moderate volume right pleural effusion with consolidation in the right lung base which may be secondary to passive atelectasis from adjacent pl eural effusion or pneumonia. 3. Small volume perihepatic ascites, nonspecific. ANTONIO SAAVEDRA MD November 02, 2018 08:29
[2018-11-02] MEDS: metOLazone 2.5 MG TABLET PO SCH (08:33)
[2018-11-02] MEDS: GLIMEPIRIDE 2 MG TABLET. PO SCH (08:33)
[2018-11-02] MEDS: metFORMIN XR 500 MG TAB.ER.24H PO SCH (08:33)
[2018-11-02] MEDS: FUROSEMIDE 40 MG/4 ML VIAL. IVP SCH ×2 (08:34→14:48)
[2018-11-02 10:52] VITALS: BP 117/65
--- NOTE | 2018-11-02 14:07 | PDOC ---
CARDIOLOGY PROGRESS NOTE SUBJECTIVE: No acute events. Denies any pain. Still has dyspnea. OBJECTIVE: Vital SIgns: Vital Signs Date Time Temp Pulse Resp B/P (MAP) Pulse Ox O2 Delivery O2 Flow Rate FiO2 11/02/18 10:52 98.7 104 22 117/65 (82) 95 Nasal Cannula 5.0 98.7 I & O Intake and Output 11/02/18 07:00 Intake Total 486 ml Output Total 4850 ml Balance -4364 ml Intake Oral 486 ml Output Urine Total 4850 ml Objective: 2+ edema persists Left eye redness noted. heart tones regular. CURRENT MEDICATIONS: Current Medications Medications (Trade) Dose Ordered Sig/Ayush Start Time Stop Time Status Last Admin Dose Admin Acetaminophen (Tylenol) 650 mg PRN Q4HRS PRN 10/28/18 22:15 10/29/18 22:14 DC Dextrose (Dextrose 50%-Water Syringe) 25 gm 1X ONCE 10/30/18 07:00 10/30/18 07:01 DC 10/30/18 07:05 25 GM Enoxaparin Sodium (Lovenox 60mg Syringe) 60 mg Q12HR 10/29/18 21:00 11/02/18 08:34 60 MG Enoxaparin Sodium (Lovenox Per Pharmacy Prophylaxis Dosing) 1 each PRN DAILY PRN 10/29/18 14:45 Furosemide (Lasix) 40 mg BID92 10/29/18 11:00 11/02/18 08:34 40 MG Glimepiride (Amaryl) 2 mg DAILY08 10/29/18 17:00 11/02/18 08:33 2 MG Hydralazine HCl (Apresoline Inj) 10 mg PRN Q4HRS PRN 11/01/18 23:15 11/01/18 23:33 10 MG Info (CONTRAST GIVEN -- Rx MONITORING) 1 each PRN DAILY PRN 10/28/18 21:15 10/30/18 21:14 DC Iohexol (Omnipaque 350 Mg/ml) 100 ml 1X ONCE 10/28/18 21:15 10/28/18 21:16 DC 10/28/18 21:15 100 ML Lisinopril (Prinivil) 5 mg DAILY 11/02/18 14:00 Magnesium Sulfate 50 ml @ 25 mls/hr 1X ONCE 11/01/18 09:00 11/01/18 10:59 DC 11/01/18 10:12 25 MLS/HR Metformin HCl (Glucophage Xr) 500 mg DAILYWBKFT 11/01/18 08:00 11/02/18 08:33 500 MG Metolazone (Zaroxolyn) 5 mg DAILY 11/01/18 09:00 11/02/18 08:33 5 MG Morphine Sulfate (Morphine Sulfate) 2 mg PRN Q2HR PRN 10/28/18 22:15 10/29/18 22:14 DC Ondansetron HCl (Zofran) 4 mg PRN Q8HRS PRN 10/28/18 22:15 10/29/18 22:14 DC Perflutren Protein Type A Microsphe (Optison) 0.66 mg STK-MED ONCE 10/29/18 11:00 10/30/18 08:46 DC Potassium Chloride (Klor-Con) 40 meq 1X ONCE 11/01/18 09:00 11/01/18 09:01 DC 11/01/18 10:10 40 MEQ DIAGNOSTIC TESTING: Labs stable. Cr stable. ASSESSMENT: 1. Acute on chronic diastolic HF 2. Cor Pulmonale. PLAN: 1. continue same. 2. Needs social work eval for pt/ot and insurance. Aim for another 3-4 L negative overnight. Thanks. RO DAILEY MD November 02, 2018 14:07
[2018-11-02] MEDS: LISINOPRIL 5 MG TABLET. PO SCH (14:48)
[2018-11-02 14:58] VITALS: BP 127/85
--- NOTE | 2018-11-02 16:17 | PDOC ---
PULMONARY PROGRESS NOTES Subjective LESS SOA OFF BIPAP Vitals Vital Signs Date Time Temp Pulse Resp B/P (MAP) Pulse Ox O2 Delivery O2 Flow Rate FiO2 11/02/18 14:58 98.9 97 20 127/85 (99) 94 Nasal Cannula 5.0 98.9 ROS: No Nausea, No Chest Pain, No Abdominal Pain, No Increase Cough Lungs: Crackles Cardiovascular: S1, S2 Abdomen: Other (0BESE) Neuro Exam: Alert Extremities: Other (EDEMA) Skin: Warm Labs Laboratory Tests Test 10/31/18 17:11 10/31/18 20:23 10/31/18 23:30 11/01/18 07:12 Glucose (Fingerstick) 125 mg/dL (70-99) 128 mg/dL (70-99) Urine Collection Type Unknown Urine Color Ally Urine Clarity Clear Urine pH 6.0 Urine Specific [place] 1.020 Urine Protein 100 mg/dL (NEG-TRACE) Urine Glucose (UA) Negative mg/dL (NEG) Urine Ketones (Stick) Negative mg/dL (NEG) Urine Blood Negative (NEG) Urine Nitrite Negative (NEG) Urine Bilirubin Small (NEG) Urine Urobilinogen Dipstick 1.0 mg/dL (0.2 mg/dL) Urine Leukocyte Esterase Negative (NEG) Urine RBC Occ /HPF (0-2) Urine WBC Occ /HPF (0-4) Urine Squamous Epithelial Cells Few /LPF Urine Bacteria 0 /HPF (0-FEW) Urine Hyaline Casts Few /HPF Urine Mucus Mod /LPF White Blood Count 4.4 x10^3/uL (4.0-11.0) Red Blood Count 4.36 x10^6/uL (4.30-5.70) Hemoglobin 11.8 g/dL (13.0-17.5) Hematocrit 37.3 % (39.0-53.0) Mean Corpuscular Volume 86 fL (79-100) Mean Corpuscular Hemoglobin 27 pg (25-35) Mean Corpuscular Hemoglobin Concent 32 g/dL (31-37) Red Cell Distribution Width 16.5 % (11.5-14.5) Platelet Count 216 x10^3/uL (140-400) Neutrophils (%) (Auto) 50 % (31-73) Lymphocytes (%) (Auto) 20 % (24-48) Monocytes (%) (Auto) 25 % (0-9) Eosinophils (%) (Auto) 4 % (0-3) Basophils (%) (Auto) 1 % (0-3) Neutrophils # (Auto) 2.2 x10^3uL (1.8-7.7) Lymphocytes # (Auto) 0.9 x10^3/uL (1.0-4.8) Monocytes # (Auto) 1.1 x10^3/uL (0.0-1.1) Eosinophils # (Auto) 0.2 x10^3/uL (0.0-0.7) Basophils # (Auto) 0.0 x10^3/uL (0.0-0.2) Sodium Level 143 mmol/L (136-145) Potassium Level 3.9 mmol/L (3.5-5.1) Chloride Level 99 mmol/L (98-107) Carbon Dioxide Level 43 mmol/L (21-32) Anion Gap 1 (6-14) Blood Urea Nitrogen 15 mg/dL (8-26) Creatinine 0.8 mg/dL (0.7-1.3) Estimated GFR (Cockcroft-Gault) 119.7 BUN/Creatinine Ratio 19 (6-20) Glucose Level 95 mg/dL (70-99) Calcium Level 9.0 mg/dL (8.5-10.1) Total Bilirubin 1.1 mg/dL (0.2-1.0) Aspartate Amino Transf (AST/SGOT) 20 U/L (15-37) Alanine Aminotransferase (ALT/SGPT) 30 U/L (16-63) Alkaline Phosphatase 50 U/L (46-116) Total Protein 6.9 g/dL (6.4-8.2) Albumin 2.5 g/dL (3.4-5.0) Albumin/Globulin Ratio 0.6 (1.0-1.7) Test 11/01/18 08:07 11/01/18 12:05 11/01/18 17:19 11/01/18 22:24 Glucose (Fingerstick) 91 mg/dL (70-99) 125 mg/dL (70-99) 89 mg/dL (70-99) 123 mg/dL (70-99) Test 11/02/18 03:30 11/02/18 03:35 11/02/18 07:07 11/02/18 11:22 White Blood Count 4.9 x10^3/uL (4.0-11.0) Red Blood Count 4.58 x10^6/uL (4.30-5.70) Hemoglobin 12.5 g/dL (13.0-17.5) Hematocrit 39.2 % (39.0-53.0) Mean Corpuscular Volume 86 fL (79-100) Mean Corpuscular Hemoglobin 27 pg (25-35) Mean Corpuscular Hemoglobin Concent 32 g/dL (31-37) Red Cell Distribution Width 16.3 % (11.5-14.5) Platelet Count 223 x10^3/uL (140-400) Neutrophils (%) (Auto) 48 % (31-73) Lymphocytes (%) (Auto) 22 % (24-48) Monocytes (%) (Auto) 25 % (0-9) Eosinophils (%) (Auto) 5 % (0-3) Basophils (%) (Auto) 1 % (0-3) Neutrophils # (Auto) 2.4 x10^3uL (1.8-7.7) Lymphocytes # (Auto) 1.1 x10^3/uL (1.0-4.8) Monocytes # (Auto) 1.2 x10^3/uL (0.0-1.1) Eosinophils # (Auto) 0.2 x10^3/uL (0.0-0.7) Basophils # (Auto) 0.0 x10^3/uL (0.0-0.2) Sodium Level 142 mmol/L (136-145) Potassium Level 3.8 mmol/L (3.5-5.1) Chloride Level 98 mmol/L (98-107) Carbon Dioxide Level 43 mmol/L (21-32) Anion Gap 1 (6-14) Blood Urea Nitrogen 11 mg/dL (8-26) Creatinine 0.7 mg/dL (0.7-1.3) Estimated GFR (Cockcroft-Gault) 139.7 Glucose Level 74 mg/dL (70-99) Calcium Level 9.5 mg/dL (8.5-10.1) Glucose (Fingerstick) 90 mg/dL (70-99) 115 mg/dL (70-99) Test 11/02/18 11:36 Glucose (Fingerstick) 125 mg/dL (70-99) Laboratory Tests Test 11/01/18 17:19 11/01/18 22:24 11/02/18 03:30 11/02/18 03:35 Glucose (Fingerstick) 89 mg/dL (70-99) 123 mg/dL (70-99) White Blood Count 4.9 x10^3/uL (4.0-11.0) Red Blood Count 4.58 x10^6/uL (4.30-5.70) Hemoglobin 12.5 g/dL (13.0-17.5) Hematocrit 39.2 % (39.0-53.0) Mean Corpuscular Volume 86 fL (79-100) Mean Corpuscular Hemoglobin 27 pg (25-35) Mean Corpuscular Hemoglobin Concent 32 g/dL (31-37) Red Cell Distribution Width 16.3 % (11.5-14.5) Platelet Count 223 x10^3/uL (140-400) Neutrophils (%) (Auto) 48 % (31-73) Lymphocytes (%) (Auto) 22 % (24-48) Monocytes (%) (Auto) 25 % (0-9) Eosinophils (%) (Auto) 5 % (0-3) Basophils (%) (Auto) 1 % (0-3) Neutrophils # (Auto) 2.4 x10^3uL (1.8-7.7) Lymphocytes # (Auto) 1.1 x10^3/uL (1.0-4.8) Monocytes # (Auto) 1.2 x10^3/uL (0.0-1.1) Eosinophils # (Auto) 0.2 x10^3/uL (0.0-0.7) Basophils # (Auto) 0.0 x10^3/uL (0.0-0.2) Sodium Level 142 mmol/L (136-145) Potassium Level 3.8 mmol/L (3.5-5.1) Chloride Level 98 mmol/L (98-107) Carbon Dioxide Level 43 mmol/L (21-32) Anion Gap 1 (6-14) Blood Urea Nitrogen 11 mg/dL (8-26) Creatinine 0.7 mg/dL (0.7-1.3) Estimated GFR (Cockcroft-Gault) 139.7 Glucose Level 74 mg/dL (70-99) Calcium Level 9.5 mg/dL (8.5-10.1) Test 11/02/18 07:07 11/02/18 11:22 11/02/18 11:36 Glucose (Fingerstick) 90 mg/dL (70-99) 115 mg/dL (70-99) 125 mg/dL (70-99) Medications Active Scripts Medications Dose Route/Sig Max Daily Dose Days Date Category Amlodipine Besylate 5 Mg Tablet 5 Mg PO DAILY 10/29/18 Reported Metformin Hcl Er (Metformin Hcl) 500 Mg Tab.er.24h 500 Mg PO [id number] 10/29/18 Reported Lisinopril-Hctz 20-12.5 Mg Tab (Lisinopril/Hydrochlorothiazide) 1 Each Tablet 1 Tab PO DAILY 10/29/18 Reported Amaryl (Glimepiride) 1 Mg Tablet 2 Tab PO DAILY 10/29/18 Reported Furosemide 40 Mg Tablet 40 Mg PO DAILY 10/29/18 Reported Potassium Chloride 20 Meq Tablet.er 20 Meq PO DAILY 10/29/18 Reported Metformin Hcl Er (Metformin Hcl) 500 Mg Tab.er.24h 500 Mg PO BIDWMEALS 11/29/17 Rx Lisinopril 5 Mg Tablet 1 Tab PO DAILY 11/29/17 Rx Norvasc (Amlodipine Besylate) 2.5 Mg Tablet 1 Tab PO DAILY 11/29/17 Rx Impression . IMPRESSION: 1. Tkmty-bl-bzulwtm hypoxemic hypercapnic respiratory failure. 2. Morbid obesity. 3. Suspect obstructive sleep apnea/OHS. 4. Effusion, right greater than left. 5. Suspect chronic acute cor pulmonale. 6. Protein malnutrition, present upon admission. Plan . PT DIURESED 16 LBS WILL CHECK NOCT DESAT, 6 MIN WALK UNFORTUNATELY PT IS SELF INSURED DIFFICULT CASE TO MANAGE WILL NEED TO HAVE DME DONATE JACQUELIN ROCHA MD November 02, 2018 16:17
[2018-11-02 19:00] VITALS: BP 143/95
[2018-11-02 23:01] VITALS: BP 122/71
[2018-11-03 03:15] VITALS: BP 134/87
[2018-11-03 04:39] LABS: BASO % 1 % (0-3); EOS # 0.2 x10^3/uL (0.0-0.7); EOS % 5 % (0-3); HEMATOCRIT 38.6 % (39.0-53.0); HEMOGLOBIN 12.4 g/dL (13.0-17.5); LYMPH # 1.1 x10^3/uL (1.0-4.8); LYMPH % 23 % (24-48); MEAN CORPUSCULAR HEMOGLOBIN 27 pg (25-35); MEAN CORPUSCULAR HGB CONC 32 g/dL (31-37); MEAN CORPUSCULAR VOLUME 85 fL (79-100); MONO # 1.3 x10^3/uL (0.0-1.1); MONO % 28 % (0-9); NEUT % 44 % (31-73); PLATELET COUNT 201 x10^3/uL (140-400); RED BLOOD COUNT 4.54 x10^6/uL (4.30-5.70); RED CELL DISTRIBUTION WIDTH 16.2 % (11.5-14.5); WHITE BLOOD COUNT 4.7 x10^3/uL (4.0-11.0)
[2018-11-03 04:56] LABS: BLOOD UREA NITROGEN 12 mg/dL (8-26); CALCIUM 9.4 mg/dL (8.5-10.1); CARBON DIOXIDE 44 mmol/L (21-32); CHLORIDE 96 mmol/L (98-107); CREATININE 0.7 mg/dL (0.7-1.3); GFR 139.7; GLUCOSE 81 mg/dL (70-99); MAGNESIUM 1.9 mg/dL (1.8-2.4); POTASSIUM 3.5 mmol/L (3.5-5.1); SODIUM 140 mmol/L (136-145)
[2018-11-03 07:00] VITALS: BP 149/92
--- NOTE | 2018-11-03 07:40 | RAD ---
Portable chest, 11/02/2018: HISTORY: Dyspnea Comparison is made to a study from 10/28/2018. The heart is enlarged. The pulmonary vascularity is at the upper limits of normal. There is minimal hazy atelectasis/infiltrate right base. The lungs are otherwise clear. There is no evidence of pleural fluid. IMPRESSION: 1. Cardiomegaly with borderline vascular congestion. 2. Minimal right basilar atelectasis/infiltrate. Electronically signed by: Quentin Salinas MD (11/03/2018 7:37 AM) [facility]
--- NOTE | 2018-11-03 08:01 | PDOC ---
PROGRESS NOTES Chief Complaint Chief Complaint Obipg-xr-yygxopy hypoxemic hypercapnic respiratory failure. Morbid obesity. Suspect obstructive sleep apnea/OHS. Pleural effusion, right greater than left. Suspect chronic acute cor pulmonale. Protein malnutrition, present upon admission. History of Present Illness History of Present Illness Mr Morris is a 58 yo M w/ PMHx OA, HTN, Hyperlipidemia, phimosis with urinary retention, Diabetes 2 admitted for shortness of breath, found in hypercapnic respiratory failure with acute CHF exacerbation, right pleural effusion. Seen by cardiology and pulmonology, started on aggressive diuresis and BIPAP. Patient seen and examined Patient in NAD. Used BIPAP last night. UOP has been excellent, K low today Still very swollen, up to chair today, still not able to lay flat. D/w family bedside need for further diuresis. ABG consistent with border on contraction alkalosis, have d/w pulmonology. Will d/c zaroxyln, change furosemide to PO. Echo consistent with RVSP elevated, right ventricular hypertrophy - COR PULMONALE - he is permanently disabled and will likely need home O2 and fdc cardiac medications. Vitals Vitals Vital Signs Date Time Temp Pulse Resp B/P (MAP) Pulse Ox O2 Delivery O2 Flow Rate FiO2 11/03/18 07:08 Nasal Cannula 2.0 11/03/18 03:15 98.3 98 16 134/87 (103) 97 98.3 Physical Exam General: Alert, Oriented X3, Cooperative, No acute distress Heart: Regular rate Lungs: Crackles Abdomen: Normal bowel sounds Extremities: No cyanosis, Other (3-4+ bilateral Le pitting edema) Skin: No breakdown, Other (venous dermatitis/ phimosis) Labs LABS Laboratory Tests Test 11/02/18 11:22 11/02/18 11:36 11/02/18 16:50 11/02/18 20:29 Glucose (Fingerstick) 115 mg/dL (70-99) 125 mg/dL (70-99) 112 mg/dL (70-99) 154 mg/dL (70-99) Test 11/03/18 04:20 11/03/18 07:43 White Blood Count 4.7 x10^3/uL (4.0-11.0) Red Blood Count 4.54 x10^6/uL (4.30-5.70) Hemoglobin 12.4 g/dL (13.0-17.5) Hematocrit 38.6 % (39.0-53.0) Mean Corpuscular Volume 85 fL (79-100) Mean Corpuscular Hemoglobin 27 pg (25-35) Mean Corpuscular Hemoglobin Concent 32 g/dL (31-37) Red Cell Distribution Width 16.2 % (11.5-14.5) Platelet Count 201 x10^3/uL (140-400) Neutrophils (%) (Auto) 44 % (31-73) Lymphocytes (%) (Auto) 23 % (24-48) Monocytes (%) (Auto) 28 % (0-9) Eosinophils (%) (Auto) 5 % (0-3) Basophils (%) (Auto) 1 % (0-3) Neutrophils # (Auto) 2.0 x10^3uL (1.8-7.7) Lymphocytes # (Auto) 1.1 x10^3/uL (1.0-4.8) Monocytes # (Auto) 1.3 x10^3/uL (0.0-1.1) Eosinophils # (Auto) 0.2 x10^3/uL (0.0-0.7) Basophils # (Auto) 0.0 x10^3/uL (0.0-0.2) Sodium Level 140 mmol/L (136-145) Potassium Level 3.5 mmol/L (3.5-5.1) Chloride Level 96 mmol/L (98-107) Carbon Dioxide Level 44 mmol/L (21-32) Anion Gap (6-14) Blood Urea Nitrogen 12 mg/dL (8-26) Creatinine 0.7 mg/dL (0.7-1.3) Estimated GFR (Cockcroft-Gault) 139.7 Glucose Level 81 mg/dL (70-99) Calcium Level 9.4 mg/dL (8.5-10.1) Magnesium Level 1.9 mg/dL (1.8-2.4) Glucose (Fingerstick) 78 mg/dL (70-99) Assessment and Plan Assessmemt and Plan Problems Medical Problems: (1) CHF (congestive heart failure) Status: Acute (2) Hypoxemia Status: Acute Comment Review of Relevant I have reviewed the following items neil (where applicable) has been applied. Labs Laboratory Tests Test 11/01/18 08:07 11/01/18 12:05 11/01/18 17:19 11/01/18 22:24 Glucose (Fingerstick) 91 mg/dL (70-99) 125 mg/dL (70-99) 89 mg/dL (70-99) 123 mg/dL (70-99) Test 11/02/18 03:30 11/02/18 03:35 11/02/18 07:07 11/02/18 11:22 White Blood Count 4.9 x10^3/uL (4.0-11.0) Red Blood Count 4.58 x10^6/uL (4.30-5.70) Hemoglobin 12.5 g/dL (13.0-17.5) Hematocrit 39.2 % (39.0-53.0) Mean Corpuscular Volume 86 fL (79-100) Mean Corpuscular Hemoglobin 27 pg (25-35) Mean Corpuscular Hemoglobin Concent 32 g/dL (31-37) Red Cell Distribution Width 16.3 % (11.5-14.5) Platelet Count 223 x10^3/uL (140-400) Neutrophils (%) (Auto) 48 % (31-73) Lymphocytes (%) (Auto) 22 % (24-48) Monocytes (%) (Auto) 25 % (0-9) Eosinophils (%) (Auto) 5 % (0-3) Basophils (%) (Auto) 1 % (0-3) Neutrophils # (Auto) 2.4 x10^3uL (1.8-7.7) Lymphocytes # (Auto) 1.1 x10^3/uL (1.0-4.8) Monocytes # (Auto) 1.2 x10^3/uL (0.0-1.1) Eosinophils # (Auto) 0.2 x10^3/uL (0.0-0.7) Basophils # (Auto) 0.0 x10^3/uL (0.0-0.2) Sodium Level 142 mmol/L (136-145) Potassium Level 3.8 mmol/L (3.5-5.1) Chloride Level 98 mmol/L (98-107) Carbon Dioxide Level 43 mmol/L (21-32) Anion Gap 1 (6-14) Blood Urea Nitrogen 11 mg/dL (8-26) Creatinine 0.7 mg/dL (0.7-1.3) Estimated GFR (Cockcroft-Gault) 139.7 Glucose Level 74 mg/dL (70-99) Calcium Level 9.5 mg/dL (8.5-10.1) Glucose (Fingerstick) 90 mg/dL (70-99) 115 mg/dL (70-99) Test 11/02/18 11:36 11/02/18 16:50 11/02/18 20:29 11/03/18 04:20 Glucose (Fingerstick) 125 mg/dL (70-99) 112 mg/dL (70-99) 154 mg/dL (70-99) White Blood Count 4.7 x10^3/uL (4.0-11.0) Red Blood Count 4.54 x10^6/uL (4.30-5.70) Hemoglobin 12.4 g/dL (13.0-17.5) Hematocrit 38.6 % (39.0-53.0) Mean Corpuscular Volume 85 fL (79-100) Mean Corpuscular Hemoglobin 27 pg (25-35) Mean Corpuscular Hemoglobin Concent 32 g/dL (31-37) Red Cell Distribution Width 16.2 % (11.5-14.5) Platelet Count 201 x10^3/uL (140-400) Neutrophils (%) (Auto) 44 % (31-73) Lymphocytes (%) (Auto) 23 % (24-48) Monocytes (%) (Auto) 28 % (0-9) Eosinophils (%) (Auto) 5 % (0-3) Basophils (%) (Auto) 1 % (0-3) Neutrophils # (Auto) 2.0 x10^3uL (1.8-7.7) Lymphocytes # (Auto) 1.1 x10^3/uL (1.0-4.8) Monocytes # (Auto) 1.3 x10^3/uL (0.0-1.1) Eosinophils # (Auto) 0.2 x10^3/uL (0.0-0.7) Basophils # (Auto) 0.0 x10^3/uL (0.0-0.2) Sodium Level 140 mmol/L (136-145) Potassium Level 3.5 mmol/L (3.5-5.1) Chloride Level 96 mmol/L (98-107) Carbon Dioxide Level 44 mmol/L (21-32) Anion Gap (6-14) Blood Urea Nitrogen 12 mg/dL (8-26) Creatinine 0.7 mg/dL (0.7-1.3) Estimated GFR (Cockcroft-Gault) 139.7 Glucose Level 81 mg/dL (70-99) Calcium Level 9.4 mg/dL (8.5-10.1) Magnesium Level 1.9 mg/dL (1.8-2.4) Test 11/03/18 07:43 Glucose (Fingerstick) 78 mg/dL (70-99) Laboratory Tests Test 11/02/18 11:22 11/02/18 11:36 11/02/18 16:50 11/02/18 20:29 Glucose (Fingerstick) 115 mg/dL (70-99) 125 mg/dL (70-99) 112 mg/dL (70-99) 154 mg/dL (70-99) Test 11/03/18 04:20 11/03/18 07:43 White Blood Count 4.7 x10^3/uL (4.0-11.0) Red Blood Count 4.54 x10^6/uL (4.30-5.70) Hemoglobin 12.4 g/dL (13.0-17.5) Hematocrit 38.6 % (39.0-53.0) Mean Corpuscular Volume 85 fL (79-100) Mean Corpuscular Hemoglobin 27 pg (25-35) Mean Corpuscular Hemoglobin Concent 32 g/dL (31-37) Red Cell Distribution Width 16.2 % (11.5-14.5) Platelet Count 201 x10^3/uL (140-400) Neutrophils (%) (Auto) 44 % (31-73) Lymphocytes (%) (Auto) 23 % (24-48) Monocytes (%) (Auto) 28 % (0-9) Eosinophils (%) (Auto) 5 % (0-3) Basophils (%) (Auto) 1 % (0-3) Neutrophils # (Auto) 2.0 x10^3uL (1.8-7.7) Lymphocytes # (Auto) 1.1 x10^3/uL (1.0-4.8) Monocytes # (Auto) 1.3 x10^3/uL (0.0-1.1) Eosinophils # (Auto) 0.2 x10^3/uL (0.0-0.7) Basophils # (Auto) 0.0 x10^3/uL (0.0-0.2) Sodium Level 140 mmol/L (136-145) Potassium Level 3.5 mmol/L (3.5-5.1) Chloride Level 96 mmol/L (98-107) Carbon Dioxide Level 44 mmol/L (21-32) Anion Gap (6-14) Blood Urea Nitrogen 12 mg/dL (8-26) Creatinine 0.7 mg/dL (0.7-1.3) Estimated GFR (Cockcroft-Gault) 139.7 Glucose Level 81 mg/dL (70-99) Calcium Level 9.4 mg/dL (8.5-10.1) Magnesium Level 1.9 mg/dL (1.8-2.4) Glucose (Fingerstick) 78 mg/dL (70-99) Medications Current Medications Furosemide (Lasix) 60 mg 1X ONCE IVP Last administered on 10/28/18at 19:31; Start 10/28/18 at 19:15; Stop 10/28/18 at 19:16; Status DC Iohexol (Omnipaque 350 Mg/ml) 100 ml 1X ONCE IV Last administered on 10/28/18at 21:15; Start 10/28/18 at 21:15; Stop 10/28/18 at 21:16; Status DC Info (CONTRAST GIVEN -- Rx MONITORING) 1 each PRN DAILY PRN MC SEE COMMENTS; Start 10/28/18 at 21:15; Stop 10/30/18 at 21:14; Status DC Ondansetron HCl (Zofran) 4 mg PRN Q8HRS PRN IV NAUSEA/VOMITING 1ST CHOICE; Start 10/28/18 at 22:15; Stop 10/29/18 at 22:14; Status DC Morphine Sulfate (Morphine Sulfate) 2 mg PRN Q2HR PRN IV SEVERE PAIN; Start 10/28/18 at 22:15; Stop 10/29/18 at 22:14; Status DC Acetaminophen (Tylenol) 650 mg PRN Q4HRS PRN PO FEVER; Start 10/28/18 at 22:15; Stop 10/29/18 at 22:14; Status DC Hydralazine HCl (Apresoline Inj) 10 mg 1X ONCE IVP Last administered on 10/29/18at 00:32; Start 10/29/18 at 00:30; Stop 10/29/18 at 00:31; Status DC Perflutren Protein Type A Microsphe (Optison) 0.66 mg STK-MED ONCE IV ; Start 10/29/18 at 10:54; Stop 10/29/18 at 10:55; Status DC Furosemide (Lasix) 40 mg BID92 IVP Last administered on 11/02/18at 14:48; Start 10/29/18 at 11:00 Glimepiride (Amaryl) 2 mg DAILY08 PO Last administered on 11/02/18at 08:33; Start 10/29/18 at 17:00 Metformin HCl (Glucophage Xr) 500 mg DAILYWBKFT PO Last administered on 11/02/18at 08:33; Start 11/01/18 at 08:00 Enoxaparin Sodium (Lovenox Per Pharmacy Prophylaxis Dosing) 1 each PRN DAILY PRN MC SEE COMMENTS; Start 10/29/18 at 14:45 Enoxaparin Sodium (Lovenox 60mg Syringe) 60 mg Q12HR SQ Last administered on 11/02/18at 21:58; Start 10/29/18 at 21:00 Dextrose (Dextrose 50%-Water Syringe) 25 gm STK-MED ONCE IV ; Start 10/30/18 at 06:21; Stop 10/30/18 at 06:22; Status DC Dextrose (Dextrose 50%-Water Syringe) 25 gm 1X ONCE IV Last administered on 10/30/18at 07:05; Start 10/30/18 at 07:00; Stop 10/30/18 at 07:01; Status DC Perflutren Protein Type A Microsphe (Optison) 0.66 mg STK-MED ONCE IV ; Start 10/29/18 at 11:00; Stop 10/30/18 at 08:46; Status DC Potassium Chloride (Klor-Con) 40 meq 1X ONCE PO Last administered on 11/01/18at 10:10; Start 11/01/18 at 09:00; Stop 11/01/18 at 09:01; Status DC Magnesium Sulfate 50 ml @ 25 mls/hr 1X ONCE IV Last administered on 11/01/18at 10:12; Start 11/01/18 at 09:00; Stop 11/01/18 at 10:59; Status DC Metolazone (Zaroxolyn) 5 mg DAILY PO Last administered on 11/02/18at 08:33; Start 11/01/18 at 09:00 Hydralazine HCl (Apresoline Inj) 10 mg PRN Q4HRS PRN IVP ELEVATED BP, SEE COMMENTS Last administered on 11/01/18at 23:33; Start 11/01/18 at 23:15 Lisinopril (Prinivil) 5 mg DAILY PO Last administered on 11/02/18at 14:48; Start 11/02/18 at 14:00 Active Scripts Active Metformin Hcl Er (Metformin Hcl) 500 Mg Tab.er.24h 500 Mg PO BIDWMEALS Lisinopril 5 Mg Tablet 1 Tab PO DAILY Norvasc (Amlodipine Besylate) 2.5 Mg Tablet 1 Tab PO DAILY Reported Amlodipine Besylate 5 Mg Tablet 5 Mg PO DAILY Metformin Hcl Er (Metformin Hcl) 500 Mg Tab.er.24h 500 Mg PO DAILYWBKFT Lisinopril-Hctz 20-12.5 Mg Tab (Lisinopril/Hydrochlorothiazide) 1 Each Tablet 1 Tab PO DAILY Amaryl (Glimepiride) 1 Mg Tablet 2 Tab PO DAILY Furosemide 40 Mg Tablet 40 Mg PO DAILY Potassium Chloride 20 Meq Tablet.er 20 Meq PO DAILY Vitals/I & O Vital Sign - Last 24 Hours 11/02/18 11/02/18 11/02/18 11/02/18 10:52 14:48 14:58 19:00 Temp 98.7 98.9 98.6 98.7 98.9 98.6 Pulse 104 97 97 105 Resp 22 20 20 B/P (MAP) 117/65 (82) 127/85 127/85 (99) 143/95 (111) Pulse Ox 95 94 96 O2 Delivery Nasal Cannula Nasal Cannula Nasal Cannula O2 Flow Rate 5.0 5.0 5.0 11/02/18 11/03/18 11/03/18 23:01 03:15 07:08 Temp 98.2 98.3 98.2 98.3 Pulse 104 98 Resp 16 B/P (MAP) 122/71 (88) 134/87 (103) Pulse Ox 94 97 O2 Delivery Nasal Cannula Nasal Cannula Nasal Cannula O2 Flow Rate 5.0 5.0 2.0 Intake and Output 11/02/18 11/02/18 11/03/18 15:00 23:00 07:00 Intake Total 480 ml Output Total 2700 ml 2100 ml 400 ml Balance -2220 ml -2100 ml -400 ml Images CXR - 1. Cardiomegaly with borderline vascular congestion. 2. Minimal right basilar atelectasis/infiltrate. ANTONIO SAAVEDRA MD November 03, 2018 08:01
[2018-11-03] MEDS: metFORMIN XR 500 MG TAB.ER.24H PO SCH (08:26)
[2018-11-03] MEDS: LISINOPRIL 5 MG TABLET. PO SCH (08:26)
[2018-11-03] MEDS: GLIMEPIRIDE 2 MG TABLET. PO SCH (08:26)
[2018-11-03] MEDS: metOLazone 2.5 MG TABLET PO SCH (08:27)
[2018-11-03] MEDS: FUROSEMIDE 40 MG/4 ML VIAL. IVP SCH (08:27)
[2018-11-03] MEDS: POTASSIUM CHLORIDE 20 MEQ TABLET.ER. PO SCH (08:32)
[2018-11-03 08:40] LABS: BASE EXCESS ABG 18 mmol/L (-3-3); HCO3 ABG 47 mmol/L (21-28); PO2 ABG 60 mmHg (65-108); SAT O2 ABG 90 % (92-99)
[2018-11-03 09:38] LABS: FIO2 ABG 28; PCO2 ABG 75 mmHg (35-46)
--- NOTE | 2018-11-03 10:56 | CARD ---
MR#: [id number] Date of Study: 10/29/2018 Ordering Physician: BIJU MEAD, Referring Physician: BIJU MEAD Tech: Tiffany Walter APPROVED REPORT EXAM: Two-dimensional and M-mode echocardiogram with Doppler and color Doppler. Other Information Quality : AverageHR: 99bpm INDICATION Dyspnea 2D DIMENSIONS RVDd3.3 (2.9-3.5cm)Left Atrium(2D)4.5 (1.6-4.0cm) IVSd1.2 (0.7-1.1cm)Aortic Root(2D)3.7 (2.0-3.7cm) LVDd5.0 (3.9-5.9cm)LVOT Diameter2.3 (1.8-2.4cm) PWd1.2 (0.7-1.1cm)LVDs4.1 (2.5-4.0cm) FS (%) 17.4 %SV42.3 ml LVEF(%)36.1 (>50%) Aortic Valve AoV Peak Fabio.164.1cm/sAoV VTI26.3cm AO Peak GR.10.8mmHgLVOT VTI 11.12cm AO Mean GR.7mmHg TDI Lateral E' P. V7.34cm/sMedial E' P. V7.14cm/s Tricuspid Valve TR P. Bijihbzs193fi/sTR Peak Gr.36mmHg Pulmonary Vein S1 Gmutskrx11.9cm/sS2 Idhchusx79.40cm/s D2 Aiixenvz59.4cm/sPVa [id number] LEFT VENTRICLE The left ventricle is normal size. There is mild concentric left ventricular hypertrophy. The left ve ntricular systolic function is normal and the ejection fraction is within normal range. The Ejection Fraction is >55%. There is gross normal LV segmental wall motion. RIGHT VENTRICLE The right ventricle is moderately dilated. There is normal right ventricular wall thickness. RV Systo lic function is mildly reduced. ATRIA The left atrium is borderline dilated. The right atrium is moderately dilated. The interatrial septum bows toward left atrium consistent with elevated right atrial pressure. AORTIC VALVE The aortic valve is calcified and displays decreased opening. Doppler and Color Flow revealed no sign ificant aortic regurgitation. There is no significant aortic valvular stenosis. MITRAL VALVE The mitral valve is normal in structure and function. There is no evidence of mitral valve prolapse. There is no mitral valve stenosis. Doppler and Color Flow revealed no mitral valve regurgitation note d. TRICUSPID VALVE The tricuspid valve is normal in structure and function. Doppler and Color Flow revealed trace tricus pid regurgitation with an estimated PAP of 51 mmHg. There is mild-moderate pulmonary hypertension. Th ere is no tricuspid valve stenosis. PULMONIC VALVE The pulmonic valve is not well visualized. Doppler and Color Flow revealed no pulmonic valvular regur gitation. There is no pulmonic valvular stenosis. GREAT VESSELS The aortic root is normal in size. The IVC is dilated and collapses <50% with inspiration. PERICARDIAL EFFUSION There is a trace circumferential pericardial effusion. Critical Notification Critical Value: No <Conclusion> The left ventricular systolic function is normal and the ejection fraction is within normal range. Th e Ejection Fraction is >55%. There is gross normal LV segmental wall motion. The right ventricle is moderately dilated. RV Systolic function is mildly reduced. The interatrial septum bows toward left atrium consistent with elevated right atrial pressure. Doppler and Color Flow revealed trace tricuspid regurgitation with an estimated PAP of 51 mmHg. There is mild-moderate pulmonary hypertension. Signed by : Yuan Gonzalez, Electronically Approved : 10/29/2018 16:59:55
[2018-11-03 11:00] VITALS: BP 138/86
--- NOTE | 2018-11-03 11:51 | PDOC2 ---
CONSULT Date of Consult Date of Consult DATE: 11/03/18 TIME: 11:36 Reason for Consult Reason for Consult: Long and thick painful nails Identification/Chief Complaint Chief Complaint Patient reports long-painful nails. Source Source: Patient History of Present Illness Reason for Visit: Patient is a diabetic who relates that he has been unable to take care of his feet. Patient relates that he has long and thick, painful nails which he has not been able to take care of. Patient has swelling in both legs due to excessive fluid retention. Patient denies any trauma to the feet. Patient relates that he has occasional burning sensation in the feet. Past Medical History Cardiovascular: HTN, Hyperlipidemia Pulmonary: No pertinent hx CENTRAL NERVOUS SYSTEM: Other (No pertinent history) GI: No pertinent hx Heme/Onc: No pertinent hx Hepatobiliary: No pertinent hx Psych: No pertinent hx Musculoskeletal: Osteoarthritis Rheumatologic: No pertinent hx Infectious disease: No pertinent hx ENT: No pertinent hx Renal/: UTI, Other (phimoes, urinary retention) Endocrine: Diabetes (2) Dermatology: No pertinent hx Past Surgical History Past Surgical History: Total knee replacement (left knee) Social History No ALCOHOL: none Drugs: None Lives: with Family Current Problem List Problem List Problems Medical Problems: (1) CHF (congestive heart failure) Status: Acute (2) Hypoxemia Status: Acute Current Medications Current Medications Current Medications Furosemide (Lasix) 60 mg 1X ONCE IVP Last administered on 10/28/18at 19:31; Start 10/28/18 at 19:15; Stop 10/28/18 at 19:16; Status DC Iohexol (Omnipaque 350 Mg/ml) 100 ml 1X ONCE IV Last administered on 10/28/18at 21:15; Start 10/28/18 at 21:15; Stop 10/28/18 at 21:16; Status DC Info (CONTRAST GIVEN -- Rx MONITORING) 1 each PRN DAILY PRN MC SEE COMMENTS; Start 10/28/18 at 21:15; Stop 10/30/18 at 21:14; Status DC Ondansetron HCl (Zofran) 4 mg PRN Q8HRS PRN IV NAUSEA/VOMITING 1ST CHOICE; Start 10/28/18 at 22:15; Stop 10/29/18 at 22:14; Status DC Morphine Sulfate (Morphine Sulfate) 2 mg PRN Q2HR PRN IV SEVERE PAIN; Start 10/28/18 at 22:15; Stop 10/29/18 at 22:14; Status DC Acetaminophen (Tylenol) 650 mg PRN Q4HRS PRN PO FEVER; Start 10/28/18 at 22:15; Stop 10/29/18 at 22:14; Status DC Hydralazine HCl (Apresoline Inj) 10 mg 1X ONCE IVP Last administered on 10/29/18at 00:32; Start 10/29/18 at 00:30; Stop 10/29/18 at 00:31; Status DC Perflutren Protein Type A Microsphe (Optison) 0.66 mg STK-MED ONCE IV ; Start 10/29/18 at 10:54; Stop 10/29/18 at 10:55; Status DC Furosemide (Lasix) 40 mg BID92 IVP Last administered on 11/03/18at 08:27; Start 10/29/18 at 11:00 Glimepiride (Amaryl) 2 mg DAILY08 PO Last administered on 11/03/18at 08:26; Start 10/29/18 at 17:00 Metformin HCl (Glucophage Xr) 500 mg DAILYWBKFT PO Last administered on 11/03/18at 08:26; Start 11/01/18 at 08:00 Enoxaparin Sodium (Lovenox Per Pharmacy Prophylaxis Dosing) 1 each PRN DAILY PRN MC SEE COMMENTS; Start 10/29/18 at 14:45 Enoxaparin Sodium (Lovenox 60mg Syringe) 60 mg Q12HR SQ Last administered on 11/03/18at 08:27; Start 10/29/18 at 21:00 Dextrose (Dextrose 50%-Water Syringe) 25 gm STK-MED ONCE IV ; Start 10/30/18 at 06:21; Stop 10/30/18 at 06:22; Status DC Dextrose (Dextrose 50%-Water Syringe) 25 gm 1X ONCE IV Last administered on 10/30/18at 07:05; Start 10/30/18 at 07:00; Stop 10/30/18 at 07:01; Status DC Perflutren Protein Type A Microsphe (Optison) 0.66 mg STK-MED ONCE IV ; Start 10/29/18 at 11:00; Stop 10/30/18 at 08:46; Status DC Potassium Chloride (Klor-Con) 40 meq 1X ONCE PO Last administered on 11/01/18 10:10; Start 11/01/18 at 09:00; Stop 11/01/18 at 09:01; Status DC Magnesium Sulfate 50 ml @ 25 mls/hr 1X ONCE IV Last administered on 11/01/18at 10:12; Start 11/01/18 at 09:00; Stop 11/01/18 at 10:59; Status DC Metolazone (Zaroxolyn) 5 mg DAILY PO Last administered on 11/03/18 08:27; Start 11/01/18 at 09:00 Hydralazine HCl (Apresoline Inj) 10 mg PRN Q4HRS PRN IVP ELEVATED BP, SEE COMMENTS Last administered on 11/01/18at 23:33; Start 11/01/18 at 23:15 Lisinopril (Prinivil) 5 mg DAILY PO Last administered on 11/03/18 08:26; Start 11/02/18 at 14:00 Potassium Chloride (Klor-Con) 40 meq DAILY08 PO Last administered on 11/03/18at 08:32; Start 11/03/18 at 08:00 Active Scripts Active Metformin Hcl Er (Metformin Hcl) 500 Mg Tab.er.24h 500 Mg PO BIDWMEALS Lisinopril 5 Mg Tablet 1 Tab PO DAILY Norvasc (Amlodipine Besylate) 2.5 Mg Tablet 1 Tab PO DAILY Reported Amlodipine Besylate 5 Mg Tablet 5 Mg PO DAILY Metformin Hcl Er (Metformin Hcl) 500 Mg Tab.er.24h 500 Mg PO DAILYWBKFT Lisinopril-Hctz 20-12.5 Mg Tab (Lisinopril/Hydrochlorothiazide) 1 Each Tablet 1 Tab PO DAILY Amaryl (Glimepiride) 1 Mg Tablet 2 Tab PO DAILY Furosemide 40 Mg Tablet 40 Mg PO DAILY Potassium Chloride 20 Meq Tablet.er 20 Meq PO DAILY Allergies Allergies: Coded Allergies: No Known Drug Allergies (Unverified , 01/19/18) ROS Cardiovascular: yes Chest Pain, yes Palpitations, yes Orthopnea, yes Paroxysmal Noc. Dyspnea, yes Edema (BLE), yes Lt Headedness, yes Other Neurological: Yes Behavorial Changes, Yes Bowel/Bladder ControlChng, Yes Confusion, Yes Dizziness, Yes Gait Disturbance, Yes Headaches, Yes Impaired Coord/balance, Yes Memory Loss, Yes Numbness/Tingling, Yes Seizures, Yes Speech Problems, Yes Tremors, Yes Visual Changes, Yes Weakness, Yes Other (Burning in the legs / feet) Skin: Yes Dry Skin, Yes Eczema, Yes Hair Changes, Yes Lumps, Yes Mole Changes, Yes Mottling, Yes Nail Changes, Yes Pruritus, Yes Rash, Yes Skin Lesion Changes, Yes Other, Yes Acne Physical Exam General: Alert, Oriented X3, Cooperative Extremities: Other (+ Pitting edema BLE.) Skin: Other (Elongated, thickened dystrophic and discolored nails with subungal debris noted, right hallux and 2nd digits. No open lesions. No erythema noted. no HPKs noted.) Neuro: Other (Diminished sensation noted bilateral feet at the level of digits.) MUSCULOSKELETAL: Other (+ POP at the elongated and thickened nail sites.) Vitals VITALS Vital Signs Date Time Temp Pulse Resp B/P (MAP) Pulse Ox O2 Delivery O2 Flow Rate FiO2 11/03/18 11:00 98.5 93 16 138/86 (103) 4 Nasal Cannula 98.5 11/03/18 08:30 2.0 Labs Labs Laboratory Tests Test 11/01/18 12:05 11/01/18 17:19 11/01/18 22:24 11/02/18 03:30 Glucose (Fingerstick) 125 mg/dL (70-99) 89 mg/dL (70-99) 123 mg/dL (70-99) White Blood Count 4.9 x10^3/uL (4.0-11.0) Red Blood Count 4.58 x10^6/uL (4.30-5.70) Hemoglobin 12.5 g/dL (13.0-17.5) Hematocrit 39.2 % (39.0-53.0) Mean Corpuscular Volume 86 fL (79-100) Mean Corpuscular Hemoglobin 27 pg (25-35) Mean Corpuscular Hemoglobin Concent 32 g/dL (31-37) Red Cell Distribution Width 16.3 % (11.5-14.5) Platelet Count 223 x10^3/uL (140-400) Neutrophils (%) (Auto) 48 % (31-73) Lymphocytes (%) (Auto) 22 % (24-48) Monocytes (%) (Auto) 25 % (0-9) Eosinophils (%) (Auto) 5 % (0-3) Basophils (%) (Auto) 1 % (0-3) Neutrophils # (Auto) 2.4 x10^3uL (1.8-7.7) Lymphocytes # (Auto) 1.1 x10^3/uL (1.0-4.8) Monocytes # (Auto) 1.2 x10^3/uL (0.0-1.1) Eosinophils # (Auto) 0.2 x10^3/uL (0.0-0.7) Basophils # (Auto) 0.0 x10^3/uL (0.0-0.2) Test 11/02/18 03:35 11/02/18 07:07 11/02/18 11:22 11/02/18 11:36 Sodium Level 142 mmol/L (136-145) Potassium Level 3.8 mmol/L (3.5-5.1) Chloride Level 98 mmol/L (98-107) Carbon Dioxide Level 43 mmol/L (21-32) Anion Gap 1 (6-14) Blood Urea Nitrogen 11 mg/dL (8-26) Creatinine 0.7 mg/dL (0.7-1.3) Estimated GFR (Cockcroft-Gault) 139.7 Glucose Level 74 mg/dL (70-99) Calcium Level 9.5 mg/dL (8.5-10.1) Glucose (Fingerstick) 90 mg/dL (70-99) 115 mg/dL (70-99) 125 mg/dL (70-99) Test 11/02/18 16:50 11/02/18 20:29 11/03/18 04:20 11/03/18 07:05 Glucose (Fingerstick) 112 mg/dL (70-99) 154 mg/dL (70-99) White Blood Count 4.7 x10^3/uL (4.0-11.0) Red Blood Count 4.54 x10^6/uL (4.30-5.70) Hemoglobin 12.4 g/dL (13.0-17.5) Hematocrit 38.6 % (39.0-53.0) Mean Corpuscular Volume 85 fL (79-100) Mean Corpuscular Hemoglobin 27 pg (25-35) Mean Corpuscular Hemoglobin Concent 32 g/dL (31-37) Red Cell Distribution Width 16.2 % (11.5-14.5) Platelet Count 201 x10^3/uL (140-400) Neutrophils (%) (Auto) 44 % (31-73) Lymphocytes (%) (Auto) 23 % (24-48) Monocytes (%) (Auto) 28 % (0-9) Eosinophils (%) (Auto) 5 % (0-3) Basophils (%) (Auto) 1 % (0-3) Neutrophils # (Auto) 2.0 x10^3uL (1.8-7.7) Lymphocytes # (Auto) 1.1 x10^3/uL (1.0-4.8) Monocytes # (Auto) 1.3 x10^3/uL (0.0-1.1) Eosinophils # (Auto) 0.2 x10^3/uL (0.0-0.7) Basophils # (Auto) 0.0 x10^3/uL (0.0-0.2) Sodium Level 140 mmol/L (136-145) Potassium Level 3.5 mmol/L (3.5-5.1) Chloride Level 96 mmol/L (98-107) Carbon Dioxide Level 44 mmol/L (21-32) Anion Gap (6-14) Blood Urea Nitrogen 12 mg/dL (8-26) Creatinine 0.7 mg/dL (0.7-1.3) Estimated GFR (Cockcroft-Gault) 139.7 Glucose Level 81 mg/dL (70-99) Calcium Level 9.4 mg/dL (8.5-10.1) Magnesium Level 1.9 mg/dL (1.8-2.4) O2 Saturation 90 % (92-99) Arterial Blood pH 7.42 (7.35-7.45) Arterial Blood pCO2 at Patient Temp 75 mmHg (35-46) Arterial Blood pO2 at Patient Temp 60 mmHg (65-108) Arterial Blood HCO3 47 mmol/L (21-28) Arterial Blood Base Excess 18 mmol/L (-3-3) FiO2 28 Test 11/03/18 07:43 Glucose (Fingerstick) 78 mg/dL (70-99) Laboratory Tests Test 11/02/18 16:50 11/02/18 20:29 11/03/18 04:20 11/03/18 07:05 Glucose (Fingerstick) 112 mg/dL (70-99) 154 mg/dL (70-99) White Blood Count 4.7 x10^3/uL (4.0-11.0) Red Blood Count 4.54 x10^6/uL (4.30-5.70) Hemoglobin 12.4 g/dL (13.0-17.5) Hematocrit 38.6 % (39.0-53.0) Mean Corpuscular Volume 85 fL (79-100) Mean Corpuscular Hemoglobin 27 pg (25-35) Mean Corpuscular Hemoglobin Concent 32 g/dL (31-37) Red Cell Distribution Width 16.2 % (11.5-14.5) Platelet Count 201 x10^3/uL (140-400) Neutrophils (%) (Auto) 44 % (31-73) Lymphocytes (%) (Auto) 23 % (24-48) Monocytes (%) (Auto) 28 % (0-9) Eosinophils (%) (Auto) 5 % (0-3) Basophils (%) (Auto) 1 % (0-3) Neutrophils # (Auto) 2.0 x10^3uL (1.8-7.7) Lymphocytes # (Auto) 1.1 x10^3/uL (1.0-4.8) Monocytes # (Auto) 1.3 x10^3/uL (0.0-1.1) Eosinophils # (Auto) 0.2 x10^3/uL (0.0-0.7) Basophils # (Auto) 0.0 x10^3/uL (0.0-0.2) Sodium Level 140 mmol/L (136-145) Potassium Level 3.5 mmol/L (3.5-5.1) Chloride Level 96 mmol/L (98-107) Carbon Dioxide Level 44 mmol/L (21-32) Anion Gap (6-14) Blood Urea Nitrogen 12 mg/dL (8-26) Creatinine 0.7 mg/dL (0.7-1.3) Estimated GFR (Cockcroft-Gault) 139.7 Glucose Level 81 mg/dL (70-99) Calcium Level 9.4 mg/dL (8.5-10.1) Magnesium Level 1.9 mg/dL (1.8-2.4) O2 Saturation 90 % (92-99) Arterial Blood pH 7.42 (7.35-7.45) Arterial Blood pCO2 at Patient Temp 75 mmHg (35-46) Arterial Blood pO2 at Patient Temp 60 mmHg (65-108) Arterial Blood HCO3 47 mmol/L (21-28) Arterial Blood Base Excess 18 mmol/L (-3-3) FiO2 28 Test 11/03/18 07:43 Glucose (Fingerstick) 78 mg/dL (70-99) Assessment/Plan Assessment/Plan Assessment and plan: 1. Onychomycosis: Debrided nails manually and electrically with relief in pain noted to the digits. 2. DM with neuropathy: Discussed in detail with patient about diabetic foot care and daily check of the feet for any issues - cuts / bruises / wounds / redness. Discussed with patient about sugar control and the complications of neuropathy and poor circulation. Patient to followup in clinic as needed. Will sign off. If any issue please contact anytime. Thank you. Be Fernandes ([phone]) BE PAZ DPM November 03, 2018 11:51
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
--- NOTE | 2018-11-03 12:49 | PDOC ---
PULMONARY PROGRESS NOTES Subjective LESS SOA OFF BIPAP Vitals Vital Signs Date Time Temp Pulse Resp B/P (MAP) Pulse Ox O2 Delivery O2 Flow Rate FiO2 11/03/18 11:00 98.5 93 16 138/86 (103) 4 Nasal Cannula 98.5 11/03/18 08:30 2.0 ROS: No Nausea, No Chest Pain, No Abdominal Pain, No Increase Cough Lungs: Crackles Cardiovascular: S1, S2 Abdomen: Other (0BESE) Neuro Exam: Alert Extremities: Other (EDEMA) Skin: Warm Labs Laboratory Tests Test 11/01/18 17:19 11/01/18 22:24 11/02/18 03:30 11/02/18 03:35 Glucose (Fingerstick) 89 mg/dL (70-99) 123 mg/dL (70-99) White Blood Count 4.9 x10^3/uL (4.0-11.0) Red Blood Count 4.58 x10^6/uL (4.30-5.70) Hemoglobin 12.5 g/dL (13.0-17.5) Hematocrit 39.2 % (39.0-53.0) Mean Corpuscular Volume 86 fL (79-100) Mean Corpuscular Hemoglobin 27 pg (25-35) Mean Corpuscular Hemoglobin Concent 32 g/dL (31-37) Red Cell Distribution Width 16.3 % (11.5-14.5) Platelet Count 223 x10^3/uL (140-400) Neutrophils (%) (Auto) 48 % (31-73) Lymphocytes (%) (Auto) 22 % (24-48) Monocytes (%) (Auto) 25 % (0-9) Eosinophils (%) (Auto) 5 % (0-3) Basophils (%) (Auto) 1 % (0-3) Neutrophils # (Auto) 2.4 x10^3uL (1.8-7.7) Lymphocytes # (Auto) 1.1 x10^3/uL (1.0-4.8) Monocytes # (Auto) 1.2 x10^3/uL (0.0-1.1) Eosinophils # (Auto) 0.2 x10^3/uL (0.0-0.7) Basophils # (Auto) 0.0 x10^3/uL (0.0-0.2) Sodium Level 142 mmol/L (136-145) Potassium Level 3.8 mmol/L (3.5-5.1) Chloride Level 98 mmol/L (98-107) Carbon Dioxide Level 43 mmol/L (21-32) Anion Gap 1 (6-14) Blood Urea Nitrogen 11 mg/dL (8-26) Creatinine 0.7 mg/dL (0.7-1.3) Estimated GFR (Cockcroft-Gault) 139.7 Glucose Level 74 mg/dL (70-99) Calcium Level 9.5 mg/dL (8.5-10.1) Test 11/02/18 07:07 11/02/18 11:22 11/02/18 11:36 11/02/18 16:50 Glucose (Fingerstick) 90 mg/dL (70-99) 115 mg/dL (70-99) 125 mg/dL (70-99) 112 mg/dL (70-99) Test 11/02/18 20:29 11/03/18 04:20 11/03/18 07:05 11/03/18 07:43 Glucose (Fingerstick) 154 mg/dL (70-99) 78 mg/dL (70-99) White Blood Count 4.7 x10^3/uL (4.0-11.0) Red Blood Count 4.54 x10^6/uL (4.30-5.70) Hemoglobin 12.4 g/dL (13.0-17.5) Hematocrit 38.6 % (39.0-53.0) Mean Corpuscular Volume 85 fL (79-100) Mean Corpuscular Hemoglobin 27 pg (25-35) Mean Corpuscular Hemoglobin Concent 32 g/dL (31-37) Red Cell Distribution Width 16.2 % (11.5-14.5) Platelet Count 201 x10^3/uL (140-400) Neutrophils (%) (Auto) 44 % (31-73) Lymphocytes (%) (Auto) 23 % (24-48) Monocytes (%) (Auto) 28 % (0-9) Eosinophils (%) (Auto) 5 % (0-3) Basophils (%) (Auto) 1 % (0-3) Neutrophils # (Auto) 2.0 x10^3uL (1.8-7.7) Lymphocytes # (Auto) 1.1 x10^3/uL (1.0-4.8) Monocytes # (Auto) 1.3 x10^3/uL (0.0-1.1) Eosinophils # (Auto) 0.2 x10^3/uL (0.0-0.7) Basophils # (Auto) 0.0 x10^3/uL (0.0-0.2) Sodium Level 140 mmol/L (136-145) Potassium Level 3.5 mmol/L (3.5-5.1) Chloride Level 96 mmol/L (98-107) Carbon Dioxide Level 44 mmol/L (21-32) Anion Gap (6-14) Blood Urea Nitrogen 12 mg/dL (8-26) Creatinine 0.7 mg/dL (0.7-1.3) Estimated GFR (Cockcroft-Gault) 139.7 Glucose Level 81 mg/dL (70-99) Calcium Level 9.4 mg/dL (8.5-10.1) Magnesium Level 1.9 mg/dL (1.8-2.4) O2 Saturation 90 % (92-99) Arterial Blood pH 7.42 (7.35-7.45) Arterial Blood pCO2 at Patient Temp 75 mmHg (35-46) Arterial Blood pO2 at Patient Temp 60 mmHg (65-108) Arterial Blood HCO3 47 mmol/L (21-28) Arterial Blood Base Excess 18 mmol/L (-3-3) FiO2 28 Test 11/03/18 11:52 Glucose (Fingerstick) 103 mg/dL (70-99) Laboratory Tests Test 11/02/18 16:50 11/02/18 20:29 11/03/18 04:20 11/03/18 07:05 Glucose (Fingerstick) 112 mg/dL (70-99) 154 mg/dL (70-99) White Blood Count 4.7 x10^3/uL (4.0-11.0) Red Blood Count 4.54 x10^6/uL (4.30-5.70) Hemoglobin 12.4 g/dL (13.0-17.5) Hematocrit 38.6 % (39.0-53.0) Mean Corpuscular Volume 85 fL (79-100) Mean Corpuscular Hemoglobin 27 pg (25-35) Mean Corpuscular Hemoglobin Concent 32 g/dL (31-37) Red Cell Distribution Width 16.2 % (11.5-14.5) Platelet Count 201 x10^3/uL (140-400) Neutrophils (%) (Auto) 44 % (31-73) Lymphocytes (%) (Auto) 23 % (24-48) Monocytes (%) (Auto) 28 % (0-9) Eosinophils (%) (Auto) 5 % (0-3) Basophils (%) (Auto) 1 % (0-3) Neutrophils # (Auto) 2.0 x10^3uL (1.8-7.7) Lymphocytes # (Auto) 1.1 x10^3/uL (1.0-4.8) Monocytes # (Auto) 1.3 x10^3/uL (0.0-1.1) Eosinophils # (Auto) 0.2 x10^3/uL (0.0-0.7) Basophils # (Auto) 0.0 x10^3/uL (0.0-0.2) Sodium Level 140 mmol/L (136-145) Potassium Level 3.5 mmol/L (3.5-5.1) Chloride Level 96 mmol/L (98-107) Carbon Dioxide Level 44 mmol/L (21-32) Anion Gap (6-14) Blood Urea Nitrogen 12 mg/dL (8-26) Creatinine 0.7 mg/dL (0.7-1.3) Estimated GFR (Cockcroft-Gault) 139.7 Glucose Level 81 mg/dL (70-99) Calcium Level 9.4 mg/dL (8.5-10.1) Magnesium Level 1.9 mg/dL (1.8-2.4) O2 Saturation 90 % (92-99) Arterial Blood pH 7.42 (7.35-7.45) Arterial Blood pCO2 at Patient Temp 75 mmHg (35-46) Arterial Blood pO2 at Patient Temp 60 mmHg (65-108) Arterial Blood HCO3 47 mmol/L (21-28) Arterial Blood Base Excess 18 mmol/L (-3-3) FiO2 28 Test 11/03/18 07:43 11/03/18 11:52 Glucose (Fingerstick) 78 mg/dL (70-99) 103 mg/dL (70-99) Medications Active Scripts Medications Dose Route/Sig Max Daily Dose Days Date Category Amlodipine Besylate 5 Mg Tablet 5 Mg PO DAILY 10/29/18 Reported Metformin Hcl Er (Metformin Hcl) 500 Mg Tab.er.24h 500 Mg PO DAILYWBKFT 10/29/18 Reported Lisinopril-Hctz 20-12.5 Mg Tab (Lisinopril/Hydrochlorothiazide) 1 Each Tablet 1 Tab PO DAILY 10/29/18 Reported Amaryl (Glimepiride) 1 Mg Tablet 2 Tab PO DAILY 10/29/18 Reported Furosemide 40 Mg Tablet 40 Mg PO DAILY 10/29/18 Reported Potassium Chloride 20 Meq Tablet.er 20 Meq PO DAILY 10/29/18 Reported Metformin Hcl Er (Metformin Hcl) 500 Mg Tab.er.24h 500 Mg PO BIDWMEALS 11/29/17 Rx Lisinopril 5 Mg Tablet 1 Tab PO DAILY 11/29/17 Rx Norvasc (Amlodipine Besylate) 2.5 Mg Tablet 1 Tab PO DAILY 11/29/17 Rx Impression . IMPRESSION: 1. Pqqop-et-sdhyktb hypoxemic hypercapnic respiratory failure. 2. Morbid obesity. 3. Suspect obstructive sleep apnea/OHS. 4. Effusion, right greater than left. 5. Suspect chronic acute cor pulmonale. 6. Protein malnutrition, present upon admission. Plan . PT DIURESED 16 LBS NOW WITH CONTRACTION ALKALOSIS CONSIDER CHANGE TO PO LASIX WILL CHECK NOCT DESAT, 6 MIN WALK UNFORTUNATELY PT IS SELF INSURED DIFFICULT CASE TO MANAGE WILL NEED TO HAVE DME DONATE 02 D/W PCP NOT MUCH TO ADD BANDAR POPE MD November 03, 2018 12:49
--- NOTE | 2018-11-03 13:38 | PDOC ---
GIDEON HOPKINS [employer] HAND 11/03/18 1338: CARDIO Progress Notes Date and Time Date of Service 11/03/18 Time of Evaluation 1210 Subjective Subjective: Other (SOA and edema better) Vitals Vitals Vital Signs Date Time Temp Pulse Resp B/P (MAP) Pulse Ox O2 Delivery O2 Flow Rate FiO2 11/03/18 11:00 98.5 93 16 138/86 (103) 4 Nasal Cannula 98.5 11/03/18 08:30 2.0 Weight Weight [ ] Input and Output Intake and Output Intake and Output 11/03/18 07:00 Intake Total 480 ml Output Total 5200 ml Balance -4720 ml Intake Oral 480 ml Output Urine Total 5200 ml Laboratory Labs Laboratory Tests Test 11/02/18 16:50 11/02/18 20:29 11/03/18 04:20 11/03/18 07:05 Glucose (Fingerstick) 112 mg/dL (70-99) 154 mg/dL (70-99) White Blood Count 4.7 x10^3/uL (4.0-11.0) Red Blood Count 4.54 x10^6/uL (4.30-5.70) Hemoglobin 12.4 g/dL (13.0-17.5) Hematocrit 38.6 % (39.0-53.0) Mean Corpuscular Volume 85 fL (79-100) Mean Corpuscular Hemoglobin 27 pg (25-35) Mean Corpuscular Hemoglobin Concent 32 g/dL (31-37) Red Cell Distribution Width 16.2 % (11.5-14.5) Platelet Count 201 x10^3/uL (140-400) Neutrophils (%) (Auto) 44 % (31-73) Lymphocytes (%) (Auto) 23 % (24-48) Monocytes (%) (Auto) 28 % (0-9) Eosinophils (%) (Auto) 5 % (0-3) Basophils (%) (Auto) 1 % (0-3) Neutrophils # (Auto) 2.0 x10^3uL (1.8-7.7) Lymphocytes # (Auto) 1.1 x10^3/uL (1.0-4.8) Monocytes # (Auto) 1.3 x10^3/uL (0.0-1.1) Eosinophils # (Auto) 0.2 x10^3/uL (0.0-0.7) Basophils # (Auto) 0.0 x10^3/uL (0.0-0.2) Sodium Level 140 mmol/L (136-145) Potassium Level 3.5 mmol/L (3.5-5.1) Chloride Level 96 mmol/L (98-107) Carbon Dioxide Level 44 mmol/L (21-32) Anion Gap (6-14) Blood Urea Nitrogen 12 mg/dL (8-26) Creatinine 0.7 mg/dL (0.7-1.3) Estimated GFR (Cockcroft-Gault) 139.7 Glucose Level 81 mg/dL (70-99) Calcium Level 9.4 mg/dL (8.5-10.1) Magnesium Level 1.9 mg/dL (1.8-2.4) O2 Saturation 90 % (92-99) Arterial Blood pH 7.42 (7.35-7.45) Arterial Blood pCO2 at Patient Temp 75 mmHg (35-46) Arterial Blood pO2 at Patient Temp 60 mmHg (65-108) Arterial Blood HCO3 47 mmol/L (21-28) Arterial Blood Base Excess 18 mmol/L (-3-3) FiO2 28 Test 11/03/18 07:43 11/03/18 11:52 Glucose (Fingerstick) 78 mg/dL (70-99) 103 mg/dL (70-99) Physical Exam HEENT: Neck Supple W Full Motion Chest: Symmetric LUNGS: Other (diminished bases) Heart: S1S2, RRR Abdomen: Soft N/T, Other (obese) Extremities: Other (2+ bilateral LE edema ) Neurology: alert, oriented, follow commands Assessment Assessment 1. Twdbn-xh-mvrchab respiratory failure 2. Acute on chronic diastolic HF; neg > 4.5 L overnight 3. Cor pulmonale 4. Hypertension; controlled 5. Morbid obesity. 6. Probable FLAKITO Recommendations Ongoing diuresis; converted to oral. SW following for services Supportive care RO DAILEY MD 11/03/18 1443: CARDIO Progress Notes Plan Plan Pt. seen and examined. Agree with above PLAN CONSULTANT note. Change to oral diuretics. Likely stable for DC tomorrow. Thanks. GIDEON HOPKINS APRN November 03, 2018 13:38 RO DAILEY MD November 03, 2018 14:43
[2018-11-03 15:00] VITALS: BP 137/76
--- NOTE | 2018-11-03 15:04 | NUR ---
SS following up with discharge planning. [facility]CF[facility] following for self pay status. Palliative care RN notified SS that pt needs Healthcare POA paperwork. SS met with pt in room and discussed Healthcare POA. Pt requested SS leave paper in room and he would notify SS when ready to complete. SS left form with pt.
[2018-11-03 19:39] VITALS: BP 152/92
[2018-11-03 22:55] VITALS: BP 130/89
[2018-11-04 03:39] VITALS: BP 143/75
[2018-11-04 07:00] VITALS: BP 115/77
--- NOTE | 2018-11-04 08:03 | PDOC ---
PROGRESS NOTES Chief Complaint Chief Complaint Vskxs-ur-ftkvuoz hypoxemic hypercapnic respiratory failure. Morbid obesity. Suspect obstructive sleep apnea/OHS. Pleural effusion, right greater than left. Suspect chronic acute cor pulmonale. Protein malnutrition, present upon admission. History of Present Illness History of Present Illness Mr Morris is a 58 yo M w/ PMHx OA, HTN, Hyperlipidemia, phimosis with urinary retention, Diabetes 2 admitted for shortness of breath, found in hypercapnic respiratory failure with acute CHF exacerbation, right pleural effusion. Seen by cardiology and pulmonology, started on aggressive diuresis and BIPAP. Patient seen and examined Patient in NAD. Used BIPAP last night. UOP has been excellent, K low today Still very swollen, up to chair today, still not able to lay flat. D/w family bedside need for further diuresis. ABG consistent with border on contraction alkalosis, have d/w pulmonology, did d/c zaroxyln, change furosemide to PO. He is able to ambulate today. Weight 166kg after approximately 16L diuresis. Echo consistent with RVSP elevated, right ventricular hypertrophy - COR PULMONALE - he is permanently disabled and will likely need home O2 and long term care administrator cardiac medications. Vitals Vitals Vital Signs Date Time Temp Pulse Resp B/P (MAP) Pulse Ox O2 Delivery O2 Flow Rate FiO2 11/04/18 07:18 Nasal Cannula 3.0 11/04/18 03:39 97.4 94 20 143/75 (97) 99 97.4 Physical Exam General: Alert, Oriented X3, Cooperative Heart: Regular rate Lungs: Crackles Abdomen: Normal bowel sounds Extremities: Other (+ Pitting edema BLE.) Skin: Other (Elongated, thickened dystrophic and discolored nails with subungal debris noted, right hallux and 2nd digits. No open lesions. No erythema noted. no HPKs noted.) Labs LABS Laboratory Tests Test 11/03/18 11:52 11/03/18 17:36 11/03/18 21:12 11/04/18 07:48 Glucose (Fingerstick) 103 mg/dL (70-99) 117 mg/dL (70-99) 163 mg/dL (70-99) 104 mg/dL (70-99) Assessment and Plan Assessmemt and Plan Problems Medical Problems: (1) CHF (congestive heart failure) Status: Acute (2) Hypoxemia Status: Acute Comment Review of Relevant I have reviewed the following items neil (where applicable) has been applied. Labs Laboratory Tests Test 11/02/18 11:22 11/02/18 11:36 11/02/18 16:50 11/02/18 20:29 Glucose (Fingerstick) 115 mg/dL (70-99) 125 mg/dL (70-99) 112 mg/dL (70-99) 154 mg/dL (70-99) Test 11/03/18 04:20 11/03/18 07:05 11/03/18 07:43 11/03/18 11:52 White Blood Count 4.7 x10^3/uL (4.0-11.0) Red Blood Count 4.54 x10^6/uL (4.30-5.70) Hemoglobin 12.4 g/dL (13.0-17.5) Hematocrit 38.6 % (39.0-53.0) Mean Corpuscular Volume 85 fL (79-100) Mean Corpuscular Hemoglobin 27 pg (25-35) Mean Corpuscular Hemoglobin Concent 32 g/dL (31-37) Red Cell Distribution Width 16.2 % (11.5-14.5) Platelet Count 201 x10^3/uL (140-400) Neutrophils (%) (Auto) 44 % (31-73) Lymphocytes (%) (Auto) 23 % (24-48) Monocytes (%) (Auto) 28 % (0-9) Eosinophils (%) (Auto) 5 % (0-3) Basophils (%) (Auto) 1 % (0-3) Neutrophils # (Auto) 2.0 x10^3uL (1.8-7.7) Lymphocytes # (Auto) 1.1 x10^3/uL (1.0-4.8) Monocytes # (Auto) 1.3 x10^3/uL (0.0-1.1) Eosinophils # (Auto) 0.2 x10^3/uL (0.0-0.7) Basophils # (Auto) 0.0 x10^3/uL (0.0-0.2) Sodium Level 140 mmol/L (136-145) Potassium Level 3.5 mmol/L (3.5-5.1) Chloride Level 96 mmol/L (98-107) Carbon Dioxide Level 44 mmol/L (21-32) Anion Gap (6-14) Blood Urea Nitrogen 12 mg/dL (8-26) Creatinine 0.7 mg/dL (0.7-1.3) Estimated GFR (Cockcroft-Gault) 139.7 Glucose Level 81 mg/dL (70-99) Calcium Level 9.4 mg/dL (8.5-10.1) Magnesium Level 1.9 mg/dL (1.8-2.4) O2 Saturation 90 % (92-99) Arterial Blood pH 7.42 (7.35-7.45) Arterial Blood pCO2 at Patient Temp 75 mmHg (35-46) Arterial Blood pO2 at Patient Temp 60 mmHg (65-108) Arterial Blood HCO3 47 mmol/L (21-28) Arterial Blood Base Excess 18 mmol/L (-3-3) FiO2 28 Glucose (Fingerstick) 78 mg/dL (70-99) 103 mg/dL (70-99) Test 11/03/18 17:36 11/03/18 21:12 11/04/18 07:48 Glucose (Fingerstick) 117 mg/dL (70-99) 163 mg/dL (70-99) 104 mg/dL (70-99) Laboratory Tests Test 11/03/18 11:52 11/03/18 17:36 11/03/18 21:12 11/04/18 07:48 Glucose (Fingerstick) 103 mg/dL (70-99) 117 mg/dL (70-99) 163 mg/dL (70-99) 104 mg/dL (70-99) Medications Current Medications Furosemide (Lasix) 60 mg 1X ONCE IVP Last administered on 10/28/18at 19:31; Start 10/28/18 at 19:15; Stop 10/28/18 at 19:16; Status DC Iohexol (Omnipaque 350 Mg/ml) 100 ml 1X ONCE IV Last administered on 10/28/18at 21:15; Start 10/28/18 at 21:15; Stop 10/28/18 at 21:16; Status DC Info (CONTRAST GIVEN -- Rx MONITORING) 1 each PRN DAILY PRN MC SEE COMMENTS; Start 10/28/18 at 21:15; Stop 10/30/18 at 21:14; Status DC Ondansetron HCl (Zofran) 4 mg PRN Q8HRS PRN IV NAUSEA/VOMITING 1ST CHOICE; Start 10/28/18 at 22:15; Stop 10/29/18 at 22:14; Status DC Morphine Sulfate (Morphine Sulfate) 2 mg PRN Q2HR PRN IV SEVERE PAIN; Start 10/28/18 at 22:15; Stop 10/29/18 at 22:14; Status DC Acetaminophen (Tylenol) 650 mg PRN Q4HRS PRN PO FEVER; Start 10/28/18 at 22:15; Stop 10/29/18 at 22:14; Status DC Hydralazine HCl (Apresoline Inj) 10 mg 1X ONCE IVP Last administered on 10/29/18at 00:32; Start 10/29/18 at 00:30; Stop 10/29/18 at 00:31; Status DC Perflutren Protein Type A Microsphe (Optison) 0.66 mg STK-MED ONCE IV ; Start 10/29/18 at 10:54; Stop 10/29/18 at 10:55; Status DC Furosemide (Lasix) 40 mg BID92 IVP Last administered on 11/03/18at 08:27; Start 10/29/18 at 11:00; Stop 11/03/18 at 14:09; Status DC Glimepiride (Amaryl) 2 mg DAILY08 PO Last administered on 11/03/18at 08:26; Start 10/29/18 at 17:00 Metformin HCl (Glucophage Xr) 500 mg DAILYWBKFT PO Last administered on 11/03/18at 08:26; Start 11/01/18 at 08:00 Enoxaparin Sodium (Lovenox Per Pharmacy Prophylaxis Dosing) 1 each PRN DAILY PRN MC SEE COMMENTS; Start 10/29/18 at 14:45 Enoxaparin Sodium (Lovenox 60mg Syringe) 60 mg Q12HR SQ Last administered on 11/03/18at 21:18; Start 10/29/18 at 21:00 Dextrose (Dextrose 50%-Water Syringe) 25 gm STK-MED ONCE IV ; Start 10/30/18 at 06:21; Stop 10/30/18 at 06:22; Status DC Dextrose (Dextrose 50%-Water Syringe) 25 gm 1X ONCE IV Last administered on 10/30/18at 07:05; Start 10/30/18 at 07:00; Stop 10/30/18 at 07:01; Status DC Perflutren Protein Type A Microsphe (Optison) 0.66 mg STK-MED ONCE IV ; Start 10/29/18 at 11:00; Stop 10/30/18 at 08:46; Status DC Potassium Chloride (Klor-Con) 40 meq 1X ONCE PO Last administered on 11/01/18at 10:10; Start 11/01/18 at 09:00; Stop 11/01/18 at 09:01; Status DC Magnesium Sulfate 50 ml @ 25 mls/hr 1X ONCE IV Last administered on 11/01/18at 10:12; Start 11/01/18 at 09:00; Stop 11/01/18 at 10:59; Status DC Metolazone (Zaroxolyn) 5 mg DAILY PO Last administered on 11/03/18at 08:27; Start 11/01/18 at 09:00; Stop 11/03/18 at 14:09; Status DC Hydralazine HCl (Apresoline Inj) 10 mg PRN Q4HRS PRN IVP ELEVATED BP, SEE COMMENTS Last administered on 11/01/18at 23:33; Start 11/01/18 at 23:15 Lisinopril (Prinivil) 5 mg DAILY PO Last administered on 11/03/18at 08:26; Start 11/02/18 at 14:00 Potassium Chloride (Klor-Con) 40 meq DAILY08 PO Last administered on 11/03/18at 08:32; Start 11/03/18 at 08:00 Furosemide (Lasix) 40 mg BID92 PO ; Start 11/04/18 at 09:00 Active Scripts Active Metformin Hcl Er (Metformin Hcl) 500 Mg Tab.er.24h 500 Mg PO BIDWMEALS Lisinopril 5 Mg Tablet 1 Tab PO DAILY Norvasc (Amlodipine Besylate) 2.5 Mg Tablet 1 Tab PO DAILY Reported Amlodipine Besylate 5 Mg Tablet 5 Mg PO DAILY Metformin Hcl Er (Metformin Hcl) 500 Mg Tab.er.24h 500 Mg PO DAILYWBKFT Lisinopril-Hctz 20-12.5 Mg Tab (Lisinopril/Hydrochlorothiazide) 1 Each Tablet 1 Tab PO DAILY Amaryl (Glimepiride) 1 Mg Tablet 2 Tab PO DAILY Furosemide 40 Mg Tablet 40 Mg PO DAILY Potassium Chloride 20 Meq Tablet.er 20 Meq PO DAILY Vitals/I & O Vital Sign - Last 24 Hours 11/03/18 11/03/18 11/03/18 11/03/18 08:26 08:30 11:00 15:00 Temp 98.5 98.5 98.5 98.5 Pulse 98 93 99 Resp 16 14 B/P (MAP) 149/92 138/86 (103) 137/76 (96) Pulse Ox 91 4 92 O2 Delivery Nasal Cannula Nasal Cannula Nasal Cannula O2 Flow Rate 2.0 4.0 11/03/18 11/03/18 11/03/18 11/04/18 19:39 20:00 22:55 00:00 Temp 98.8 98.9 98.8 98.9 Pulse 103 103 Resp 20 18 B/P (MAP) 152/92 (112) 130/89 (103) Pulse Ox 96 96 98 O2 Delivery Nasal Cannula Nasal Cannula Nasal Cannula BiPAP/CPAP O2 Flow Rate 6.0 2.0 4.0 11/04/18 11/04/18 11/04/18 03:00 03:39 07:18 Temp 97.4 97.4 Pulse 94 Resp 20 B/P (MAP) 143/75 (97) Pulse Ox 99 O2 Delivery BiPAP/CPAP BiPAP/CPAP Nasal Cannula O2 Flow Rate 3.0 Intake and Output 11/03/18 11/03/18 11/04/18 15:00 23:00 07:00 Intake Total 236 ml 300 ml Output Total 2800 ml 1000 ml 1225 ml Balance -2564 ml -1000 ml -925 ml ANTONIO SAAVEDRA MD November 04, 2018 08:03
[2018-11-04] MEDS: LISINOPRIL 5 MG TABLET. PO SCH (08:25)
[2018-11-04] MEDS: POTASSIUM CHLORIDE 20 MEQ TABLET.ER. PO SCH (08:25)
[2018-11-04] MEDS: metFORMIN XR 500 MG TAB.ER.24H PO SCH (08:25)
[2018-11-04] MEDS: FUROSEMIDE 40 MG TABLET. PO SCH ×2 (08:26→12:55)
[2018-11-04] MEDS: GLIMEPIRIDE 2 MG TABLET. PO SCH (08:26)
[2018-11-04 09:51] LABS: BASO % 1 % (0-3); EOS # 0.2 x10^3/uL (0.0-0.7); EOS % 5 % (0-3); HEMOGLOBIN 12.3 g/dL (13.0-17.5); LYMPH # 0.9 x10^3/uL (1.0-4.8); LYMPH % 21 % (24-48); MEAN CORPUSCULAR HEMOGLOBIN 27 pg (25-35); MEAN CORPUSCULAR HGB CONC 32 g/dL (31-37); MEAN CORPUSCULAR VOLUME 85 fL (79-100); MONO # 1.1 x10^3/uL (0.0-1.1); MONO % 26 % (0-9); NEUT % 48 % (31-73); PLATELET COUNT 181 x10^3/uL (140-400); RED BLOOD COUNT 4.57 x10^6/uL (4.30-5.70); RED CELL DISTRIBUTION WIDTH 16.4 % (11.5-14.5); WHITE BLOOD COUNT 4.3 x10^3/uL (4.0-11.0)
[2018-11-04 10:19] LABS: CALCIUM 9.5 mg/dL (8.5-10.1); CREATININE 0.7 mg/dL (0.7-1.3); GFR 139.7; POTASSIUM 3.5 mmol/L (3.5-5.1)
[2018-11-04 11:00] VITALS: BP 155/81
[2018-11-04] MEDS ORDERED: FUROSEMIDE 40 MG/4 ML VIAL. IVP ONE (12:45)
--- NOTE | 2018-11-04 14:21 | RESP ---
DATE OF SERVICE: 11/02/2018 NOCTURNAL OXIMETRY STUDY: The patient's room air sats were 83%. The patient was on 2 liters nasal cannula for the rest of the study. The patient's mean oxygen saturation remained around 92%, the lowest of 75%. Eleven minutes were spent in oxygen saturation of less than 90%, which is 48 minutes of the total sleep time. IMPRESSION: Nocturnal hypoxia. RECOMMENDATIONS: The patient would benefit from 2.5 liters of oxygen on a nightly basis. BANDAR POPE MD DR: FREDERICK/mike JOB#: [id number] / [id number]
--- NOTE | 2018-11-04 14:35 | PDOC2 ---
PALLIATIVE CARE Palliative Care Note Palliative Care Patient alert. sitting up in chair visiting with . AD document reviewed. Patient only wants to name DPOA---his . Samira PEÑALOZA will assist--message that is here. Patient feeling better. Encouraged to work with therapy. LIV SAAVEDRA November 04, 2018 14:35
[2018-11-04 15:00] VITALS: BP 159/85
--- NOTE | 2018-11-04 16:41 | PDOC ---
GIDEON HOPKINS TETRYL BOILING TUB OPERATOR 11/04/18 1641: CARDIO Progress Notes Date and Time Date of Service 11/04/18 Time of Evaluation 1145 Subjective Subjective: Other (SOA and edema improving. Ambulated in hallway today) Vitals Vitals Vital Signs Date Time Temp Pulse Resp B/P (MAP) Pulse Ox O2 Delivery O2 Flow Rate FiO2 11/04/18 15:00 98.4 101 16 159/85 (109) 100 Nasal Cannula 4.0 98.4 Weight Weight [ ] Input and Output Intake and Output Intake and Output 11/04/18 07:00 Intake Total 536 ml Output Total 5025 ml Balance -4489 ml Intake Oral 536 ml Output Urine Total 5025 ml Laboratory Labs Laboratory Tests Test 11/03/18 17:36 11/03/18 21:12 11/04/18 07:48 11/04/18 09:20 Glucose (Fingerstick) 117 mg/dL (70-99) 163 mg/dL (70-99) 104 mg/dL (70-99) White Blood Count 4.3 x10^3/uL (4.0-11.0) Red Blood Count 4.57 x10^6/uL (4.30-5.70) Hemoglobin 12.3 g/dL (13.0-17.5) Hematocrit 39.0 % (39.0-53.0) Mean Corpuscular Volume 85 fL (79-100) Mean Corpuscular Hemoglobin 27 pg (25-35) Mean Corpuscular Hemoglobin Concent 32 g/dL (31-37) Red Cell Distribution Width 16.4 % (11.5-14.5) Platelet Count 181 x10^3/uL (140-400) Neutrophils (%) (Auto) 48 % (31-73) Lymphocytes (%) (Auto) 21 % (24-48) Monocytes (%) (Auto) 26 % (0-9) Eosinophils (%) (Auto) 5 % (0-3) Basophils (%) (Auto) 1 % (0-3) Neutrophils # (Auto) 2.0 x10^3uL (1.8-7.7) Lymphocytes # (Auto) 0.9 x10^3/uL (1.0-4.8) Monocytes # (Auto) 1.1 x10^3/uL (0.0-1.1) Eosinophils # (Auto) 0.2 x10^3/uL (0.0-0.7) Basophils # (Auto) 0.0 x10^3/uL (0.0-0.2) Sodium Level 140 mmol/L (136-145) Potassium Level 3.5 mmol/L (3.5-5.1) Chloride Level 95 mmol/L (98-107) Carbon Dioxide Level 43 mmol/L (21-32) Anion Gap 2 (6-14) Blood Urea Nitrogen 12 mg/dL (8-26) Creatinine 0.7 mg/dL (0.7-1.3) Estimated GFR (Cockcroft-Gault) 139.7 Glucose Level 129 mg/dL (70-99) Calcium Level 9.5 mg/dL (8.5-10.1) Test 11/04/18 11:54 Glucose (Fingerstick) 98 mg/dL (70-99) Physical Exam HEENT: Neck Supple W Full Motion Chest: Symmetric LUNGS: Other (diminished bases) Heart: S1S2, RRR Abdomen: Soft N/T, Other (obese) Extremities: Other (2+ bilateral LE edema ) Neurology: alert, oriented, follow commands Assessment Assessment 1. Unvyf-nb-szcmvtd respiratory failure 2. Acute on chronic diastolic HF 3. Cor pulmonale 4. Hypertension; labile 5. Morbid obesity 6. Probable FLAKITO Recommendations Diuresis; Lasix IV x today increase lisinopril Otherwise, continue the same RO DAILEY MD 11/04/18 2341: CARDIO Progress Notes Plan Plan Pt. seen and examined. Agree with above CLINICAL ADVISOR note. GIDEON HOPKINS APRN November 04, 2018 16:41 RO DAILEY MD November 04, 2018 23:41
[2018-11-04 19:16] VITALS: BP 125/83
[2018-11-04] MEDS: ENOXAPARIN 40 MG/0.4 ML SYRINGE. SQ SCH (21:12)
[2018-11-04 22:17] VITALS: BP 136/78
[2018-11-05 03:12] VITALS: BP 145/85
[2018-11-05 06:31] VITALS: BP 139/87
[2018-11-05 07:26] LABS: CALCIUM 9.6 mg/dL (8.5-10.1); CREATININE 0.7 mg/dL (0.7-1.3); GFR 139.7; POTASSIUM 3.6 mmol/L (3.5-5.1)
[2018-11-05 07:29] LABS: BASO % 1 % (0-3); EOS # 0.2 x10^3/uL (0.0-0.7); EOS % 5 % (0-3); HEMATOCRIT 39.3 % (39.0-53.0); HEMOGLOBIN 12.8 g/dL (13.0-17.5); LYMPH # 1.1 x10^3/uL (1.0-4.8); LYMPH % 27 % (24-48); MEAN CORPUSCULAR HEMOGLOBIN 27 pg (25-35); MEAN CORPUSCULAR HGB CONC 33 g/dL (31-37); MEAN CORPUSCULAR VOLUME 84 fL (79-100); MONO # 1.1 x10^3/uL (0.0-1.1); MONO % 27 % (0-9); NEUT # 1.7 x10^3uL (1.8-7.7); NEUT % 41 % (31-73); PLATELET COUNT 182 x10^3/uL (140-400); RED BLOOD COUNT 4.68 x10^6/uL (4.30-5.70); RED CELL DISTRIBUTION WIDTH 16.2 % (11.5-14.5); WHITE BLOOD COUNT 4.2 x10^3/uL (4.0-11.0)
--- NOTE | 2018-11-05 07:45 | PDOC ---
PROGRESS NOTES Chief Complaint Chief Complaint Eesyj-no-nwnlyue hypoxemic hypercapnic respiratory failure. Morbid obesity. Suspect obstructive sleep apnea/OHS. Pleural effusion, right greater than left. Suspect chronic acute cor pulmonale. Protein malnutrition, present upon admission. History of Present Illness History of Present Illness Mr Morris is a 58 yo M w/ PMHx OA, HTN, Hyperlipidemia, phimosis with urinary retention, Diabetes 2 admitted for shortness of breath, found in hypercapnic respiratory failure with acute CHF exacerbation, right pleural effusion. Seen by cardiology and pulmonology, started on aggressive diuresis and BIPAP. Patient seen and examined Patient in NAD. Used BIPAP last night. UOP has been excellent, K low today Still very swollen, up to chair today, still not able to lay flat. D/w family bedside need for further diuresis. ABG consistent with border on contraction alkalosis, have d/w pulmonology, did d/c zaroxyln, change furosemide to PO. He is able to ambulate today. Weight 166kg after approximately 16L diuresis. 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 Vitals Vitals Vital Signs Date Time Temp Pulse Resp B/P (MAP) Pulse Ox O2 Delivery O2 Flow Rate FiO2 11/05/18 06:31 98.2 107 18 139/87 (104) 91 Nasal Cannula 3.0 98.2 Physical Exam General: Alert, Oriented X3, Cooperative Heart: Regular rate Lungs: Crackles Abdomen: Normal bowel sounds Extremities: Other (+ Pitting edema BLE.) Skin: Other (Elongated, thickened dystrophic and discolored nails with subungal debris noted, right hallux and 2nd digits. No open lesions. No erythema noted. no HPKs noted.) Labs LABS Laboratory Tests Test 11/04/18 07:48 11/04/18 09:20 11/04/18 11:54 11/04/18 20:54 Glucose (Fingerstick) 104 mg/dL (70-99) 98 mg/dL (70-99) 144 mg/dL (70-99) White Blood Count 4.3 x10^3/uL (4.0-11.0) Red Blood Count 4.57 x10^6/uL (4.30-5.70) Hemoglobin 12.3 g/dL (13.0-17.5) Hematocrit 39.0 % (39.0-53.0) Mean Corpuscular Volume 85 fL (79-100) Mean Corpuscular Hemoglobin 27 pg (25-35) Mean Corpuscular Hemoglobin Concent 32 g/dL (31-37) Red Cell Distribution Width 16.4 % (11.5-14.5) Platelet Count 181 x10^3/uL (140-400) Neutrophils (%) (Auto) 48 % (31-73) Lymphocytes (%) (Auto) 21 % (24-48) Monocytes (%) (Auto) 26 % (0-9) Eosinophils (%) (Auto) 5 % (0-3) Basophils (%) (Auto) 1 % (0-3) Neutrophils # (Auto) 2.0 x10^3uL (1.8-7.7) Lymphocytes # (Auto) 0.9 x10^3/uL (1.0-4.8) Monocytes # (Auto) 1.1 x10^3/uL (0.0-1.1) Eosinophils # (Auto) 0.2 x10^3/uL (0.0-0.7) Basophils # (Auto) 0.0 x10^3/uL (0.0-0.2) Sodium Level 140 mmol/L (136-145) Potassium Level 3.5 mmol/L (3.5-5.1) Chloride Level 95 mmol/L (98-107) Carbon Dioxide Level 43 mmol/L (21-32) Anion Gap 2 (6-14) Blood Urea Nitrogen 12 mg/dL (8-26) Creatinine 0.7 mg/dL (0.7-1.3) Estimated GFR (Cockcroft-Gault) 139.7 Glucose Level 129 mg/dL (70-99) Calcium Level 9.5 mg/dL (8.5-10.1) Test 11/05/18 06:42 11/05/18 07:32 Sodium Level 140 mmol/L (136-145) Potassium Level 3.6 mmol/L (3.5-5.1) Chloride Level 96 mmol/L (98-107) Carbon Dioxide Level 41 mmol/L (21-32) Anion Gap 3 (6-14) Blood Urea Nitrogen 13 mg/dL (8-26) Creatinine 0.7 mg/dL (0.7-1.3) Estimated GFR (Cockcroft-Gault) 139.7 Glucose Level 91 mg/dL (70-99) Calcium Level 9.6 mg/dL (8.5-10.1) Glucose (Fingerstick) 280 mg/dL (70-99) Assessment and Plan Assessmemt and Plan Problems Medical Problems: (1) CHF (congestive heart failure) Status: Acute (2) Hypoxemia Status: Acute Comment Review of Relevant I have reviewed the following items neil (where applicable) has been applied. Labs Laboratory Tests Test 11/03/18 11:52 11/03/18 17:36 11/03/18 21:12 11/04/18 07:48 Glucose (Fingerstick) 103 mg/dL (70-99) 117 mg/dL (70-99) 163 mg/dL (70-99) 104 mg/dL (70-99) Test 11/04/18 09:20 11/04/18 11:54 11/04/18 20:54 11/05/18 06:42 White Blood Count 4.3 x10^3/uL (4.0-11.0) Red Blood Count 4.57 x10^6/uL (4.30-5.70) Hemoglobin 12.3 g/dL (13.0-17.5) Hematocrit 39.0 % (39.0-53.0) Mean Corpuscular Volume 85 fL (79-100) Mean Corpuscular Hemoglobin 27 pg (25-35) Mean Corpuscular Hemoglobin Concent 32 g/dL (31-37) Red Cell Distribution Width 16.4 % (11.5-14.5) Platelet Count 181 x10^3/uL (140-400) Neutrophils (%) (Auto) 48 % (31-73) Lymphocytes (%) (Auto) 21 % (24-48) Monocytes (%) (Auto) 26 % (0-9) Eosinophils (%) (Auto) 5 % (0-3) Basophils (%) (Auto) 1 % (0-3) Neutrophils # (Auto) 2.0 x10^3uL (1.8-7.7) Lymphocytes # (Auto) 0.9 x10^3/uL (1.0-4.8) Monocytes # (Auto) 1.1 x10^3/uL (0.0-1.1) Eosinophils # (Auto) 0.2 x10^3/uL (0.0-0.7) Basophils # (Auto) 0.0 x10^3/uL (0.0-0.2) Sodium Level 140 mmol/L (136-145) 140 mmol/L (136-145) Potassium Level 3.5 mmol/L (3.5-5.1) 3.6 mmol/L (3.5-5.1) Chloride Level 95 mmol/L (98-107) 96 mmol/L (98-107) Carbon Dioxide Level 43 mmol/L (21-32) 41 mmol/L (21-32) Anion Gap 2 (6-14) 3 (6-14) Blood Urea Nitrogen 12 mg/dL (8-26) 13 mg/dL (8-26) Creatinine 0.7 mg/dL (0.7-1.3) 0.7 mg/dL (0.7-1.3) Estimated GFR (Cockcroft-Gault) 139.7 139.7 Glucose Level 129 mg/dL (70-99) 91 mg/dL (70-99) Calcium Level 9.5 mg/dL (8.5-10.1) 9.6 mg/dL (8.5-10.1) Glucose (Fingerstick) 98 mg/dL (70-99) 144 mg/dL (70-99) Test 11/05/18 07:32 Glucose (Fingerstick) 280 mg/dL (70-99) Laboratory Tests Test 11/04/18 07:48 11/04/18 09:20 11/04/18 11:54 11/04/18 20:54 Glucose (Fingerstick) 104 mg/dL (70-99) 98 mg/dL (70-99) 144 mg/dL (70-99) White Blood Count 4.3 x10^3/uL (4.0-11.0) Red Blood Count 4.57 x10^6/uL (4.30-5.70) Hemoglobin 12.3 g/dL (13.0-17.5) Hematocrit 39.0 % (39.0-53.0) Mean Corpuscular Volume 85 fL (79-100) Mean Corpuscular Hemoglobin 27 pg (25-35) Mean Corpuscular Hemoglobin Concent 32 g/dL (31-37) Red Cell Distribution Width 16.4 % (11.5-14.5) Platelet Count 181 x10^3/uL (140-400) Neutrophils (%) (Auto) 48 % (31-73) Lymphocytes (%) (Auto) 21 % (24-48) Monocytes (%) (Auto) 26 % (0-9) Eosinophils (%) (Auto) 5 % (0-3) Basophils (%) (Auto) 1 % (0-3) Neutrophils # (Auto) 2.0 x10^3uL (1.8-7.7) Lymphocytes # (Auto) 0.9 x10^3/uL (1.0-4.8) Monocytes # (Auto) 1.1 x10^3/uL (0.0-1.1) Eosinophils # (Auto) 0.2 x10^3/uL (0.0-0.7) Basophils # (Auto) 0.0 x10^3/uL (0.0-0.2) Sodium Level 140 mmol/L (136-145) Potassium Level 3.5 mmol/L (3.5-5.1) Chloride Level 95 mmol/L (98-107) Carbon Dioxide Level 43 mmol/L (21-32) Anion Gap 2 (6-14) Blood Urea Nitrogen 12 mg/dL (8-26) Creatinine 0.7 mg/dL (0.7-1.3) Estimated GFR (Cockcroft-Gault) 139.7 Glucose Level 129 mg/dL (70-99) Calcium Level 9.5 mg/dL (8.5-10.1) Test 11/05/18 06:42 11/05/18 07:32 Sodium Level 140 mmol/L (136-145) Potassium Level 3.6 mmol/L (3.5-5.1) Chloride Level 96 mmol/L (98-107) Carbon Dioxide Level 41 mmol/L (21-32) Anion Gap 3 (6-14) Blood Urea Nitrogen 13 mg/dL (8-26) Creatinine 0.7 mg/dL (0.7-1.3) Estimated GFR (Cockcroft-Gault) 139.7 Glucose Level 91 mg/dL (70-99) Calcium Level 9.6 mg/dL (8.5-10.1) Glucose (Fingerstick) 280 mg/dL (70-99) Medications Current Medications Furosemide (Lasix) 60 mg 1X ONCE IVP Last administered on 10/28/18at 19:31; Start 10/28/18 at 19:15; Stop 10/28/18 at 19:16; Status DC Iohexol (Omnipaque 350 Mg/ml) 100 ml 1X ONCE IV Last administered on 10/28/18at 21:15; Start 10/28/18 at 21:15; Stop 10/28/18 at 21:16; Status DC Info (CONTRAST GIVEN -- Rx MONITORING) 1 each PRN DAILY PRN MC SEE COMMENTS; Start 10/28/18 at 21:15; Stop 10/30/18 at 21:14; Status DC Ondansetron HCl (Zofran) 4 mg PRN Q8HRS PRN IV NAUSEA/VOMITING 1ST CHOICE; Start 10/28/18 at 22:15; Stop 10/29/18 at 22:14; Status DC Morphine Sulfate (Morphine Sulfate) 2 mg PRN Q2HR PRN IV SEVERE PAIN; Start 10/28/18 at 22:15; Stop 10/29/18 at 22:14; Status DC Acetaminophen (Tylenol) 650 mg PRN Q4HRS PRN PO FEVER; Start 10/28/18 at 22:15; Stop 10/29/18 at 22:14; Status DC Hydralazine HCl (Apresoline Inj) 10 mg 1X ONCE IVP Last administered on 10/29/18at 00:32; Start 10/29/18 at 00:30; Stop 10/29/18 at 00:31; Status DC Perflutren Protein Type A Microsphe (Optison) 0.66 mg STK-MED ONCE IV ; Start 10/29/18 at 10:54; Stop 10/29/18 at 10:55; Status DC Furosemide (Lasix) 40 mg BID92 IVP Last administered on 11/03/18at 08:27; Start 10/29/18 at 11:00; Stop 11/03/18 at 14:09; Status DC Glimepiride (Amaryl) 2 mg DAILY08 PO Last administered on 11/04/18at 08:26; Start 10/29/18 at 17:00 Metformin HCl (Glucophage Xr) 500 mg DAILYWBKFT PO Last administered on 11/04/18at 08:25; Start 11/01/18 at 08:00 Enoxaparin Sodium (Lovenox Per Pharmacy Prophylaxis Dosing) 1 each PRN DAILY PRN MC SEE COMMENTS; Start 10/29/18 at 14:45 Enoxaparin Sodium (Lovenox 60mg Syringe) 60 mg Q12HR SQ Last administered on at 08:28; Start 10/29/18 at 21:00; Stop 11/04/18 at 15:29; Status DC Dextrose (Dextrose 50%-Water Syringe) 25 gm STK-MED ONCE IV ; Start 10/30/18 at 06:21; Stop 10/30/18 at 06:22; Status DC Dextrose (Dextrose 50%-Water Syringe) 25 gm 1X ONCE IV Last administered on 10/30/18at 07:05; Start 10/30/18 at 07:00; Stop 10/30/18 at 07:01; Status DC Perflutren Protein Type A Microsphe (Optison) 0.66 mg STK-MED ONCE IV ; Start 10/29/18 at 11:00; Stop 10/30/18 at 08:46; Status DC Potassium Chloride (Klor-Con) 40 meq 1X ONCE PO Last administered on 11/01/18at 10:10; Start 11/01/18 at 09:00; Stop 11/01/18 at 09:01; Status DC Magnesium Sulfate 50 ml @ 25 mls/hr 1X ONCE IV Last administered on 11/01/18at 10:12; Start 11/01/18 at 09:00; Stop 11/01/18 at 10:59; Status DC Metolazone (Zaroxolyn) 5 mg DAILY PO Last administered on 11/03/18at 08:27; Start 11/01/18 at 09:00; Stop 11/03/18 at 14:09; Status DC Hydralazine HCl (Apresoline Inj) 10 mg PRN Q4HRS PRN IVP ELEVATED BP, SEE COMMENTS Last administered on 11/01/18at 23:33; Start 11/01/18 at 23:15 Lisinopril (Prinivil) 5 mg DAILY PO Last administered on 11/04/18at 08:25; Start 11/02/18 at 14:00; Stop 11/04/18 at 16:40; Status DC Potassium Chloride (Klor-Con) 40 meq DAILY08 PO Last administered on 11/04/18at 08:25; Start 11/03/18 at 08:00 Furosemide (Lasix) 40 mg [id number] PO Last administered on 11/04/18at 08:26; Start 11/04/18 at 09:00 Furosemide (Lasix) 40 mg 1X ONCE IVP Last administered on 11/04/18at 12:56; Start 11/04/18 at 12:45; Stop 11/04/18 at 12:46; Status DC Enoxaparin Sodium (Lovenox 40mg Syringe) 40 mg Q12HR SQ Last administered on 11/04/18at 21:12; Start 11/04/18 at 21:00 Lisinopril (Prinivil) 10 mg DAILY PO ; Start 11/05/18 at 09:00 Active Scripts Active Metformin Hcl Er (Metformin Hcl) 500 Mg Tab.er.24h 500 Mg PO BIDWMEALS Lisinopril 5 Mg Tablet 1 Tab PO DAILY Norvasc (Amlodipine Besylate) 2.5 Mg Tablet 1 Tab PO DAILY Reported Amlodipine Besylate 5 Mg Tablet 5 Mg PO DAILY Metformin Hcl Er (Metformin Hcl) 500 Mg Tab.er.24h 500 Mg PO DAILYWBKFT Lisinopril-Hctz 20-12.5 Mg Tab (Lisinopril/Hydrochlorothiazide) 1 Each Tablet 1 Tab PO DAILY Amaryl (Glimepiride) 1 Mg Tablet 2 Tab PO DAILY Furosemide 40 Mg Tablet 40 Mg PO DAILY Potassium Chloride 20 Meq Tablet.er 20 Meq PO DAILY Vitals/I & O Vital Sign - Last 24 Hours 11/04/18 11/04/18 11/04/18 11/04/18 08:25 11:00 15:00 19:16 Temp 98.9 98.4 99.1 98.9 98.4 99.1 Pulse 99 96 101 104 Resp 16 16 16 B/P (MAP) 115/77 155/81 (105) 159/85 (109) 125/83 (97) Pulse Ox 96 100 96 O2 Delivery Nasal Cannula Nasal Cannula Nasal Cannula O2 Flow Rate 4.0 4.0 3.0 11/04/18 11/04/18 11/05/18 11/05/18 20:00 22:17 03:12 06:31 Temp 98.8 98.4 98.2 98.8 98.4 98.2 Pulse 101 98 107 Resp 18 18 18 B/P (MAP) 136/78 (97) 145/85 (105) 139/87 (104) Pulse Ox 97 96 91 O2 Delivery Nasal Cannula Nasal Cannula Nasal Cannula Nasal Cannula O2 Flow Rate 3.0 3.0 3.0 3.0 Intake and Output 11/04/18 11/04/18 11/05/18 14:59 22:59 06:59 Intake Total 120 ml 330 ml Output Total 1200 ml 1100 ml 1125 ml Balance -1080 ml -1100 ml -795 ml ANTONIO SAAVEDRA MD November 05, 2018 07:45
[2018-11-05] MEDS: POTASSIUM CHLORIDE 20 MEQ TABLET.ER. PO SCH (08:23)
[2018-11-05] MEDS: GLIMEPIRIDE 2 MG TABLET. PO SCH (08:23)
[2018-11-05] MEDS: metFORMIN XR 500 MG TAB.ER.24H PO SCH (08:23)
[2018-11-05] MEDS: FUROSEMIDE 40 MG TABLET. PO SCH ×2 (08:24→14:03)
[2018-11-05] MEDS: ENOXAPARIN 40 MG/0.4 ML SYRINGE. SQ SCH (08:25)
[2018-11-05] MEDS ORDERED: LISINOPRIL 10 MG TABLET PO SCH (09:00)
[2018-11-05 09:55] LABS: % BANDS 3 % (0-9); % BASOS 1 % (0-3); % EOS 1 % (0-5); % LYMPHS 22 % (24-48); % MONOS 25 % (0-10); % SEGS 48 % (35-66); PLT ESTIMATE ADEQUATE (ADEQUATE)
[2018-11-05 11:00] VITALS: BP 168/96
--- NOTE | 2018-11-05 12:23 | PDOC ---
GIDEON HOPKINS GEREMIAS 11/05/18 1223: CARDIO Progress Notes Date and Time Date of Service 11/05/18 Time of Evaluation 1210 Subjective Subjective: Other (much better today. Ambulating in hallway) Vitals Vitals Vital Signs Date Time Temp Pulse Resp B/P (MAP) Pulse Ox O2 Delivery O2 Flow Rate FiO2 11/05/18 11:00 98.2 93 18 168/96 (120) 97 Nasal Cannula 4.0 98.2 Weight Weight [ ] Input and Output Intake and Output Intake and Output 11/05/18 06:59 Intake Total 450 ml Output Total 3425 ml Balance -2975 ml Intake Oral 450 ml Output Urine Total 3425 ml Laboratory Labs Laboratory Tests Test 11/04/18 20:54 11/05/18 06:42 11/05/18 07:32 11/05/18 12:04 Glucose (Fingerstick) 144 mg/dL (70-99) 280 mg/dL (70-99) 84 mg/dL (70-99) White Blood Count 4.2 x10^3/uL (4.0-11.0) Red Blood Count 4.68 x10^6/uL (4.30-5.70) Hemoglobin 12.8 g/dL (13.0-17.5) Hematocrit 39.3 % (39.0-53.0) Mean Corpuscular Volume 84 fL (79-100) Mean Corpuscular Hemoglobin 27 pg (25-35) Mean Corpuscular Hemoglobin Concent 33 g/dL (31-37) Red Cell Distribution Width 16.2 % (11.5-14.5) Platelet Count 182 x10^3/uL (140-400) Neutrophils (%) (Auto) 41 % (31-73) Lymphocytes (%) (Auto) 27 % (24-48) Monocytes (%) (Auto) 27 % (0-9) Eosinophils (%) (Auto) 5 % (0-3) Basophils (%) (Auto) 1 % (0-3) Neutrophils # (Auto) 1.7 x10^3uL (1.8-7.7) Lymphocytes # (Auto) 1.1 x10^3/uL (1.0-4.8) Monocytes # (Auto) 1.1 x10^3/uL (0.0-1.1) Eosinophils # (Auto) 0.2 x10^3/uL (0.0-0.7) Basophils # (Auto) 0.0 x10^3/uL (0.0-0.2) Segmented Neutrophils % 48 % (35-66) Band Neutrophils % 3 % (0-9) Lymphocytes % 22 % (24-48) Monocytes % 25 % (0-10) Eosinophils % 1 % (0-5) Basophils % 1 % (0-3) Platelet Estimate Adequate (ADEQUATE) Sodium Level 140 mmol/L (136-145) Potassium Level 3.6 mmol/L (3.5-5.1) Chloride Level 96 mmol/L (98-107) Carbon Dioxide Level 41 mmol/L (21-32) Anion Gap 3 (6-14) Blood Urea Nitrogen 13 mg/dL (8-26) Creatinine 0.7 mg/dL (0.7-1.3) Estimated GFR (Cockcroft-Gault) 139.7 Glucose Level 91 mg/dL (70-99) Calcium Level 9.6 mg/dL (8.5-10.1) Physical Exam HEENT: Neck Supple W Full Motion Chest: Symmetric LUNGS: Other (diminished bases) Heart: S1S2, RRR Abdomen: Soft N/T, Other (obese) Extremities: Other (1-2+ bilateral LE edema ) Neurology: alert, oriented, follow commands Assessment Assessment 1. Jazvo-im-skckprt respiratory failure 2. Acute on chronic diastolic HF 3. Cor pulmonale 4. Hypertension; labile 5. Morbid obesity 6. Probable FLAKITO Recommendations Lasix therapy Outpatient sleep study Supportive care RO DAILEY MD 11/05/18 1711: CARDIO Progress Notes Plan Plan Patient seen and examined. Agree with above nurse practitioner note. Medications reviewed with nursing staff. Continue close fluid monitoring. Supportive care. He will need follow-up in the office in 4-6 weeks. GIDEON HOPKINS APRN November 05, 2018 12:23 RO DAILEY MD November 05, 2018 17:11
--- NOTE | 2018-11-05 13:29 | NUR ---
SS following up with discharge planning. SS met with pt to discuss oxygen needs. SS contacted Robin at [facility] and was notified that a home concentrator and portable set up would cost approximately $145/month. They stated that each additional tank would cost $22/month. They stated that if agreeable pt needed to provide them with a credit card number to have on file and pt could discharge to home with one of there tanks and then contact them once home to set up delivery. SS met with pt and discussed and provided information. Pt accepted information and stated "he would do what he needed to do." SS also contacted pt's spouse and discussed.
--- NOTE | 2018-11-05 13:34 | NUR ---
SS met with pt and discussed need for walker at home. Pt reported that he was donated a walker from a family member and will have available at home.
[2018-11-05] MEDS ORDERED: FURO40TA4 PO (14:44)
[2018-11-05] MEDS ORDERED: POTA20TA82 PO (14:44)
[2018-11-05] MEDS ORDERED: LISI-338 PO (14:44)
--- NOTE | 2018-11-05 14:47 | SNU/HH DC ---
DISCHARGE WITH HOME HEALTH DISCHARGE INFORMATION: Discharge Date: November 05, 2018 Final Diagnosis: Problems Medical Problems: (1) CHF (congestive heart failure) Status: Acute (2) Hypoxemia Status: Acute Condition on Discharge: Stable CODE STATUS: Code Status: DNR/DNI HOME HEALTH: Face to Face: I certify this patient is under my care and that I, or a nurse practitioner or physician's procurement assistant working with me, had a face to face encounter that meets the physician face to face encounter requirements with this patient on 11/05/18. Medical Complications: CHF RN For Eval/Treatment: Yes Physical Therapy For: Evalulation/Treatment Occupational Therapy For: Evaluation/Treatment Pt Meets Homebound Status: Extreme weakness w/ amb. POST DISCHARGE ORDERS: Activity Instructions for Disc: Activity as tolerated Weight Bearing Status after Di: No restrictions Bathing Instructions: Shower-keep dressing dry DIET AFTER DISCHARGE: Cardiac Wound/Incision Care: Ice to area for comfort, Other, see below CHECKS AFTER DISCHARGE: Checks after discharge: Check blood press - daily, Check blood sugar, ac/hs, Check your Temp as needed, Weigh Yourself Daily TREATMENT/EQUIPMENT ORDERS: Adaptive Equipment Issued: Four wheeled walker CERTIFICATION STATEMENT: Certification Statement: Certification Statement: Based on the above finding, I certify that this patient is confined to the home and needs intermittent mcfp care, physical therapy and/or speech therapy, or continues to need occupational therapy.~ This patient is under my care, and I have initiated the establishment of the plan of care.~ This patient will be followed by myself or a community physician who will periodically review the plan of care. Home Meds Active Scripts Metoprolol Succinate (METOPROLOL SUCCINATE ( XL )) 25 Mg Tab.er.24h, 0.5 TAB PO DAILY for CHF for 30 Days, #15 TAB 5 Refills Prov:ANTONIO SAAVEDRA MD 11/05/18 Furosemide (FUROSEMIDE) 40 Mg Tablet, 40 MG PO BID for CHF for 30 Days, #60 TAB 2 Refills Prov:ANTONIO SAAVEDRA MD 11/05/18 Potassium Chloride (POTASSIUM CHLORIDE) 20 Meq Tablet.er, 40 MEQ PO DAILY for CHF for 30 Days, #60 TAB.SR 2 Refills Prov:ANTONIO SAAVEDRA MD 11/05/18 Lisinopril (LISINOPRIL) 5 Mg Tablet, 2 TAB PO DAILY for CHF for 30 Days, #60 TAB 2 Refills can sub with 10mg tabs Prov:ANTONIO SAAVEDRA MD 11/05/18 Metformin Hcl (METFORMIN HCL ER) 500 Mg Tab.er.24h, 500 MG PO BIDWMEALS, #60 TAB Prov:NILESH CARTER MD 11/29/17 Reported Medications Metformin Hcl (METFORMIN HCL ER) 500 Mg Tab.er.24h, 500 MG PO DAILYWBKFT for ANTI-DIABETIC, TAB 0 Refills 10/29/18 Lisinopril/Hydrochlorothiazide (LISINOPRIL-HCTZ 20-12.5 MG TAB) 1 Each Tablet, 1 TAB PO DAILY for HTN, #30 TAB 5 Refills 10/29/18 Glimepiride (AMARYL) 1 Mg Tablet, 2 TAB PO DAILY for Diabetes, #30 TAB 5 Refills 10/29/18 Discontinued Reported Medications Amlodipine Besylate (AMLODIPINE BESYLATE) 5 Mg Tablet, 5 MG PO DAILY for HTN, TAB 10/29/18 Hydrocodone/Apap 5-325 (NORCO 5-325 TABLET) 1 Each Tablet, 1-2 TAB PO Q4-6HRS, #40 TAB 01/19/18 Sulfamethoxazole/Trimethoprim (BACTRIM 400-80 MG TABLET) 1 Each Tablet, 2 TAB PO BID, #20 TAB 01/19/18 Oxybutynin Chloride (OXYBUTYNIN CHLORIDE) 5 Mg Tablet, 5 MG PO TID, TAB 01/19/18 Discontinued Scripts Amlodipine Besylate (NORVASC) 2.5 Mg Tablet, 1 TAB PO DAILY, #30 TAB 1 Refill Prov:NILESH CARTER MD 11/29/17 ANTONIO SAAVEDRA MD November 05, 2018 14:46
[2018-11-05] MEDS ORDERED: METO-239 PO (14:50)
--- NOTE | 2018-11-05 14:51 | PDOC3 ---
Discharge Summary Visit Information Date of Admission: October 28, 2018 Date of Discharge: November 05, 2018 Admitting Diagnosis: Acute diastolic CHF with cor Pulmonale Final Diagnosis Problems Medical Problems: (1) CHF (congestive heart failure) Status: Acute (2) Hypoxemia Status: Acute Brief Hospital Course Allergies Allergies Coded Allergies Type Severity Reaction Last Updated Verified No Known Drug Allergies 01/19/18 No Vital Signs Vital Signs Date Time Temp Pulse Resp B/P (MAP) Pulse Ox O2 Delivery O2 Flow Rate FiO2 11/05/18 11:00 98.2 93 18 168/96 (120) 97 Nasal Cannula 4.0 98.2 Lab Results Laboratory Tests Test 11/03/18 17:36 11/03/18 21:12 11/04/18 07:48 11/04/18 09:20 Glucose (Fingerstick) 117 mg/dL (70-99) 163 mg/dL (70-99) 104 mg/dL (70-99) White Blood Count 4.3 x10^3/uL (4.0-11.0) Red Blood Count 4.57 x10^6/uL (4.30-5.70) Hemoglobin 12.3 g/dL (13.0-17.5) Hematocrit 39.0 % (39.0-53.0) Mean Corpuscular Volume 85 fL (79-100) Mean Corpuscular Hemoglobin 27 pg (25-35) Mean Corpuscular Hemoglobin Concent 32 g/dL (31-37) Red Cell Distribution Width 16.4 % (11.5-14.5) Platelet Count 181 x10^3/uL (140-400) Neutrophils (%) (Auto) 48 % (31-73) Lymphocytes (%) (Auto) 21 % (24-48) Monocytes (%) (Auto) 26 % (0-9) Eosinophils (%) (Auto) 5 % (0-3) Basophils (%) (Auto) 1 % (0-3) Neutrophils # (Auto) 2.0 x10^3uL (1.8-7.7) Lymphocytes # (Auto) 0.9 x10^3/uL (1.0-4.8) Monocytes # (Auto) 1.1 x10^3/uL (0.0-1.1) Eosinophils # (Auto) 0.2 x10^3/uL (0.0-0.7) Basophils # (Auto) 0.0 x10^3/uL (0.0-0.2) Sodium Level 140 mmol/L (136-145) Potassium Level 3.5 mmol/L (3.5-5.1) Chloride Level 95 mmol/L (98-107) Carbon Dioxide Level 43 mmol/L (21-32) Anion Gap 2 (6-14) Blood Urea Nitrogen 12 mg/dL (8-26) Creatinine 0.7 mg/dL (0.7-1.3) Estimated GFR (Cockcroft-Gault) 139.7 Glucose Level 129 mg/dL (70-99) Calcium Level 9.5 mg/dL (8.5-10.1) Test 11/04/18 11:54 11/04/18 20:54 11/05/18 06:42 11/05/18 07:32 Glucose (Fingerstick) 98 mg/dL (70-99) 144 mg/dL (70-99) 280 mg/dL (70-99) White Blood Count 4.2 x10^3/uL (4.0-11.0) Red Blood Count 4.68 x10^6/uL (4.30-5.70) Hemoglobin 12.8 g/dL (13.0-17.5) Hematocrit 39.3 % (39.0-53.0) Mean Corpuscular Volume 84 fL (79-100) Mean Corpuscular Hemoglobin 27 pg (25-35) Mean Corpuscular Hemoglobin Concent 33 g/dL (31-37) Red Cell Distribution Width 16.2 % (11.5-14.5) Platelet Count 182 x10^3/uL (140-400) Neutrophils (%) (Auto) 41 % (31-73) Lymphocytes (%) (Auto) 27 % (24-48) Monocytes (%) (Auto) 27 % (0-9) Eosinophils (%) (Auto) 5 % (0-3) Basophils (%) (Auto) 1 % (0-3) Neutrophils # (Auto) 1.7 x10^3uL (1.8-7.7) Lymphocytes # (Auto) 1.1 x10^3/uL (1.0-4.8) Monocytes # (Auto) 1.1 x10^3/uL (0.0-1.1) Eosinophils # (Auto) 0.2 x10^3/uL (0.0-0.7) Basophils # (Auto) 0.0 x10^3/uL (0.0-0.2) Segmented Neutrophils % 48 % (35-66) Band Neutrophils % 3 % (0-9) Lymphocytes % 22 % (24-48) Monocytes % 25 % (0-10) Eosinophils % 1 % (0-5) Basophils % 1 % (0-3) Platelet Estimate Adequate (ADEQUATE) Sodium Level 140 mmol/L (136-145) Potassium Level 3.6 mmol/L (3.5-5.1) Chloride Level 96 mmol/L (98-107) Carbon Dioxide Level 41 mmol/L (21-32) Anion Gap 3 (6-14) Blood Urea Nitrogen 13 mg/dL (8-26) Creatinine 0.7 mg/dL (0.7-1.3) Estimated GFR (Cockcroft-Gault) 139.7 Glucose Level 91 mg/dL (70-99) Calcium Level 9.6 mg/dL (8.5-10.1) Test 11/05/18 12:04 Glucose (Fingerstick) 84 mg/dL (70-99) Laboratory Tests Test 11/04/18 20:54 11/05/18 06:42 11/05/18 07:32 11/05/18 12:04 Glucose (Fingerstick) 144 mg/dL (70-99) 280 mg/dL (70-99) 84 mg/dL (70-99) White Blood Count 4.2 x10^3/uL (4.0-11.0) Red Blood Count 4.68 x10^6/uL (4.30-5.70) Hemoglobin 12.8 g/dL (13.0-17.5) Hematocrit 39.3 % (39.0-53.0) Mean Corpuscular Volume 84 fL (79-100) Mean Corpuscular Hemoglobin 27 pg (25-35) Mean Corpuscular Hemoglobin Concent 33 g/dL (31-37) Red Cell Distribution Width 16.2 % (11.5-14.5) Platelet Count 182 x10^3/uL (140-400) Neutrophils (%) (Auto) 41 % (31-73) Lymphocytes (%) (Auto) 27 % (24-48) Monocytes (%) (Auto) 27 % (0-9) Eosinophils (%) (Auto) 5 % (0-3) Basophils (%) (Auto) 1 % (0-3) Neutrophils # (Auto) 1.7 x10^3uL (1.8-7.7) Lymphocytes # (Auto) 1.1 x10^3/uL (1.0-4.8) Monocytes # (Auto) 1.1 x10^3/uL (0.0-1.1) Eosinophils # (Auto) 0.2 x10^3/uL (0.0-0.7) Basophils # (Auto) 0.0 x10^3/uL (0.0-0.2) Segmented Neutrophils % 48 % (35-66) Band Neutrophils % 3 % (0-9) Lymphocytes % 22 % (24-48) Monocytes % 25 % (0-10) Eosinophils % 1 % (0-5) Basophils % 1 % (0-3) Platelet Estimate Adequate (ADEQUATE) Sodium Level 140 mmol/L (136-145) Potassium Level 3.6 mmol/L (3.5-5.1) Chloride Level 96 mmol/L (98-107) Carbon Dioxide Level 41 mmol/L (21-32) Anion Gap 3 (6-14) Blood Urea Nitrogen 13 mg/dL (8-26) Creatinine 0.7 mg/dL (0.7-1.3) Estimated GFR (Cockcroft-Gault) 139.7 Glucose Level 91 mg/dL (70-99) Calcium Level 9.6 mg/dL (8.5-10.1) Brief Hospital Course Mr Morris is a 58 yo M w/ PMHx OA, HTN, Hyperlipidemia, phimosis with urinary retention, Diabetes 2 admitted for shortness of breath, found in hypercapnic respiratory failure with acute CHF exacerbation, right pleural effusion. Seen by cardiology and pulmonology, started on aggressive diuresis and BIPAP. Patient seen and examined Patient in NAD. Used BIPAP last night. UOP has been excellent, K low today Still very swollen, up to chair today, still not able to lay flat. D/w family bedside need for further diuresis. ABG consistent with border on contraction alkalosis, have d/w pulmonology, did d/c zaroxyln, change furosemide to PO. He is able to ambulate today. Weight 166kg after approximately 16L diuresis. Echo consistent with RVSP elevated, right ventricular hypertrophy - COR PULMONALE - he is permanently disabled and will likely need home O2 and chcf cardiac medications as well as home health. CTPA - 1. Suboptimal PE study due to contrast bolus timing and breathing motion artifact. No central embolus. Laceration of segmental and subsegmental pulmonary arteries is limited. 2. Small to moderate volume right pleural effusion with consolidation in the right lung base which may be secondary to passive atelectasis from adjacent pleural effusion or pneumonia. 3. Small volume perihepatic ascites, nonspecific. [id number] hypoxemic hypercapnic respiratory failure. Morbid obesity. Suspect obstructive sleep apnea/OHS. Pleural effusion, right greater than left. Suspect chronic acute cor pulmonale. Protein malnutrition, present upon admission. Discharge Information Condition at Discharge: Improved Follow Up: Weeks (2) Disposition/Orders: D/C to Home w/ HH Scheduled Furosemide (Furosemide) 40 Mg Tablet, 40 MG PO BID for CHF for 30 Days, #60 Ref 2 Prescribed by: ANTONIO SAAVEDRA MD on 11/05/18 1444 Glimepiride (Amaryl) 1 Mg Tablet, 2 TAB PO DAILY for Diabetes, #30 Ref 5 (Reported) Entered as Reported by: JESUSITA SILVA on 10/29/18139 Last Taken: Unknown Dose on 10/28/18 Last Action: Converted on 10/29/18 1410 by BIJU MEAD MD Lisinopril (Lisinopril) 5 Mg Tablet, 2 TAB PO DAILY for CHF for 30 Days, #60 Ref 2 can sub with 10mg tabs Prescribed by: ANTONIO SAAVEDRA MD on 11/05/18 1444 Lisinopril/Hydrochlorothiazide (Lisinopril-Hctz 20-12.5 Mg Tab) 1 Each Tablet, 1 TAB PO DAILY for HTN, #30 Ref 5 (Reported) Entered as Reported by: JESUSITA SILVA on 10/29/18 0140 Last Taken: Unknown Dose on 10/28/18 Last Action: HELD on 11/02/18 1321 by ANTONIO SAAVEDRA MD Metformin Hcl (Metformin Hcl Er) 500 Mg Tab.er.24h, 500 MG PO BIDWMEALS, #60 Prescribed by: NILESH CARTER on 11/29/17 1029 Last Action: Converted on 10/29/18 1410 by BIJU MEAD MD Metformin Hcl (Metformin Hcl Er) 500 Mg Tab.er.24h, 500 MG PO DAILYWBKFT for ANTI-DIABETIC, Ref 0 (Reported) Entered as Reported by: JESUSITA SILVA on 10/29/18 0140 Last Taken: Unknown Dose on 10/28/18 Last Action: HELD on 11/02/18 1321 by ANTONIO SAAVEDRA MD Metoprolol Succinate (Metoprolol Succinate ( Xl )) 25 Mg Tab.er.24h, 0.5 TAB PO DAILY for CHF for 30 Days, #15 Ref 5 Prescribed by: ANTONIO SAAVEDRA MD on 11/05/18 1450 Potassium Chloride (Potassium Chloride) 20 Meq Tablet.er, 40 MEQ PO DAILY for CHF for 30 Days, #60 Ref 2 Prescribed by: ANTONIO SAAVEDRA MD on 11/05/18 1444 Discontinued Medications Amlodipine Besylate (Norvasc) 2.5 Mg Tablet, 1 TAB PO DAILY, #30 Ref 1 Prescribed by: NILESH CARTER on 11/29/17 1029 Last Action: HELD on 11/02/18 1321 by ANTONIO SAAVEDRA MD Amlodipine Besylate (Amlodipine Besylate) 5 Mg Tablet, 5 MG PO DAILY for HTN, (Reported) Entered as Reported by: JESUSITA SILVA on 10/29/18 0140 Last Taken: Unknown Dose on 10/28/18 Last Action: HELD on 11/02/18 1321 by ANTONIO SAAVEDRA MD Hydrocodone/Apap 5-325 (Allen 5-325 Tablet) 1 Each Tablet, 1-2 TAB PO Q4-6HRS, #40 (Reported) Entered as Reported by: GERMAN DONNELLY RN on 01/19/18 1602 Last Action: Discontinued on 10/29/18131 by JESUSITA SILVA Oxybutynin Chloride (Oxybutynin Chloride) 5 Mg Tablet, 5 MG PO TID, (Reported) Entered as Reported by: ROXANA DOWD on 01/19/18 1232 Last Action: Discontinued on 10/29/18 013 by JESUSITA SILVA Sulfamethoxazole/Trimethoprim (Bactrim 400-80 Mg Tablet) 1 Each Tablet, 2 TAB PO BID, #20 (Reported) Entered as Reported by: ROXANA DOWD on 01/19/18 1233 Last Action: Discontinued on 10/29/18 0132 by ANTONIO GONZALES MD November 05, 2018 14:51
[2018-11-05 15:00] VITALS: BP 155/97
--- NOTE | 2018-11-05 15:14 | NUR ---
SS following up with discharge planning. SS phoned and faxed order for oxygen and referral to [facility], ; fax [phone]. Pt's spouse spoke with [facility] via phone and provided them with her credit card information for payment for oxygen. Pt provided with tank for home. Pt's RN notified.
--- NOTE | 2018-11-05 17:22 | NUR ---
Discharge Note: DARLINE MUNOZ GLASGOW Discharge instructions and discharge home medications reviewed with Patient and his and a copy given. All questions have been answered and understanding verbalized. Extensive CHF and oxygen therapy given to patient and family. Aprroximately 30 minutes spent with family doing discharge teaching. Patient and state that they understand the current plan of care.
== END 2018-11-05 17:20 | disposition home or self-care (01) | DRG 291 ==
LOC: ER 18:48 → 2 NORTH 22:39
PROVIDERS: ADMIT Internal Medicine; ATTEND Internal Medicine
PROC: 5A09357 Assistance with Respiratory Ventilation, Less than 24 Consecutive Hours, Continuous Positive Airway Pressure (ICD-10-PCS; 2018-11-01)
PROC: 5A09357 Assistance with Respiratory Ventilation, Less than 24 Consecutive Hours, Continuous Positive Airway Pressure (ICD-10-PCS; 2018-11-02)
PROC: 5A09357 Assistance with Respiratory Ventilation, Less than 24 Consecutive Hours, Continuous Positive Airway Pressure (ICD-10-PCS; principal; 2018-11-03)
DX: I11.0 Hypertensive heart disease with heart failure (principal); J96.21 Acute and chronic respiratory failure with hypoxia; J96.22 Acute and chronic respiratory failure with hypercapnia; E46 Unspecified protein-calorie malnutrition; E87.3 Alkalosis; I47.2 Ventricular tachycardia; R18.8 Other ascites; Z68.42 Body mass index [BMI] 45.0-49.9, adult; B35.1 Tinea unguium; I50.33 Acute on chronic diastolic (congestive) heart failure; E11.40 Type 2 diabetes mellitus with diabetic neuropathy, unspecified; E66.01 Morbid (severe) obesity due to excess calories; Z96.652 Presence of left artificial knee joint; E78.5 Hyperlipidemia, unspecified; M19.90 Unspecified osteoarthritis, unspecified site; G47.33 Obstructive sleep apnea (adult) (pediatric); I27.29 Other secondary pulmonary hypertension; I27.81 Cor pulmonale (chronic); R32 Unspecified urinary incontinence; Z83.3 Family history of diabetes mellitus; Z90.49 Acquired absence of other specified parts of digestive tract
CPT/HCPCS: 99285; C8929; 36415; 36600; 71045; 71275; 80048; 80053; 80061; 80307; 81001; 82805; 82962; 83036; 83735; 83880; 84443; 84484; 85007; 85025; 85379; 93005; 94618; 94660; 94760; 94799; 96374; 96375; J0360; J1650; J1940; J3475; J7042; Q9956; Q9967; 97110; 97116; 97530; 97535